=== PATIENT | female | born 1970 | race Caucasian/White ===

== ENCOUNTER → 2016-03-23 12:29 | Day surgery (SDC) | payer OTHER ==
[~2016-03-23 12:29] MED LIST: Buffered Lidocaine 1% SYR 3ML* 3 ML/SYR SYRINGE INTRADERM ONE; Buffered Lidocaine 1% SYR 3ML* 3 ML/SYR SYRINGE ONE; Bupivacaine 0.25% EPI 200,000* 30 ML SDV ONE; Dexamethasone IV* 4 MG/ML 1 ML (4 MG) ONE; Dexamethasone TAB* 4 MG PO ONE; Famotidine IV* 10 MG/ML 2 ML (20 mg) IV ONE; Famotidine IV* 10 MG/ML 2 ML (20 mg) ONE; Glycopyrrolate IV* 0.2 MG/ML 1 ML VIAL ONE; KETAMINE HCL* 50 MG/ML 10 ML VIAL ONE; Ketorolac INJ* 30 MG/ML 1 ML VIAL ONE; Lidocaine 2% MPF* 2 ML VIAL ONE; Midazolam* 1 MG/ML 5 ML VIAL (5 MG) ONE; Morphine INJ* 10 MG/ML 1 ML CARPUJECT ONE; Morphine INJ* 2 MG/ML 1 ML CARPUJECT IV PRN; Neostigmine Methylsulfate* 2 MG/2 ML SYRINGE ONE; Ondansetron INJ* 2 MG/ML VIAL ONE; PROCHLORPERAZINE INJ 5 MG/ML 2 ML VIAL IV PRN; PROCHLORPERAZINE INJ 5 MG/ML 2 ML VIAL ONE; Propofol* 10 MG/ML 20 ML BTL IV PUSH ONE; Scopolamine 1.5 mg* PATCH ONE; Scopolamine 1.5 mg* PATCH TRANSDERM ONE; Scopolamine PATCH Remove* 1 NOTE MISC PATCH OFF ONE; ceFAZolin 2 GM PREMIX (*) 2 GM/50 ML BAG IVPB ONE; fentaNYL* 50 MCG/ML 2 ML VIAL (100 MCG VIAL) ONE; oxyCODONE/Acetamin 5/325 MG* TAB ONE; oxyCODONE/Acetamin 5/325 MG* TAB PO PRN
[2016-03-23 13:12] LABS: Manual Entry Verification HAN0055; UR Preg Internal Control QC Line Present
--- NOTE | 2016-03-23 16:22 | SURGPN ---
Brief Operative Note - Surgery Procedures: Procedures OPERATIVE REPORT PRE-OP: Right upper abdominal pain POST-OP: Same PROCEDURE: Laparoscopic cholecystectomy SURGEON: MD Eddy ANESTHESIA: General with Local with DrChago [place] ASST: YELENA Rod IVF: 1 liter of crystalloid EBL: min SPECIMEN: gallbladder DRAIN: none WOUND CLASS: 2 COMPLICATIONS: none TO PACU
[2016-03-23] MEDS: fentaNYL* 50 MCG/ML 2 ML VIAL (100 MCG VIAL) IV PRN ×4 (17:16→18:10)
[2016-03-23 20:19] VITALS: BP 118/70
--- NOTE | 2016-03-24 08:37 | OP ---
DATE OF OPERATION: 03/23/16 - [facility] DATE OF : 70 SURGEON: Jorge Kam MD PRESIDENT AND CEO: YELENA Miller ANESTHESIOLOGIST: Dr. Quiles. ANESTHESIA: General with local. PRE-OPERATIVE DIAGNOSIS: Right upper quadrant abdominal pain. POST-OPERATIVE DIAGNOSIS: Right upper quadrant abdominal pain. OPERATIVE PROCEDURE: Laparoscopic cholecystectomy. ESTIMATED BLOOD LOSS: Minimal. WOUND CLASSIFICATION: II. DRAINS: None. COMPLICATIONS: None. SPECIMEN: Gallbladder. FINDINGS: Normal appearing gallbladder, liver, and stomach. BRIEF HISTORY: Ms. Madina Reyes is a 46-year-old woman with significant right upper quadrant abdominal pain consistent with biliary tract disease present for THE last six to eight months who has undergone extensive workup which, however, has been unremarkable. She has no other abdominal complaints; and, after a long discussion which has been clearly documented in the office notes and preoperatively transcribed history and physical, she is now to undergo an elective laparoscopic cholecystectomy in the hope that this will improve her discomfort. As had been emphasized, there is significant risks which have all been explained as well as the strong possibility that removing her gallbladder may not improve her symptoms and she may have recurrent pain in the face of significant potential for risks. Both she and her are aware of this, and give their written informed consent to proceed. DESCRIPTION OF PROCEDURE: Written informed consent was obtained. The abdomen was marked with indelible ink and preoperative antibiotics were administered. The patient was taken to the operating room, placed in a supine position. Sequential compression devices and a warming blanket were applied. General anesthesia was administered, and the abdomen was prepped and draped in the usual sterile fashion. Time-out verification was completed. Next, a small transverse incision was made just above the umbilicus at the midline. The peritoneal cavity was entered under direct vision. A 12-mm blunt port was inserted, and the abdomen was insufflated to 15 mmHg. Under direct vision, an 11-mm epigastric port was placed and two 5-mm ports were placed on the right side of the abdominal wall. The gallbladder was identified. It was bluish in color and its wall was thin. There were some adhesions from the omentum which were taken down sharply, but did not appear to be pathologic. The liver, both the right and left lobes of the liver, were normal. No pericholecystic fluid or wall thickening. The gallbladder was elevated up over the liver bed and, with care, the peritoneum along the medial and lateral aspects of the gallbladder was taken down to identify the cystic duct and artery as they entered the gallbladder. I took a significant portion of the inferior part of the gallbladder off the liver bed using the critical view technique to assure myself of these structures. The cystic duct appeared to be of normal and expected caliber. The cystic duct and artery were then doubly clipped and divided, and the gallbladder was removed from the liver bed using cautery and placed in an Endo Catch bag and brought out through the epigastric port. The liver was elevated. There was no evidence of bleeding or bile leak. All ports were removed under direct vision of the camera. At this point, it was noted that there was some bleeding from the lateral 5-mm port site, which is not controlled with pressure, and I did place a single 0 Polysorb transfascial suture using the EndoClose needle with successful control of the bleeding that had been running down the abdominal wall internally up over the liver. This blood was irrigated and hemostasis was assured. Once again, the ports were all removed. The umbilical fascia was closed with interrupted 0 Polysorb suture. The skin at all four incisions was approximated with subcuticular 4-0 Polysorb suture. Steri-Strips and sterile dressings were applied. The patient tolerated the procedure well, and was taken to the recovery room in stable condition. CC: [facility]; Dr. Joe Hubbard, Gastroenterology; Dr. Kyrie Pearson, [facility] Internal Medicine. * [id number]/CPS #: [id number] MTDD
== END | disposition home or self-care (01) ==
LOC: OR 12:29
PROVIDERS: ATTEND Surgery
DX: K81.1 Chronic cholecystitis (principal); G35 Multiple sclerosis
CPT/HCPCS: 81025; 88304; A9270-GY; J0690; J0780; J1100; J1885; J2250; J2270; J2405; J2704; J3010

== ENCOUNTER 2017-01-06 17:55 | Emergency (ER) | payer OTHER ==
[2017-01-06 18:12] VITALS: BP 115/74
[2017-01-06] MEDS ORDERED: Ciprofloxacin TAB* 500 MG PO ONE (18:55)
[2017-01-06] MEDS ORDERED: Phenazopyridine TAB* 100 MG PO ONE (18:55)
--- NOTE | 2017-01-06 21:37 | UC ---
Rocky Orlando Thomas, scribed for Ezekiel Morris MD on 01/06/17 at 1855 . Complaint Female HPI - HPI Summary HPI Summary: The pt is a 46 y/o F presenting to Urgent Care c/o dysuria and hematuria that began three days ago but worsened today. The pain is rated 8/10. The pain is aggravated by voiding and is alleviated by nothing. 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 Pt additionally c/o lower abdominal pain. Pt denies back pain, flank pain, fever, and chills. Her last menstrual cycle ended one week ago. - History Of Current Complaint Chief Complaint: UCGU Stated Complaint: UTI Time Seen by Provider: 01/06/17 18:38 Hx Obtained From: Patient Hx Last Menstrual Period: one week ago ended Onset/Duration: Lasting Days - 3, Still Present, Worse Since - today Timing: Constant Severity Currently: Moderate Pain Intensity: 8 Pain Scale Used: 0-10 Numeric Aggravating Factor(s): Urination Alleviating Factor(s): Nothing Associated Signs And Symptoms: Negative: Fever, Back Pain - Allergies/Home Medications Allergies/Adverse Reactions: Allergies Allergy/AdvReac Type Severity Reaction Status Date / Time Azithromycin Allergy Rash Verified 01/06/17 18:12 SURGICAL TAPE Allergy RED RASH Uncoded 01/06/17 18:12 PMH/Surg Hx/FS Hx/Imm Hx Previously Healthy: Yes - NEGATIVE: HTN, DM - Surgical History Surgical History: Yes Surgery Procedure, Year, and Place: 1986 TONSILLECTOMY, [place]. 2013 [facility]ROID [facility]SY WITH [facility] [place] [facility] - Family History Known Family History: Positive: Other - Patient states FHx is not relevant to current complaint - Social History Lives: With Family Alcohol Use: Occasionally Alcohol Amount: 1-2 Substance Use Type: None Smoking Status (MU): Never Smoked Tobacco - Immunization History Most Recent Influenza Vaccination: 2014/2015 Review of Systems Gastrointestinal: Abdominal Pain - lower Genitourinary: Dysuria, Hematuria Is Patient Immunocompromised?: No All Other Systems Reviewed And Are Negative: Yes Physical Exam Triage Information Reviewed: Yes Vital Signs: Initial Vital Signs Temp 97.3 F 01/06/17 18:09 Pulse 89 01/06/17 18:09 Resp 12 01/06/17 18:09 BP 115/74 01/06/17 18:09 Pulse Ox 99 01/06/17 18:09 Vital Signs Reviewed: Yes - Additional Comments VITAL SIGNS: Reviewed. GENERAL: Patient is a well developed and nourished female who is lying comfortable in the stretcher. Patient is not in any acute respiratory distress. HEAD AND FACE: Normocephalic EYES: PERRLA, EOMI x 2. EARS: Hearing grossly intact. MOUTH: Oropharynx within normal limits. NECK: Supple, trachea is midline, no adenopathy, no JVD, no carotid bruit. CHEST: Symmetric, no tenderness at palpation LUNGS: Clear to auscultation bilaterally. No wheezing or crackles. CVS: Regular rate and rhythm, S1 and S2 present, no murmurs or gallops appreciated. ABDOMEN: Soft, non-tender. Bowel sounds are normal. No abdominal abnormal pulsations. EXTREMITIES: Full ROM in all major joints, no edema, no cyanosis or clubbing. NEURO: Alert and oriented x 3. No acute neurological deficits. Speech is normal and follows commands. SKIN: Dry and warm Complaint Female Dx - Course Course Of Treatment: The pt is a 46 y/o F presenting to Urgent Care c/o dysuria and hematuria that began three days ago but worsened today. Patient additionally c/o lower abdominal pain. Patient denies back pain, flank pain, fever, and chills. The patient is diagnosed with cystitis. She will be discharged with a prescription of Ciprofloxacin and Pyridium. She will follow up with her primary care physician in three days. - Differential Dx/Diagnosis Differential Diagnosis/HQI/PQRI: Urinary Tract Infection Provider Diagnoses: Cystitis. Discharge - Discharge Plan Condition: Stable Disposition: HOME Prescriptions: Ciprofloxacin TAB* [Cipro 500 MG TAB*] 500 mg PO BID #6 tab Phenazopyridine TAB* [Pyridium 100 mg TAB*] 100 mg PO TID #9 tab Patient Education Materials: Urinary Tract Infection in Women (ED), Pelvic Pain in Women (ED) Referrals: John Pearson MD [Primary Care Provider] - 3 Days Additional Instructions: Follow up with your primary care provider in 3 days. Return to urgent care for any new or worsening symptoms. The documentation as recorded by the Rocky esteves Thomas accurately reflects the service I personally performed and the decisions made by , Ezekiel Morris MD.
== END 2017-01-06 19:22 | disposition home or self-care (01) ==
LOC: UCEAST 17:55
DX: N30.91 Cystitis, unspecified with hematuria (principal)
CPT/HCPCS: 87077; 87086; 87186; 99212; A9270-GY; G0463

== ENCOUNTER 2017-01-17 11:13 | Emergency (ER) | payer OTHER ==
[2017-01-17 11:25] VITALS: BP 113/61
--- NOTE | 2017-01-17 12:02 | UC ---
Back Pain HPI - HPI Summary HPI Summary: Pt presents with flank pain. She tells me that she was seen here about 10 days for UTI like symptoms, had a positive UA, and was treated with cipro for 3 days - but did not have full resolution of her symptoms. She waited until 01/15 and called her PCP who rx'd Bactrim - she took a dose of that and developed a rash. Called her PCP the next day and was told to stop Bactrim and stop Amoxicillin, which she took one dose of yesterday. Today she presents with continued urinary symptoms, frequency, burning, and bladder spasms accompanied by b/l flank pain. She reports that over the last 5 days she has felt feverish, but has not taken her temp. Mild nausea, but not vomiting. No abdominal pain other than suprapubic discomfort related to urine sxs. Denies SOB, cough, chest pain, V/D/C, hematuria, vaginal discharge, bleeding, or odor. - History of Current Complaint Hx Obtained From: Patient Hx Last Menstrual Period: 12/23/16 Onset/Duration: Gradual Onset Timing: Constant Severity Initially: Moderate Severity Currently: Moderate Pain Intensity: 6 Pain Scale Used: 0-10 Numeric Character: Sharp, Dull, Aching <Dylan White - Last Filed: 01/17/17 12:23> <Kanika Romeo - Last Filed: 01/17/17 12:42> - History of Current Complaint Chief Complaint: UCGU Stated Complaint: LOWER BACK PAIN - Allergies/Home Medications Allergies/Adverse Reactions: Allergies Allergy/AdvReac Type Severity Reaction Status Date / Time Azithromycin Allergy Rash Verified 01/17/17 11:21 Sulfamethoxazole Allergy flushing Verified 01/17/17 11:21 w/Trimethoprim rash [From Bactrim] chills joint pain SURGICAL TAPE Allergy RED RASH Uncoded 01/17/17 11:21 PMH/Surg Hx/FS Hx/Imm Hx Previously Healthy: Yes Neurological History: Other Other Neurological History: MS - Surgical History Surgical History: Yes Surgery Procedure, Year, and Place: 1986 TONSILLECTOMY, [place]. 2013 [facility]ROID BIOPSY WITH [facility] [place] [facility]. hakeem - Family History Known Family History: Positive: Other - Patient states FHx is not relevant to current complaint Family History: NON CONTRIBUTORY - Social History Alcohol Use: Occasionally Alcohol Amount: 1-2 Substance Use Type: None Smoking Status (MU): Never Smoked Tobacco - Immunization History Most Recent Influenza Vaccination: <Dylan White - Last Filed: 01/17/17 12:23> Review of Systems Constitutional: Fever, Chills Skin: Negative Eyes: Negative ENT: Negative Respiratory: Negative Cardiovascular: Negative Gastrointestinal: Nausea Genitourinary: Dysuria, Frequency, Urgency Motor: Negative Neurovascular: Negative Musculoskeletal: Other: - Flank pain Neurological: Negative Psychological: Negative All Other Systems Reviewed And Are Negative: Yes <Dylan White - Last Filed: 01/17/17 12:23> Physical Exam Triage Information Reviewed: Yes Appearance: Well-Appearing, Well-Nourished Vital Signs: Initial Vital Signs Temp 98 F 01/17/17 11:22 Pulse 79 01/17/17 11:22 Resp 16 01/17/17 11:22 BP 113/61 01/17/17 11:22 Pulse Ox 100 01/17/17 11:22 Vital Signs Reviewed: Yes Neck: Positive: Supple, Nontender, No Lymphadenopathy Respiratory: Positive: Chest non-tender, Lungs clear, Normal breath sounds, No respiratory distress, No accessory muscle use Cardiovascular: Positive: RRR, No Murmur, Pulses Normal Abdomen Description: Positive: No Organomegaly, Soft, CVA Tenderness (R) - Mild , CVA Tenderness (L) - Mild, Other: - TTP over suprapubic region. Negative: Distended, Guarding Bowel Sounds: Positive: Present Musculoskeletal: Positive: Strength Intact - Spine, ROM Intact - Spine, No Edema Neurological: Positive: Alert, Muscle Tone Normal Psychological: Positive: Age Appropriate Behavior Skin: Negative: rashes <Dylan White - Last Filed: 01/17/17 12:23> Vital Signs: Initial Vital Signs Temp 98 F 01/17/17 11:22 Pulse 79 01/17/17 11:22 Resp 16 01/17/17 11:22 BP 113/61 01/17/17 11:22 Pulse Ox 100 01/17/17 11:22 <Kanika Romeo - Last Filed: 01/17/17 12:42> Back Pain Course/Dx - Course Course Of Treatment: Pt with history of positive UA and culture, had relief with cipro - but not complete resolution of symptoms. UA today shows no sign of infection, which is not surprising given recent anbx history. Signs and symptoms of potential mild pyelonephritis - will treat with po Cipro for 7 days. Advised to monitor for fever, nausea, vomiting, or increasing back pain to go to ED - Differential Dx/Diagnosis Differential Diagnosis/HQI/PQRI: Renal Colic, Strain, Sprain, Other - UTI. pyelonephritis Provider Diagnoses: Flank pain. UTI <Dylan White - Last Filed: 01/17/17 12:23> Discharge <Dylan White - Last Filed: 01/17/17 12:23> <Kanika Romeo - Last Filed: 01/17/17 12:42> - Discharge Plan Condition: Stable Disposition: HOME Prescriptions: Ciprofloxacin TAB* [Cipro 250 MG Tab*] 250 mg PO BID #14 tab Patient Education Materials: Urinary Tract Infection in Women (ED), Kidney Infection (ED) Referrals: John Pearson MD [Primary Care Provider] - Additional Instructions: Drink plenty of water! Monitor for increasing fever, chills, nausea, vomiting, back pain, or blood in your urine - if you develop any of these please go to the ED Attestation Statement User Type: Provider - I was available for consult. This patient was seen by the EUGENIO. The patient was not presented to, seen by, or examined by me. -Tammi <Kanika Romeo - Last Filed: 01/17/17 12:42>
--- NOTE | 2017-01-18 19:57 | UC ---
Progress - Progress Note Progress Note: urine culture neg no change manangement lj 01/18/17
== END 2017-01-17 12:35 | disposition home or self-care (01) ==
LOC: UCEAST 11:13
DX: Z72.89 Other problems related to lifestyle (principal); N39.0 Urinary tract infection, site not specified
CPT/HCPCS: 81003; 87086; 99212; G0463

== ENCOUNTER 2017-07-24 21:05 | Emergency (ER) | payer OTHER ==
[2017-07-24 21:15] VITALS: BP 124/57
--- NOTE | 2017-07-24 21:23 | UC ---
Complaint Female HPI - HPI Summary HPI Summary: 47 yo female presents with burning with urination since this morning. She tells me that she has a significant history of interstitial cystitis and moderate- severe bladder pain at baseline, but this burning on urination feels different than her usual. She has not tried anything OTC. Has not been sexually active in over a month and does not want STD testing. Denies fever, chills, abdominal pain , n/v/d/c, flank pain, vaginal pain/discharge/odor. - History Of Current Complaint Chief Complaint: UCGU Stated Complaint: POSS UTI Hx Obtained From: Patient Hx Last Menstrual Period: 1 MONTH AGO Onset/Duration: Sudden Onset Timing: Constant Severity Initially: Moderate Severity Currently: Moderate Pain Intensity: 5 Pain Scale Used: 0-10 Numeric Character: Burning - Allergies/Home Medications Allergies/Adverse Reactions: Allergies Allergy/AdvReac Type Severity Reaction Status Date / Time azithromycin Allergy Severe Rash, Verified 07/24/17 21:16 DIFFICULTY BREATHING sulfamethoxazole Allergy Severe FLUSHING Verified 07/24/17 21:16 [From Bactrim] RASH, CHILLS, JOINT PAIN trimethoprim [From Bactrim] Allergy Severe FLUSHING Verified 07/24/17 21:16 RASH, CHILLS, JOINT PAIN SURGICAL TAPE Allergy RED RASH Uncoded 07/24/17 21:16 Home Medications: Home Medications D-Mannose PRN 07/24/17 [History] Ocrelizumab [Ocrevus] PRN 07/24/17 [History Confirmed 07/24/17] Quercitin* PRN 07/24/17 [History] Uva Ursi* PRN 07/24/17 [History] PMH/Surg Hx/FS Hx/Imm Hx - Additional Past Medical History Additional PMH: Interstitial cystitis Respiratory History: Asthma - Surgical History Surgical History: Yes Surgery Procedure, Year, and Place: 1986 TONSILLECTOMY, [place]. 2013 THYROID BIOPSY WITH LOCAL/[facility] [place] [facility]. hakeem - Family History Known Family History: Positive: None - Social History Occupation: Employed Full-time Lives: With Family Alcohol Use: None Alcohol Amount: 1-2 Substance Use Type: None Smoking Status (MU): Never Smoked Tobacco - Immunization History Most Recent Influenza Vaccination: 2014/2015 Review of Systems Constitutional: Negative Skin: Negative Respiratory: Negative Cardiovascular: Negative Gastrointestinal: Negative Genitourinary: Dysuria Neurovascular: Negative Neurological: Negative Psychological: Negative All Other Systems Reviewed And Are Negative: Yes Physical Exam - Summary Physical Exam Summary: GENERAL: NAD. WDWN. No pain distress. SKIN: No rashes, sores, lesions, or open wounds. NECK: Supple. Nontender. No lymphadenopathy. CHEST: CTAB. No r/r/w. No accessory muscle use. Breathing comfortably and in no distress. CV: RRR. Without m/r/g. Pulses intact. Brisk cap refill. ABDOMEN: Moderate TTP over bladder (pt says this is her baseline) Soft. No distention or guarding. No CVA tenderness. Bowel sounds present NEURO: Alert. CN II-XII grossly intact. PSYCH: Age appropriate behavior. Triage Information Reviewed: Yes Vital Signs: Initial Vital Signs Temp 97.5 F 07/24/17 21:11 Pulse 76 07/24/17 21:11 Resp 16 07/24/17 21:11 BP 124/57 07/24/17 21:11 Pulse Ox 100 07/24/17 21:11 Complaint Female Dx - Course Course Of Treatment: UA: negative. She declined a pelvic exam today as she has no vaginal symptoms and would like her urine sent for culture. If no growth and still symptomatic will follow up. She sees [facility] for her IC and will notify them as well. No treatment at this time. - Differential Dx/Diagnosis Provider Diagnoses: Dysuria Discharge - Sign-Out/Discharge Documenting (check all that apply): Discharge/Admit/Transfer - Discharge Plan Condition: Stable Disposition: HOME Referrals: John Pearson MD [Primary Care Provider] - Additional Instructions: If you develop a fever, shortness of breath, chest pain, new or worsening symptoms - please call your PCP or go to the ED. 1) We will call you with your urine culture results - if your symptoms worsen or persist, please follow up. - Billing Disposition and Condition Condition: STABLE Disposition: HOME
== END 2017-07-24 21:45 | disposition home or self-care (01) ==
LOC: UCEAST 21:05
DX: R30.0 Dysuria (principal); J45.909 Unspecified asthma, uncomplicated; Z88.1 Allergy status to other antibiotic agents; Z88.2 Allergy status to sulfonamides; Z91.048 Other nonmedicinal substance allergy status
CPT/HCPCS: 81003; 87086; 99212; G0463

== ENCOUNTER 2017-08-29 18:37 | Emergency (ER) | payer OTHER ==
[2017-08-29] MEDS ORDERED: Famotidine IV* 10 MG/ML 2 ML (20 mg) IV SLOW PU ONE (18:57)
[2017-08-29] MEDS ORDERED: methylPREDNISolone 125 MG* 2 ML VIAL IV ONE (18:57)
--- NOTE | 2017-08-29 19:54 | ED ---
Allergic Reaction/Systemic - HPI Summary HPI Summary: Patient is a 47-year-old female presenting to the ED 30 minutes after a bee sting. Patient is allergic to bees. She had an EpiPen on hand and was able to give herself an injection. Ambulance arrived and gave her 50mg IV Benadryl. She arrives to the ED feeling much improved, however still endorses some tightness to the throat. Vital signs are stable on arrival. She denies any nausea, headache, abdominal pain. - History of Current Complaint Chief Complaint: EDAllergicReaction Time Seen by Provider: 08/29/17 18:41 Hx Obtained From: Patient Hx Last Menstrual Period: 1 MONTH AGO Onset/Duration: Sudden Onset Timing: Constant Severity Initially: Severe Severity Currently: Mild Pain Intensity: 0 Pain Scale Used: 0-10 Numeric Alleviating Factor(s): Antihistamines, Epinephrine Associated Signs And Symptoms: Positive: Throat Tightening - Related Hx Possible Reaction To: Other: - bee - Allergies/Home Medications Allergies/Adverse Reactions: Allergies Allergy/AdvReac Type Severity Reaction Status Date / Time azithromycin Allergy Severe Rash, Verified 07/24/17 21:16 DIFFICULTY BREATHING sulfamethoxazole Allergy Severe FLUSHING Verified 07/24/17 21:16 [From Bactrim] RASH, CHILLS, JOINT PAIN trimethoprim [From Bactrim] Allergy Severe FLUSHING Verified 07/24/17 21:16 RASH, CHILLS, JOINT PAIN bee venom protein (honey bee) Allergy Intermediate Anaphylatic Verified 20:33 Shock SURGICAL TAPE Allergy RED RASH Uncoded 07/24/17 21:16 PMH/Surg Hx/FS Hx/Imm Hx Previously Healthy: Yes Endocrine/Hematology History: Reports: Hx Thyroid Disease - THYROID GOITER AND CYST - BENIGN Denies: Hx Diabetes, Hx Anemia Cardiovascular History: Denies: Hx Hypertension, Hx Pacemaker/ICD Respiratory History: Reports: Hx Asthma - USE INHALER Denies: Hx Chronic Obstructive Pulmonary Disease (COPD) GI History: Reports: Hx Gastroesophageal Reflux Disease - ACID REFLUX, Other GI Disorders - HX MILD GASTRITIS - 2015 Denies: Hx Jaundice, Hx Ulcer History: Reports: Other Problems/Disorders - HX OF UTI'S NONE IN LAST YEAR Denies: Hx Renal Disease Musculoskeletal History: Reports: Hx Bursitis - HX OF LEFT HIP, Other Musculoskeletal History - MS Denies: Hx Osteoporosis Sensory History: Reports: Hx Contacts or Glasses - READING GLASSES Opthamlomology History: Reports: Hx Contacts or Glasses - READING GLASSES Neurological History: Reports: Hx Migraine - RARELY 1 PER YEAR, Other Neuro Impairments/Disorders - MULTIPLE SCLEROSIS - MILD WEAKNESS ON LEFT SIDE - FOOT AND HAND Psychiatric History: Denies: Hx Panic Disorder - Cancer History Hx Chemotherapy: No Hx Radiation Therapy: No - Surgical History Surgery Procedure, Year, and Place: 1986 TONSILLECTOMY, [place]. 2013 THYROID BIOPSY WITH LOCAL/[facility] [place] [facility]. hakeem Hx Anesthesia Reactions: Yes - VOMITING/ THYROID - LOCAL- NEEDED TO INCREASE FOR EFFECT - Immunization History Hx Pertussis Vaccination: No Immunizations Up to Date: Unable to Obtain/Confirm Infectious Disease History: No Infectious Disease History: Reports: History Other Infectious Disease - HSV Denies: Hx Clostridium Difficile, Hx Hepatitis, Hx Human Immunodeficiency Virus (HIV), Hx of Known/Suspected MRSA, Hx Shingles, Hx Tuberculosis, Hx Known/ Suspected VRE, Hx Known/Suspected VRSA, Traveled Outside the [place] in Last 30 Days - Family History Known Family History: Positive: None - Social History Occupation: Employed Full-time Lives: With Family Alcohol Use: None Alcohol Amount: 1-2 Hx Substance Use: No Substance Use Type: Reports: None Hx Tobacco Use: No Smoking Status (MU): Never Smoked Tobacco Review of Systems Constitutional: Negative Negative: Fever, Chills, Fatigue, Skin Diaphoresis Negative: Palpitations, Chest Pain Negative: Shortness Of Breath, Cough Genitourinary: Negative Positive: no symptoms reported, see HPI Negative: Arthralgia, Myalgia Skin: Negative Neurological: Negative All Other Systems Reviewed And Are Negative: Yes Physical Exam Triage Information Reviewed: Yes Vital Signs On Initial Exam: Initial Vitals Temp Pulse Resp BP Pulse Ox 98.3 F 85 16 136/57 100 08/29/17 18:40 08/29/17 18:40 08/29/17 18:40 08/29/17 18:40 08/29/17 18:40 Vital Signs Reviewed: Yes Appearance: Positive: Well-Appearing, Well-Nourished Skin: Positive: Warm, Skin Color Reflects Adequate Perfusion Head/Face: Positive: Normal Head/Face Inspection Eyes: Positive: EOMI, IGNACIO, Conjunctiva Clear ENT: Positive: Pharynx normal, Uvula midline, Other - airway patent. Negative: Tonsillar swelling, Tonsillar exudate, Hoarse voice Neck: Positive: Supple, Nontender, No Lymphadenopathy Respiratory/Lung Sounds: Positive: Clear to Auscultation, Breath Sounds Present Cardiovascular: Positive: RRR, Pulses are Symmetrical in both Upper and Lower Extremities Musculoskeletal: Positive: Normal, Strength/ROM Intact Neurological: Positive: Sensory/Motor Intact, Alert, Oriented to Person Place, Time, Speech Normal Diagnostics - Vital Signs Vital Signs Temp Pulse Resp BP Pulse Ox 08/29/17 18:40 98.3 F 85 16 136/57 100 - Laboratory Lab Statement: Any lab studies that have been ordered have been reviewed, and results considered in the medical decision making process. Allergic Reaction Course/Dx - Course Course Of Treatment: During the course of treatment, the patient is evaluated for allergic reaction due to a bee sting. She had epinephrine from her EpiPen prior to arrival. She was given 50mg IV Benadryl in the ambulance on the way to the ED. Physical examination, she appears well, however states she is still feeling some throat tightness but no difficulty swallowing or difficulty breathing. Airway is patent. Vital signs stable. O2 100% on room air. She is given 125 mg IV methylprednisolone and famotidine 40 mg IV. She is observed for 2 hours in the ED or 2.5 hours since EpiPen delivery. She is feeling much improved and is requesting home. - Diagnoses Provider Diagnoses: Anaphylactic reaction Discharge - Sign-Out/Discharge Documenting (check all that apply): Discharge/Admit/Transfer - Discharge Plan Condition: Stable Disposition: HOME Patient Education Materials: Anaphylaxis (ED) Referrals: John Pearson MD [Primary Care Provider] - Additional Instructions: May take benadryl this evening before bed Drink plenty of water You may take tylenol for any persistent headache tonight return for any worsening symptoms - Billing Disposition and Condition Condition: STABLE Disposition: Home
[2017-08-29] MEDS ORDERED: Ketorolac INJ* 30 MG/ML 1 ML VIAL IV PUSH ONE (20:31)
[2017-08-29 21:16] VITALS: BP 119/66
== END 2017-08-29 21:14 | disposition home or self-care (01) ==
LOC: ED 18:37
DX: T63.441A Toxic effect of venom of bees, accidental (unintentional), initial encounter (principal); T78.2XXA Anaphylactic shock, unspecified, initial encounter; R07.0 Pain in throat; Y92.9 Unspecified place or not applicable; Z91.030 Bee allergy status; Z88.3 Allergy status to other anti-infective agents; Z88.2 Allergy status to sulfonamides
CPT/HCPCS: 96374; 96375; 99282; J1885; J2930

== ENCOUNTER 2017-09-14 12:27 | Emergency (ER) | payer OTHER ==
--- NOTE | 2017-09-14 13:12 | UC ---
Lower Extremity/Ankle HPI - HPI Summary HPI Summary: 47 yo female presents with LEFT ankle and foot pain since this morning. She tells me that she went swimming at the [facility] [place] this morning and didn't realize the water was shallow. Jumped in and inverted her left ankle rolling onto her left foot. Has immediate pain. Since that time has been able to apply pressure, but is walking with the assistance of a walking stick due to pain. Has taken ibuprofen with mild relief. Denies numbness or tingling. - History of Current Complaint Stated Complaint: L ANKLE/FOOT INJURY Time Seen by Provider: 09/14/17 13:12 Hx Obtained From: Patient Hx Last Menstrual Period: 1 MONTH AGO Onset/Duration: Sudden Onset Severity Initially: Moderate Severity Currently: Moderate Pain Intensity: 6 Pain Scale Used: 0-10 Numeric Aggravating Factor(s): Standing, Ambulation Able to Bear Weight: Yes - Allergies/Home Medications Allergies/Adverse Reactions: Allergies Allergy/AdvReac Type Severity Reaction Status Date / Time azithromycin Allergy Severe Rash, Verified 09/14/17 13:22 DIFFICULTY BREATHING sulfamethoxazole Allergy Severe FLUSHING Verified 09/14/17 13:22 [From Bactrim] RASH, CHILLS, JOINT PAIN trimethoprim [From Bactrim] Allergy Severe FLUSHING Verified 09/14/17 13:22 RASH, CHILLS, JOINT PAIN bee venom protein (honey bee) Allergy Intermediate Anaphylatic Verified 13:22 Shock SURGICAL TAPE Allergy RED RASH Uncoded 09/14/17 13:22 PMH/Surg Hx/FS Hx/Imm Hx Respiratory History: COPD - Surgical History Surgical History: Yes Surgery Procedure, Year, and Place: 1986 TONSILLECTOMY, [place]. 2013 THYROID BIOPSY WITH LOCAL/[facility] [place] [facility]. hakeem - Family History Known Family History: Positive: None - Social History Occupation: Employed Full-time Lives: With Family Alcohol Use: None Alcohol Amount: 1-2 Substance Use Type: None Smoking Status (MU): Never Smoked Tobacco - Immunization History Most Recent Influenza Vaccination: 2014/2015 Review of Systems Constitutional: Negative Skin: Negative Respiratory: Negative Cardiovascular: Negative Gastrointestinal: Negative Neurovascular: Negative Musculoskeletal: Other: - Left ankle pain. Left foot pain Neurological: Negative Psychological: Negative All Other Systems Reviewed And Are Negative: Yes Physical Exam - Summary Physical Exam Summary: GENERAL: NAD. WDWN. No pain distress. SKIN: No rashes, sores, lesions, or open wounds. NECK: Supple. Nontender. No lymphadenopathy. CHEST: No accessory muscle use. Breathing comfortably and in no distress. CV: Pulses intact PT and DP. Brisk cap refill. MSK: Left ankle: Mild TTP at posterior lateral malleolus. FROM. Strength 5/5. No edema or obvious bony deformities. Negative talar tilt. No increased laxity. LEFT FOOT: Moderate TTP at base of 5th MT. NEURO: Alert. Sensations intact and symmetric B/L LEs PSYCH: Age appropriate behavior. Triage Information Reviewed: Yes Vital Signs: Vital Signs: Temp Pulse Resp BP Pulse Ox 98.7 F 80 18 110/62 100 09/14/17 13:16 09/14/17 13:16 09/14/17 13:16 09/14/17 13:16 09/14/17 13:16 Vital Signs Reviewed: Yes Lower Extremity Course/Dx - Course Course Of Treatment: XR ankle and foot: IMPRESSION: NEGATIVE EXAMINATION. CAM boot and crutches provided. Advised to f/u with Sports Medicine in 1 week. - Differential Dx/Diagnosis Provider Diagnoses: Left foot pain Discharge - Sign-Out/Discharge Documenting (check all that apply): Patient Departure - Discharge Plan Condition: Stable Disposition: HOME Patient Education Materials: Arthralgia (ED) Referrals: John Pearson MD [Primary Care Provider] - [facility] [Provider Group] - 1 Week Additional Instructions: If you develop a fever, shortness of breath, chest pain, new or worsening symptoms - please call your PCP or go to the ED. 1) Rest, Ice, and elevate your foot/ankle as much as possible 2) Use the CAM boot and crutches as much as possible 3) Please schedule a follow up with Sports Medicine at the number below for 1 week - Billing Disposition and Condition Condition: STABLE Disposition: Home
[2017-09-14 13:21] VITALS: BP 110/62
--- NOTE | 2017-09-14 13:55 | RAD ---
INDICATION: Left ankle pain COMPARISON: None TECHNIQUE: AP, lateral, and oblique views were obtained. FINDINGS: The bony structures, joint spaces, and soft tissues are normal for age. IMPRESSION: NEGATIVE EXAMINATION.
--- NOTE | 2017-09-14 13:56 | RAD ---
INDICATION: Left foot injury COMPARISON: None TECHNIQUE: AP, lateral, and oblique views were obtained. FINDINGS: The bony structures, joint spaces, and soft tissues are normal for age. IMPRESSION: NEGATIVE EXAMINATION.
== END 2017-09-14 14:49 | disposition home or self-care (01) ==
LOC: UCEAST 12:27
DX: M79.672 Pain in left foot (principal); J44.9 Chronic obstructive pulmonary disease, unspecified; Z88.2 Allergy status to sulfonamides; Z88.1 Allergy status to other antibiotic agents; Z91.048 Other nonmedicinal substance allergy status; Z91.030 Bee allergy status
CPT/HCPCS: 99212; G0463

== ENCOUNTER 2017-10-20 19:33 | Emergency (ER) | payer OTHER ==
[2017-10-20 19:41] VITALS: BP 114/71
--- OUTSIDE RECORDS SUMMARY | 2017-10-20 19:42 | XMS REPORT ---
:1970 External Reference #:[id number] Author Organization [facility] [place] Address [address] [place] [address] Phone [phone] Care Team Providers Name Role Phone Zeke Pearson M.D. Primary Care Physician Unavailable Payers Type Date Identification Numbers Payment Provider Subscriber Commercial Policy Number: [id number] [employer] Ppo/Pos/Epo/Nap Juan Reyes Group Number: [id number] [address] PayID: [id number] [place] [address] Problems Date Description Provider Status Onset: 09/10/2014 Multiple sclerosis Berkley Frye O.D. Active Note: 2008 Onset: Asthma Active Onset: Migraine Active Onset: Herpes simplex Active Onset: 09/10/2014 Taking medication Berkley Frye O.D. Active Onset: Gastroesophageal reflux disease Active Onset: 09/12/2015 Presbyopia Berkley Frye O.D. Active Onset: 10/25/2015 Punctate keratitis Berkley Frye O.D. Active Onset: 09/23/2016 Hypermetropia Berkley Frye O.D. Active Onset: Concussion injury of brain Active Note: 12/2017 Onset: Chronic interstitial cystitis Active Onset: 09/24/2017 Headache Berkley Frye O.D. Active Onset: 09/24/2017 Postconcussion syndrome Berkley Frye O.D. 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[employer] ETOH Use Denies alcohol use Smoking Patient has never smoked Recreational Drug Use Denies Drug Use Daily Caffeine Does Not Consume Caffeine Allergies, Adverse Reactions, Alerts Date Description Reaction Status Severity Comments 09/12/2015 Azithromycin active 09/12/2015 Bee Sting Anaphylaxis active 09/24/2017 Sulfa Antibiotics active 09/10/2014 NKDA inactive Medications Medication Date Status Form Strength Qnty SIG Indications Ordering Provider [place] 3 Active Capsules 1200mg Unknown /0000 Vitamin D Active Tablets 1000Unit every day Unknown /0000 Magnesium Citrate Active Tablets 100mg Unknown /0000 Lunesta Active Tablets 1mg as needed Unknown /0000 Epipen 2-Zane Active Solution 0.3mg/0.3 Unknown /[address] Auto-Inje ML ct Dulera Active Aerosol 100-5mcg/ 2 puff Unknown /0000 Act twice a day as needed Valacyclovir HCL Active Tablets 500mg 1x per Unknown /0000 day Proair HFA Active Aerosol 108(90Bas as needed Unknown /0000 e) mcg/Act Heparin Sodium Active Solution [id number] Unknown (Porcine) /0000 /ML Lidocaine HCL (PF) Active Solution 1% Instill Unknown /0000 Into Bladder as Needed For Bladder Pain But No More Than Once Lidocaine Active Ointment 5% Unknown /0000 Phenazopyridine HCL Active Tablets 100mg Unknown /0000 Famciclovir Active Tablets 250mg Unknown /0000 Ocrevus Active Solution 300mg/10M infusion Unknown /0000 L q 6 months Quercetin Active Tablets 250mg Unknown /0000 Cystorenew Active Unknown /0000 Gilenya Hx Capsules 0.5mg Unknown /0000 - 09/23 Alvesco Hx Aerosol 160mcg/Ac Unknown /0000 t - 09/10 Famciclovir / Hx Tablets 250mg [place], Zeke /0000 Harish Sullivan - 09/22 Auvi-Q Hx Solution 0.3mg/0.3 Unknown /0000 Auto-Inje ML - ct 09/10 Multi Vitamin Daily Hx Tablets Unknown /0000 - 09/23 Tri-Sprintec Hx Tablets 0.18/0.21 Unknown /0000 5/0.25 - mg-35 mcg 09/23 Prednisone Hx Tablets 5mg Take 8 Unknown /0000 Tablets - By Mouth 09/23 Daily For 2 Days Estradiol Hx Cream 0.1mg/GM Rasheeda, / Cheri Ochoa M.D. 09/23 Ciclopirox Hx Solution 8% Zeke Pearson / Harish Sullivan - 09/23 Amoxicillin/Clavula Hx Tablets 875-125mg Unknown zora Potassium /0000 - 09/23 Oseltamivir Hx Capsules 75mg Zeke Pearson Phosphate / Harish Sullivan - 09/23 Methylprednisolone Hx TBPK 4mg Take as Unknown /0000 Directed - On 09/23 Ciprofloxacin HCL Hx Tablets 250mg Unknown /0000 - 09/23 Amoxicillin Hx Capsules 500mg [place]queen, / Kelby D Gabriela Sullivan 09/23 Sulfamethoxazole/Tr Hx Tablets 800-160mg Ten, imethoprim DS / Graciela Ochoa M.D. 09/23 Ciprofloxacin HCL Hx Tablets 500mg Unknown / - 09/23 Cyclobenzaprine HCL Hx Tablets 10mg Schulz, / Genet - N.P 09/23 Cefdinir Hx Capsules 300mg Unknown /0000 - 09/23 Results Description No Information Procedures Date CPT Code Description Status 09/23/2016 32490 Scanning Computerized Opthalmic Diagnostic Posterior Completed Seg Retina 09/23/2016 57953 Determination Of Refractive State Completed 09/23/2016 76329 Est Patient Comprehensive Exam Completed 09/12/2015 39254 Scanning Computerized Opthalmic Diagnostic Posterior Completed Seg Retina 09/12/2015 89439 Est Patient Comprehensive Exam Completed 09/10/2014 69198 Scanning Computerized Opthalmic Diagnostic Posterior Completed Seg Retina 03/12/2014 18608 Est Patient Intermediate Exam Completed 07/18/2013 18335 Scanning Computerized Opthalmic Diagnostic Posterior Completed Seg Retina 06/23/2013 38088 Est Patient Intermediate Exam Completed 06/10/2012 34221 Est Patient Comprehensive Exam Completed 02/05/2011 25354 Determination Of Refractive State Completed 02/05/2011 69517 Est Patient Comprehensive Exam Completed 11/09/2008 78809 Visual Field Exam Extended Completed 11/02/2008 84274 Determination Of Refractive State Completed 11/02/2008 40527 Est Patient Comprehensive Exam Completed 09/06/2007 49587 Est Patient Comprehensive Exam Completed Encounters Type Date Location Provider CPT E/M Dx Office Visit 10/25/2015 Faisal Brooks MD, Berkley Frye O.D. [id number] H16.142 2:15p pc Office Visit 09/10/2014 Faisal Brooks MD, Berkley Frye O.D. [id number] 340 10:30a pc V58.69 Office Visit 07/18/2013 12:30p Faisal Brooks MD, Berkley Frye O.D. 40649 V58.69 pc V58.69 [id number] Plan of Care 09/24/2017 - Berkley Frye O.D.G35 Multiple sclerosisComments:Smoking can increase the risk of developing or worsening any eye related disease, as well as affect your overall health. If you are a smoker, we strongly recommend that you quit.If you are not a smoker, we strongly recommend that you do not start.F07.81 Postconcussional syndromeComments:Try to take a break from the computer screen every 20 min and look at something 20 ft away for 20 sec to allow your eyes to relax. Also consider turning the brightness down on your monitor.Follow up:1 year You can expect to have your eyes dilated at your next visit. If Dr. Frye orders any additional testing, it may require extra time. We recommend that you bring sunglasses, as dilation drops often make you light sensitive until they wear off. We always recommend you bring someone to drive you home if you are uncomfortable driving with your eyes dilated. If you have any questions before your next visit, feel free to call our office at .R5 HeadacheComments:You have a headache that is not eye related. Please follow up with your primary care doctor.H52.4 PresbyopiaComments:You have presbyopia. This is when the lens in your eye loses the ability to change focus , and happens as we age. A pair of reading glasses will help you see up close.H52.03 Hypermetropia, bilateralComments:You have Hyperopia, or far sightedness, I have given you a prescription for glasses.
--- OUTSIDE RECORDS SUMMARY | 2017-10-20 19:42 | XMS REPORT ---
:1970 External Reference #:[id number] [facility] Address [address] [address] [place] [address] Phone [phone] Care Team Providers Name Role Phone John Pearson MD Primary Care Physician Unavailable Payers Type Date Identification Numbers Payment Provider Subscriber Commercial Policy Number: [id number] [employer] Juan Reyes [employer] Number: [id number] [id number] PayID: [id number] [place] [address] Problems Date Description Provider Status Onset: 06/28/2009 Multiple sclerosis John Pearson M.D.,FACP Active Onset: 06/28/2009 Vitamin D deficiency John Pearson M.D.,FACP Active Onset: 02/27/2013 Genital herpes simplex John Pearson M.D.,FACP Active Onset: 10/05/2013 Intermittent asthma John Pearson M.D.,FACP Active Onset: 10/05/2013 Ventricular premature beats John Pearson M.D.,FACP Active Onset: 10/17/2014 Non-toxic nodular goiter John Pearson M.D.,FACP Active Onset: 09/16/2016 Cholecystectomy John Pearson M.D.,FACP Active Onset: 05/21/2017 Migraine with aura John Pearson M.D.,FACP Active Note: rare Onset: 09/20/2017 Sprain of ankle Armando Healy MD Active Family History Date Family Member(s) Problem(s) Comments Father Heart Disease arrhythmia Mother Obesity Mother Hypertension Mother Arthritis Mother Gallstones Mother Hysterectomy for fibroids Siblings 1 First Brother Obesity First Brother glucose problems Paternal Grandfather Diabetes, Non Insulin Dependent Maternal Grandfather Parkinson's Disease Maternal Grandmother Cancer, Breast Social History Type Date Description Comments Marital Status Lives With 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 Cigarette Use Never Smoked Cigarettes ETOH Use 02/24/2017 Drinks 5 Alcoholic Beverages Per Week Recreational Drug Use Denies Drug Use Smoking Patient has never smoked Daily Caffeine Does Not Consume Caffeine Exercise Type/Frequency Exercises regularly 6-7days/week General Hx Text 1 stepson Allergies, Adverse Reactions, Alerts Date Description Reaction Status Severity Comments 05/04/2013 Azithromycin rash active 10/05/2013 Bee Sting Shock active Fatal 01/16/2017 Sulfamethoxazole / active Mild to Moderate flushing, joint Trimethoprim pain, headaches 03/15/2008 NKDA inactive Medications Medication Date Status Form Strength Qnty SIG Indications Ordering Provider Valacyclovir HCL 07/29 Active Tablets 1gm 30tab one tablet A60.00 ora s po daily MD Brina Famciclovir 07/29 Active Tablets 500mg 30tab one tablet A60.00 ora s po bid x 5 MD Brina days prn exacerbati on Norgestim-Eth 07/29 Active Tablets 0.18/0.21 28tab one tablet A60.00 Dvorah Estrad Triphasic 5/0.25 s po daily MD Brina mg-35 mcg Penlac 05/21 Active Solution 8% 6.600 topical ml qd, jose antonio Pearson, weekly w/ M.D.,FACP alcohol wipes Medrol 02/26 Active Tablets 4mg 1pak medrol dosepalinh Pearson, as M.D.,FACP directed Famciclovir 11/11 Active Tablets 250mg 30tab 2 tabs x1, s then 1 tab Cris Pearson, twice a M.D.,FACP day for 2 days, then 1/2 tab twice a day for 5 days, repeat as needed Maxalt 02/17 Active Tablets 10mg 12tab take one Criselda s daily as Leon, needed for M.D. migraines Eszopiclone 10/17 Active Tablets 3mg 30tab take 1 s tablet by [facility] every night at bedtime as needed for insomnia -- maximum daily dose of 1 tablet per day Epipen 2-Zane 08/24 Active Device 0.3mg/0.3 1unit use prn 995.0 ML s Varn, N.P. Vitamin D 08/05 Active Tablets 1000Unit 5 po qd Laurie Quintero Active Tablets 0.8mg 1 po qd Unknown Vitamins /0000 Magnesium Active Tablets 120mg 2 tab po Unknown Citrate daily Proair HFA Active Aerosol 108(90Bas 1unit 2 puffs by Unknown /0000 e) s mouth mcg/Act every 4 hours as needed Flonase Active Suspension 50mcg/Act 16uni Inhale One 477.9 Ezekiel E. /0000 ts [place] Into Elma, Each M.D. Nostril Once Daily prn [place] 3 Active Capsules 1000mg 3 by mouth Unknown / qd. Valacyclovir HCL Active Tablets 500mg 90tab 1 tab s daily Cris Pearson M.D.,[facility] Dulera Active Aerosol 200-5mcg/ 2 puff Unknown Act twice a day Ocrevus Active Solution 300mg/10M Q6 months / L Zyrtec Allergy Active Capsules 10mg take one tablet by mouth in the evening prn Sudafed 12 Hour Active Tablets ER 120mg 1 by mouth Unknown 12HR twice day as needed Quercetin Active Tablets 50mg 2 tabs Unknown /0000 once a day Aloe Vera Active Capsules 25mg 2 tabs Unknown /0000 twice a day Tamiflu 04/23 Hx Capsules 75mg 10cap 1 by mouth John s twice a Cris Pearson, - day x 5 M.DChago,FACP Doxycycline 02/24 Hx Tablets 100mg 20tab 1 by mouth John s twice a Cris Pearson, - day [facility] 03/06 Ciprofloxacin 01/17 Hx Tablets 250mg 14tab one by Other s mouth Ordering - twice a Provider 01/24 day for days Amoxicillin 01/16 Hx Capsules 500mg 15cap 1 by mouth Kelby D. s three [place], - times a M.D. Bactrim DS 01/09 Hx Tablets 800-160mg 6tabs 1 tablet Graciela /2017 twice a Cotton, - day for 3 M.D. Acetaminophen-Co 04/01 Hx Tablets 300-15mg 20tab 1-2 tabs Alba Landon deine #2 s by mouth MD Kirill - every 4h 01/03 as needed pain Cipro 03/03 Hx Tablets 250mg 10tab twice a John s day for 5 D. Lili, - days prn M.D.,[facility] 01/03 UTI Gabapentin 02/25 Hx Capsules 100mg 90cap 1 tablet Criselda s by mouth Leon, - up to 3 M.D. 01/03 times day, as need for pain Omeprazole 01/[address] 20mg 30cap 1 by mouth s every day Cris Pearson, - when on M.D.,[facility] 02/24 NSAIDs Meloxicam 01/22 Hx Tablets 7.5mg 60tab 1 by mouth s twice a Cris Pearson, - day for 2 M.D.,[facility] 02/24 wks as needed Sucralfate 10/24 Hx Suspension 1GM/10ML 480un 10 K29.00 its milliliter Cris Pearson, - s four M.D.,[facility] 01/22 times a day as needed Omeprazole 07/[address] 20mg 30cap 1 tab bid J02.9 s for 6 wks Cris Pearson, - then qd M.D.,[facility] 01/22 Dulera 07/15 Hx Aerosol 200-5mcg/ 1unit 2 puff Act s twice a Ordering - day Provider 04/29 [place] 05/14 Hx Aerosol 160mcg/Ac 1 puff t twice a Cris Pearson, - day M.D.,[facility] 07/15 [place] 10/13 Hx Aerosol 80mcg/Act 6.1un Inhale 1 its puff By Cris Pearson, - Mouth Two [facility] 05/14 Daily Cipro 04/04 Hx Tablets 250mg 10tab 1 tablet 599.0 Stephen s by mouth KIRSTIN York - twice a 04/09 day x's days [facility] Miconazole 04/04 Hx Kit 4% Apply as 599.0 Stephen 3-Day Combo directed KIRSTIN York - if you 04/09 vaginal itching, burning, thick curd like discharge Ciprofloxacin 03/28 Hx Tablets 250mg 10tab 1 twice a 590.81 s day x 5 Cris Pearson, - days M.D.,[facility] 04/04 [place] 02/26 Hx Aerosol 80mcg/Act 60uni 1 puff 493.92 ts inhaled Cris Pearson, - twice a M.D.,[facility] 03/28 day for weeks then as directed [place] 01/26 Hx Aerosol 160mcg/Ac 2unit one t s inhalation MD Sandra - s am&pm 10/13 using spacer rinse mouth after use Lysine 10/05 Hx Capsules 500mg 1 by mouth every day Cris Pearson, - M.D.,[facility] 06/22 [place] 08/28 Hx Aerosol 80mcg/Act 60uni 1 puff 493.92 ts inhaled Cris Pearson, - twice a M.D.,[facility] 10/05 day for weeks then as directed Mupirocin 08/17 Hx Ointment 2% 22gm apply once 709.8 daily Varn, N.P. - 08/28 Ibuprofen 08/01 Hx Tablets 800mg 60tab take 1 727.3 Duyen s tablet 3 Gilbert, - times a N.P. 08/17 day. Azelastine HCL 06/22 Hx Solution 0.05% 6ml 1 drop 372.05 twice a Lora, - day as Laurie, FACP 08/01 needed Robitussin DM 05/26 Hx Syrup 100-10mg/ 355ml take 1 5ML teaspoons Varn, N.P. - by mouth 06/22 every hours as needed for cough Augmentin 05/26 Hx Tablets 875-125mg 20tab one by 461.9 s mouth Varn, N.P. - every 12 / hours ten days Fluconazole 05/26 Hx Tablets 100mg 3tabs 1 po every 461.9 3 days Varn, N.P. - 06/22 Tobramycin 05/26 Hx Solution 0.3% 5ml 2 drops in 372.00 each eye Varn, N.P. - every 4 while awake for 7 days Flovent HFA 05/23 Hx Aerosol 110mcg/Ac 1unit 2 puffs t s twice Varn, N.P. - daily 06/22 Benzonatate 05/18 Hx Capsules 100mg 30cap one by 466.0 s mouth Varn, N.P. - three 06/01 daily as needed for cough Medrol (Zane) 05/18 Hx Tablets 4mg 1Pak as 466.0 directed Varn, N.P. - 05/24 Azithromycin 04/26 Hx Tablets 250mg 6tabs two tabs 466.0 day one, Varn, N.P. - one daily 05/04 till Flovent HFA 04/26 Hx Aerosol 44mcg/Act 1unit 2 puffs 466.0 s twice Varn, N.P. - daily 05/10 Ventolin HFA 04/26 Hx Aerosol 108(90Bas 1unit 1 to 2 466.0 e) s inhalation Varn, N.P. - mcg/Act s every 4 04/04 hours needed Tylenol/Codeine 04/26 Hx Tablets 300-30mg 20tab one or two 466.0 Zeke- Harish # s tablets by Cris Pearson, - mouth M.DChago,[facility] 05/26 every to 6 hours as needed for pain Famciclovir 02/27 Hx Tablets 250mg 30tab 2 tabs x1, s then 1 tab Cris Pearson, - twice a [facility] 01/22 day for days, then 1/2 tab twice a day for 5 days as needed Lunesta 12/21 Hx Tablets 2mg 20tab one tab hs s prn Gabriela Watson M.D.,[facility] 03/28 Vitamin D 01/23 Hx Capsules 400Unit 2 po bid [facility]riela [facility] 08/05 Vitamin D-1000 01/12 Hx Tablets 1000Unit 1 po qd Gabriela Watson M.D.,[facility] 01/23 Valacyclovir HCL 11/02 Hx Tablets 1gm 90tab Take One 054.10 s Tablet By Cris Pearson, - Mouth M.DChago,[facility] 02/27 Every Malarone 06/23 Hx Tablets 250-100mg 29tab po qd 1 s day prior Cris Pearson, - to travel [facility]ago,[facility] 01/26 through days after Nasonex 07/08 Hx Suspension 50mcg/Act 17g 2 sprays 477.9 in each Cris Pearson, - nostril Evette.Cris,FACP 01/30 once daily Optivar 07/08 Hx Solution 0.05% 6ml 1 drop in 477.9 affected Cris Pearson, - eye bid [facility]ago[facility] 05/14 Fexofenadine HCL 07/04 Hx Tablets 180mg 30tab 1 tab po 477.9 s qd Cris Pearson, [facility]riela Sullivan[facility] 01/26 Ambien CR 04/23 Hx Tablets ER 6.25mg 30tab 1 qhs po s prn Gabriela Watson M.D.,[facility] 12/21 Ciprofloxacin 02/05 Hx Tablets 250mg 10tab 1 bid x 5 599.0 John s days Gabriela Watson M.D.,[facility] 04/14 Penicillin V 07/05 Hx Tablets 500mg 28tab qid for 7 462 John Potassium s days Gabriela Watson M.D.,[facility] 10/25 Tylenol With 07/05 Hx Tablets 300-30mg 16tab 1-2 po qid 462 John Codeine #3 s prn Gabriela Watson M.D.,[facility] 07/04 Amitriptyline 06/28 Hx Tablets ? 30tab 1 tab qhs s Gabriela Watson M.D.,[facility] 02/05 Caltrate 600 06/28 Hx Tablets 600mg bid Gabriela Watson M.D.,[facility] 01/26 Multivitamins 06/28 Hx Tablets 90tab 1 po qd Gabriela Covarrubias M.D.,[facility] 02/06 Copaxone 04/25 Hx Kit 20mg/ml 1Box sc qd Gabriela Watson M.D.,[facility] 03/02 Vitamin D 04/25 Hx Capsules 1000Unit po bid Gabriela Watson M.D.,[facility] 05/14 Valtrex 03/13 Hx Tablets 500mg 12tab Take One s Tablet By Cris Pearson - Mouth Laurie,[facility] 11/02 Every Hours For 3 Days as Needed Maxalt 09/05 Hx Tablets 10mg 18tab po one at 346.10 s onset; june Cris Pearson, - repeat in Laurie,[facility] 01/22 2 hours /2015 x1. max daily dose three. [place]-3 09/05 Hx Capsules 1000mg bid PO Gabriela Watson M.D.,[facility] 07/24 Valtrex 00/00 Hx Unknown /0000 - 03/13 Ambien /00 Hx Tablets 5mg 20tab 1/2-1 Sourav /0000 s tablet po [place], - [facility] prn M.D. 04/23 Ritalin Hx Tablets 5mg 30tab 1/2 po bid Unknown /0000 s - 05/14 Methylphenidate Hx Tablets 10mg 60tab 1/2-1 bid Unknown HCL /0000 s prn - 01/26 Calcium Citrate Hx Tablets 150mg 1 qd Unknown /0000 - 10/16 Lysine Hx Capsules 500mg 1 po bid Unknown /0000 - 05/26 Valacyclovir HCL Hx Tablets 500mg 90tab 1 by mouth Unknown /0000 s every day - 09/27 Augmentin Hx Tablets 875-125mg 20tab one by Unknown /0000 s mouth - every 12 09/15 hours ten days Benzonatate Hx Capsules 200mg 40cap take 1 Unknown /0000 s capsule by - mouth 09/27 times a day if needed Guaifenesin-Code Hx Syrup 100-10mg/ 240ml 2 teaspoon Unknown ine /0000 5ML by mouth - every 4h 09/27 as needed cough Gilenya Hx Capsules 0.5mg 90cap 1 by mouth Unknown /0000 s every - other day 01/03 Lunesta Hx Tablets 3mg Unknown /0000 - 10/16 Melatonin ER 00/ Hx Tablets ER 3mg 1 tab by Unknown /0000 mouth - every 07/24 night prn Pepcid ac Hx Tablets 10mg 1-4 by Unknown /0000 mouth - every day 01/25 Carbamazepine ER 00/ Hx Caps ER 100mg 1 by mouth Unknown /0000 12HR twice a - day prn 03/27 Oxycodone-Acetam Hx Tablets 5-325mg 1-2 by Unknown inophen /0000 mouth - every 4-6 / hours needed for pain. Ibuprofen 00/ Hx Tablets 800mg by mouth Unknown /0000 three - times a 01/03 day needed Cyclobenzaprine Hx Tablets 10mg 10tab one by Genet HCL /0000 s mouth at [place], - bedtime as [employer] 01/20 spasm Immunizations CPT Code Status Date Vaccine Lot # [id number] Given 11/25/2016 Influenza Virus Vaccine, Quadrivalent, Split, [id number] Preservative Free 53282 Given 09/24/2016 Pneumococcal Conjugate Vaccine 13 Valent For [id number] Intramuscular Use 86054 Given 10/24/2015 Influenza Virus Vaccine, Quadrivalent, Split Virus, Im Use [id number] Given 11/30/2014 Fluvirin Im 3Yrs And Older [id number] Given 11/10/2013 Fluvirin Im 3Yrs And Older 26983 Given 11/10/2013 Influenza Virus Vaccine, Quadrivalent, Split, [id number] Preservative Free 53249 Given 10/05/2013 Pneumonia Vaccine [id number] 59358 Given 10/05/2013 Hepatitis A Vaccine Adult Dosage [id number] 54043 Given 01/02/2013 Flu Vaccine Split Virus Preservative Free For Indiv 3Yr Older 64658 Given 05/15/2011 Tdap - Tetanus/Diptheria/Acellular Pertussis [id number] 65293 Given 12/01/2010 Influenza Virus 3Yrs & Over [id number] 01179 Given 12/01/2009 Influenza Virus 3Yrs & Over 93665 Given 01/04/2009 Influenza Virus Vaccine, Pandemic Formulation [id number] 03011 Given 01/04/2009 Administration Swine Flu Shot 79868 Given 01/02/2009 Influenza Virus 3Yrs & Over Vital Signs Date Vital Result Comment 09/27/2017 Height 63 inches 5'3" Weight 136.00 lb Heart Rate 84 /min Respiratory Rate 16 /min Body Temperature 96.3 F Pain Level 4 BMI (Body Mass Index) 24.1 kg/m2 09/20/2017 Height 63 inches 5'3" Weight 136.00 lb Heart Rate 72 /min Respiratory Rate 16 /min Body Temperature 98.3 F Pain Level 0 BMI (Body Mass Index) 24.1 kg/m2 07/29/2017 Height 63 inches 5'3" Weight 136.00 lb Heart Rate 79 /min BP Systolic 110 mmHg BP Diastolic 68 mmHg O2 % BldC Oximetry 97 % BMI (Body Mass Index) 24.1 kg/m2 Last Menstrual Period [id number] 05/21/2017 Weight 138.00 lb Heart Rate 81 /min BP Systolic Sitting 110 mmHg BP Diastolic Sitting 60 mmHg Body Temperature 97.3 F O2 % BldC Oximetry 98 % 02/24/2017 Weight 137.00 lb Heart Rate 86 /min BP Systolic Sitting 120 mmHg BP Diastolic Sitting 60 mmHg Body Temperature 97.5 F O2 % BldC Oximetry 98 % 01/25/2017 Weight 136.12 lb Heart Rate 73 /min BP Systolic Sitting 118 mmHg BP Diastolic Sitting 64 mmHg O2 % BldC Oximetry 98 % 01/20/2017 Weight 134.75 lb Heart Rate 93 /min BP Systolic 92 mmHg BP Diastolic 54 mmHg Body Temperature 97.6 F O2 % BldC Oximetry 98 % 01/04/2017 Weight 135.00 lb Heart Rate 84 /min BP Systolic Sitting 102 mmHg BP Diastolic Sitting 75 mmHg Body Temperature 97.8 F O2 % BldC Oximetry 98 % 09/16/2016 Weight 138.00 lb Heart Rate 74 /min BP Systolic Sitting 128 mmHg BP Diastolic Sitting 70 mmHg Body Temperature 97.2 F O2 % BldC Oximetry 98 % 04/29/2016 Height 63.5 inches 5'3.50" Weight 127.00 lb Heart Rate 68 /min BP Systolic 116 mmHg BP Diastolic 72 mmHg Respiratory Rate 16 /min Body Temperature 98.1 F BMI (Body Mass Index) 22.1 kg/m2 03/31/2016 Heart Rate 76 /min Respiratory Rate 16 /min Body Temperature 97.5 F 03/27/2016 Weight 129.25 lb Heart Rate 79 /min BP Systolic Sitting 110 mmHg BP Diastolic Sitting 78 mmHg Body Temperature 97.3 F O2 % BldC Oximetry 98 % 03/17/2016 Weight 129.00 lb BP Systolic Sitting 118 mmHg BP Diastolic Sitting 80 mmHg Body Temperature 97.4 F 03/06/2016 Height 63.5 inches 5'3.50" Weight 129.00 lb Heart Rate 68 /min BP Systolic 118 mmHg BP Diastolic 68 mmHg Respiratory Rate 16 /min Body Temperature 98.5 F BMI (Body Mass Index) 22.5 kg/m2 02/26/2016 Height 63.5 inches 5'3.50" Weight 129.00 lb Heart Rate 76 /min BP Systolic Sitting 114 mmHg BP Diastolic Sitting 80 mmHg Respiratory Rate 14 /min BMI (Body Mass Index) 22.5 kg/m2 01/23/2016 Weight 127.50 lb Heart Rate 78 /min BP Systolic Sitting 98 mmHg BP Diastolic Sitting 68 mmHg Body Temperature 97.9 F O2 % BldC Oximetry 98 % 10/25/2015 Weight 133.00 lb Heart Rate 69 /min BP Systolic Sitting 110 mmHg BP Diastolic Sitting 62 mmHg Body Temperature 97.5 F O2 % BldC Oximetry 98 % 07/25/2015 Weight 137.00 lb Heart Rate 76 /min BP Systolic Sitting 106 mmHg BP Diastolic Sitting 64 mmHg Body Temperature 98.1 F O2 % BldC Oximetry 98 % 07/08/2015 Height 63.50 inches 5'3.50" Weight 135.00 lb Heart Rate 76 /min BP Systolic Sitting 102 mmHg BP Diastolic Sitting 68 mmHg Respiratory Rate 20 /min BMI (Body Mass Index) 23.5 kg/m2 05/15/2015 Height 63.50 inches 5'3.50" Weight 136.25 lb Heart Rate 74 /min BP Systolic Sitting 108 mmHg BP Diastolic Sitting 68 mmHg Body Temperature 98.0 F O2 % BldC Oximetry 96 % BMI (Body Mass Index) 23.8 kg/m2 01/10/2015 Height 63.50 inches 5'3.50" Weight 137.00 lb Heart Rate 72 /min BP Systolic Sitting 118 mmHg BP Diastolic Sitting 72 mmHg Respiratory Rate 16 /min BMI (Body Mass Index) 23.9 kg/m2 12/21/2014 Height 63.50 inches 5'3.50" Weight 137.00 lb Heart Rate 75 /min BP Systolic Sitting 102 mmHg BP Diastolic Sitting 68 mmHg Body Temperature 96.9 F O2 % BldC Oximetry 98 % BMI (Body Mass Index) 23.9 kg/m2 10/17/2014 Height 63.50 inches 5'3.50" Weight 142.00 lb Heart Rate 82 /min BP Systolic Sitting 101 mmHg BP Diastolic Sitting 68 mmHg Body Temperature 97.9 F O2 % BldC Oximetry 99 % BMI (Body Mass Index) 24.8 kg/m2 04/04/2014 Weight 138.00 lb Heart Rate 80 /min BP Systolic Sitting 92 mmHg BP Diastolic Sitting 60 mmHg Body Temperature 98.5 F O2 % BldC Oximetry 98 % 03/28/2014 Weight 139.00 lb Heart Rate 71 /min BP Systolic Sitting 111 mmHg auto cuff BP Diastolic Sitting 64 mmHg auto cuff Body Temperature 97.4 F 03/05/2014 Height 63.5 inches 5'3.50" Weight 136.00 lb Heart Rate 68 /min BP Systolic Sitting 108 mmHg BP Diastolic Sitting 70 mmHg Respiratory Rate 16 /min BMI (Body Mass Index) 23.7 kg/m2 10/11/2013 Weight 138.25 lb Heart Rate 68 /min BP Systolic Sitting 100 mmHg BP Diastolic Sitting 48 mmHg Body Temperature 98.6 F 10/05/2013 Height 63.75 inches 5'3.75" Weight 139.00 lb Heart Rate 92 /min BP Systolic Sitting 96 mmHg BP Diastolic Sitting 48 mmHg Body Temperature 97.6 F BMI (Body Mass Index) 24.0 kg/m2 09/27/2013 Weight 137.50 lb Heart Rate 72 /min BP Systolic Sitting 102 mmHg BP Diastolic Sitting 64 mmHg BP Diastolic Standing 64 mmHg Body Temperature 98.7 F 08/28/2013 Weight 135.00 lb Heart Rate 67 /min BP Systolic Sitting 108 mmHg BP Diastolic Sitting 72 mmHg Body Temperature 97.8 F 08/17/2013 Weight 137.75 lb Heart Rate 68 /min BP Systolic Sitting 100 mmHg BP Diastolic Sitting 60 mmHg Body Temperature 98.4 F O2 % BldC Oximetry 98 % 08/01/2013 Weight 134.75 lb Heart Rate 74 /min BP Systolic Sitting 106 mmHg BP Diastolic Sitting 62 mmHg O2 % BldC Oximetry 98 % 06/22/2013 Height 63.75 inches 5'3.75" Weight 133.00 lb Heart Rate 64 /min BP Systolic Sitting 100 mmHg BP Diastolic Sitting 68 mmHg Body Temperature 98.4 F BMI (Body Mass Index) 23.0 kg/m2 05/26/2013 Weight 133.50 lb Heart Rate 84 /min BP Systolic 120 mmHg BP Diastolic 66 mmHg Respiratory Rate 16 /min Body Temperature 98.0 F O2 % BldC Oximetry 100 % 05/18/2013 Weight 139.00 lb Heart Rate 80 /min BP Systolic Sitting 110 mmHg BP Diastolic Sitting 60 mmHg Respiratory Rate 18 /min Body Temperature 97.4 F O2 % BldC Oximetry 100 % Peak Flow Meter 290 300; 290; 280 04/26/2013 Weight 137.00 lb Heart Rate 74 /min BP Systolic Sitting 118 mmHg BP Diastolic Sitting 66 mmHg Respiratory Rate 15 /min Body Temperature 98.4 F 02/27/2013 Height 53.75 inches Weight 132.00 lb Heart Rate 80 /min BP Systolic Sitting 94 mmHg BP Diastolic Sitting 50 mmHg BMI (Body Mass Index) 32.1 kg/m2 02/06/2013 Heart Rate 76 /min BP Systolic Sitting 120 mmHg BP Diastolic Sitting 60 mmHg Respiratory Rate 16 /min 08/24/2012 Weight 137.00 lb Heart Rate 60 /min BP Systolic Sitting 100 mmHg BP Diastolic Sitting 56 mmHg 08/04/2012 Height 63.5 inches 5'3.50" Weight 135.00 lb Heart Rate 56 /min BP Systolic 108 mmHg BP Diastolic 60 mmHg Respiratory Rate 12 /min BMI (Body Mass Index) 23.5 kg/m2 01/27/2012 Heart Rate 72 /min BP Systolic 102 mmHg BP Diastolic 62 mmHg Respiratory Rate 16 /min 09/14/2011 Height 63.5 inches 5'3.50" Weight 142.00 lb Heart Rate 60 /min BP Systolic Sitting 110 mmHg BP Diastolic Sitting 78 mmHg Body Temperature 97.8 F BMI (Body Mass Index) 24.8 kg/m2 05/15/2011 Height 63.5 inches 5'3.50" Weight 140.00 lb Heart Rate 64 /min BP Systolic Sitting 104 mmHg BP Diastolic Sitting 68 mmHg BMI (Body Mass Index) 24.4 kg/m2 01/30/2011 Height 63.5 inches 5'3.50" Weight 144.00 lb Heart Rate 78 /min BP Systolic Sitting 100 mmHg BP Diastolic Sitting 62 mmHg BMI (Body Mass Index) 25.1 kg/m2 07/04/2010 Weight 139.00 lb Heart Rate 70 /min BP Systolic Sitting 100 mmHg BP Diastolic Sitting 62 mmHg Body Temperature 97.9 F lt ear 02/05/2010 Weight 140.00 lb Heart Rate 70 /min BP Systolic Sitting 106 mmHg BP Diastolic Sitting 58 mmHg 07/05/2009 Weight 141.50 lb Heart Rate 80 /min BP Systolic 94 mmHg BP Diastolic 70 mmHg Respiratory Rate 16 /min Body Temperature 98.4 F 06/28/2009 Height 63.5 inches 5'3.50" Weight 144.00 lb Heart Rate 72 /min BP Systolic 110 mmHg BP Diastolic 74 mmHg BMI (Body Mass Index) 25.1 kg/m2 04/25/2009 Height 63.5 inches 5'3.50" Weight 142.50 lb Heart Rate 72 /min BP Systolic Sitting 116 mmHg BP Diastolic Sitting 60 mmHg BMI (Body Mass Index) 24.8 kg/m2 09/05/2008 Height 63.5 inches 5'3.50" Weight 145.00 lb Heart Rate 76 /min BP Systolic Sitting 100 mmHg BP Diastolic Sitting 62 mmHg BMI (Body Mass Index) 25.3 kg/m2 05/15/2008 Height 63.5 inches 5'3.50" Weight 149.00 lb Heart Rate 70 /min BP Systolic Sitting 128 mmHg BP Diastolic Sitting 66 mmHg BMI (Body Mass Index) 26.0 kg/m2 05/02/2008 Weight 149.00 lb Heart Rate 72 /min BP Systolic Sitting 102 mmHg BP Diastolic Sitting 64 mmHg 03/15/2008 Height 63.5 inches 5'3.50" Weight 149.00 lb Heart Rate 62 /min BP Systolic Sitting 118 mmHg BP Diastolic Sitting 64 mmHg BMI (Body Mass Index) 26.0 kg/m2 Results Test Date Test Result H/L Range Note Laboratory test 09/11/2017 Vitamin D Total 25(Oh) <pending> finding Laboratory test 09/11/2017 Lyme Disease Serology Negative Negative 1 finding Laboratory test 09/11/2017 Erythrocyte Sed Rate 6 mm/Hr 0-14 finding C Reactive Protein 1.28 mg/L <8.01 CBC Auto Diff 09/11/2017 White Blood Count 6.4 10^3/uL 3.5-10.8 Red Blood Count 4.32 10^6/uL 4.00-5.40 Hemoglobin 14.0 g/dL 12.0-16.0 Hematocrit 41 % 35-47 Mean Corpuscular Volume 94 fL 80-97 Mean Corpuscular Hemoglobin 32 pg High 27-31 Mean Corpuscular HGB Conc 34 g/dL 31-36 Red Cell Distribution Width 12 % 10.5-15 Platelet Count 205 10^3/uL 150-450 Mean Platelet Volume 8.2 um3 7.4-10.4 Abs Neutrophils 4.8 10^3/uL 1.5-7.7 Abs Lymphocytes 1.0 10^3/uL 1.0-4.8 Abs Monocytes 0.5 10^3/uL 0-0.8 Abs Eosinophils 0.1 10^3/uL 0-0.6 Abs Basophils 0 10^3/uL 0-0.2 Abs Nucleated RBC 0 10^3/uL Granulocyte % 75.2 % 38-83 Lymphocyte % 15.2 % Low 25-47 Monocyte % 8.0 % High 0-7 Eosinophil % 1.2 % 0-6 Basophil % 0.4 % 0-2 Nucleated Red Blood Cells % 0 T&B Cell Lymphocyte 07/27/2017 Absolute CD45 Count 1.18 thou/mcL 0.82- 2.84 2 Evaluation Percent CD3 Cells (T Cells) 79 % 58-86 2 Percent CD19 Cells (B Cells) 0 % 6-24 2 % CD16+CD56 Cells (NK Cells) 19 % 4-28 2 Percent CD4 Cell ([place] Cell) 45 % 32-64 2 Percent CD8 Cells (Supp Cell) 34 % 13-40 2 Absolute CD3 Count (T Cells) 930 cells/L 550-2202 2 Absolute CD19 Count (B Cells) 0 cells/L 70-409 2 Absolute CD16+CD56 Count (NK) 223 cells/L 59-513 2 Absolute CD4 Count (Help Cell) 537 cells/L 365-1437 2 Absolute CD8 Count (Supp Cell) 401 cells/L 145-846 2 T-[place]/Suppressor Ratio 1.3 >=0.9 2 T B Cell Comment See Comment 2, 3 CBC Auto Diff 07/27/2017 White Blood Count 5.9 10^3/uL 3.5-10.8 2 Red Blood Count 4.04 10^6/uL 4.0-5.4 2 Hemoglobin 13.0 g/dL 12.0-16.0 2 Hematocrit 38 % 35-47 2 Mean Corpuscular Volume 94 fL 80-97 2 Mean Corpuscular Hemoglobin 32 pg High 27-31 2 Mean Corpuscular HGB Conc 34 g/dL 31-36 2 Red Cell Distribution Width 12 % 10.5-15 2 Platelet Count 239 10^3/uL 150-450 2 Mean Platelet Volume 7.9 um3 7.4-10.4 2 Abs Neutrophils 4.1 10^3/uL 1.5-7.7 2 Abs Lymphocytes 1.2 10^3/uL 1.0-4.8 2 Abs Monocytes 0.5 10^3/uL 0-0.8 2 Abs Eosinophils 0.1 10^3/uL 0-0.6 2 Abs Basophils 0 10^3/uL 0-0.2 2 Abs Nucleated RBC 0 10^3/uL 2 Granulocyte % 69.4 % 38-83 2 Lymphocyte % 20.6 % Low 25-47 2 Monocyte % 8.1 % High 0-7 2 Eosinophil % 1.6 % 0-6 2 Basophil % 0.3 % 0-2 2 Nucleated Red Blood Cells % 0.1 2 Comp Metabolic Panel 07/27/2017 Sodium 139 mmol/L 139-145 2 Potassium 4.0 mmol/L 3.5-5.0 2 Chloride 107 mmol/L 101-111 2 Co2 Carbon Dioxide 27 mmol/L 22-32 2 Anion Gap 5 mmol/L 2-11 2 Glucose 91 mg/dL 70-100 2 Blood Urea Nitrogen 19 mg/dL 6-24 2 Creatinine 0.77 mg/dL 0.51-0.95 2 BUN/Creatinine Ratio 24.7 High 8-20 2 Calcium 8.5 mg/dL Low 8.6-10.3 2 Total Protein 6.3 g/dL Low 6.4-8.9 2 Albumin 4.2 g/dL 3.2-5.2 2 Globulin 2.1 g/dL 2-4 2 Albumin/Globulin Ratio 2.0 1-3 2 Total Bilirubin 0.40 mg/dL 0.2-1.0 2 Alkaline Phosphatase 36 U/L 34-104 2 Alt 16 U/L 7-52 2 Ast 15 U/L 13-39 2 Egfr Non- 80.4 >60 2 Egfr 103.3 >60 2, 4 Poc Urinalysis 07/24/2017 Poc Glucose, Urine Negative Negative Poc Bilirubin, Urine Negative Negative Poc Ketone, Urine Negative Negative Poc Specific Alex, Urine <=1.005 Low 1.010-1.030 Poc Blood, Urine Negative Negative Poc pH, Urine 6.0 5-9 Poc Protein, Urine Negative Negative Poc Urobilinogen, Urine 0.2 Negative Poc Nitrite, Urine Negative Negative Poc Leukocytes, Urine Negative Negative Poc Color, Urine Yellow Poc Clarity, Urine Clear 5 Urine Culture And 07/24/2017 Urine Culture SEE RESULT BELOW 6, 7 Sensitivities Laboratory test finding 06/09/2017 Surgical Pathology SEE RESULT BELOW 8 Urine Culture And 01/25/2017 Urine Culture SEE RESULT BELOW 9 Sensitivities Ua Routine 01/25/2017 Ua Specific Alex 1.015 Ua PH 6 Ua Color yellow Ua Appera clear Ua WBC trace Ua Protein trace Ua Glucose normal Ua Ketones normal Ua Bilirubin neg Ua Urobilinogen neg Ua Nitrite neg Ua Occult Blood large Ua Routine 01/20/2017 Ua Specific Alex 1020 Ua PH 5 Ua Color yellow Ua Appera clear Ua WBC trace Ua Protein neg Ua Glucose neg Ua Ketones neg Ua Bilirubin neg Ua Urobilinogen neg Ua Nitrite neg Ua Occult Blood neg Urine Culture And 01/17/2017 Urine Culture SEE RESULT BELOW 10, 11 Sensitivities Poc Urinalysis 01/17/2017 Poc Glucose, Negative Negative Urine Poc Bilirubin, Urine Negative Negative Poc Ketone, Urine Negative Negative Poc Specific Alex, Urine <=1.005 Low 1.010-1.030 Poc Blood, Urine Trace-intact Negative Poc pH, Urine 5.5 5-9 Poc Protein, Urine Negative Negative Poc Urobilinogen, Urine 0.2 Negative Poc Nitrite, Urine Negative Negative Poc Leukocytes, Urine Negative Negative Poc Color, Urine Yellow Poc Clarity, Urine Clear 12 Urine Culture And 01/07/2017 Urine Culture SEE RESULT BELOW 13, 14 Sensitivities Comp Metabolic Panel 09/24/2016 Sodium 138 mmol/L 133-145 Potassium 4.5 mmol/L 3.5-5.0 Chloride 105 mmol/L 101-111 Co2 Carbon Dioxide 29 mmol/L 22-32 Anion Gap 4 mmol/L 2-11 Glucose 88 mg/dL 70-100 Blood Urea Nitrogen 12 mg/dL 6-24 Creatinine 0.62 mg/dL 0.51-0.95 BUN/Creatinine Ratio 19.4 8-20 Calcium 9.2 mg/dL 8.6-10.3 Total Protein 6.5 g/dL 6.4-8.9 Albumin 4.2 g/dL 3.2-5.2 Globulin 2.3 g/dL 2-4 Albumin/Globulin Ratio 1.8 1-3 Total Bilirubin 0.50 mg/dL 0.2-1.0 Alkaline Phosphatase 39 U/L 34-104 Alt 27 U/L 7-52 Ast 25 U/L 13-39 Egfr Non- 103.6 >60 Egfr 133.3 >60 15 Laboratory test finding 09/24/2016 Hepatitis B Surface Ag Nonreactive Nonreactive Hepatitis C Antibody Nonreactive Nonreactive Quantiferon Gold TB 09/24/2016 M tuberculosis by Quantiferon Negative Negative 16 TB Ag minus Nil Result 0 IU/mL TB Mitogen minus Nil Result > 10.00 IU/mL TB Nil Result 0.04 IU/mL 17 Varicella Zoster Igg AB 09/24/2016 Varicella-Zoster IgG Antibody Positive 18 Varicella IgG Antibody Index 3.7 19 Laboratory test finding 09/24/2016 Immunoglobulin G (Igg) 934 mg/dL 767 - 1590 20 Immunoglobulin M (Igm) 202 mg/dL 37 - 286 21 Immunoglobulin A (Iga) 55 mg/dL 61 - 356 22 T&B Cell Lymphocyte 09/24/2016 Absolute CD45 Count 0.55 thou/mcL 0.82- 2.84 Evaluation Percent CD3 Cells (T Cells) 55 % 58-86 Percent CD19 Cells (B Cells) 5 % 6-24 % CD16+CD56 Cells (NK Cells) 37 % 4-28 Percent CD4 Cell ([place] Cell) 21 % 32-64 Percent CD8 Cells (Supp Cell) 35 % 13-40 Absolute CD3 Count (T Cells) 302 cells/L 550-2202 Absolute CD19 Count (B Cells) 27 cells/L 70-409 Absolute CD16+CD56 Count (NK) 205 cells/L 59-513 Absolute CD4 Count (Help Cell) 114 cells/L 365-1437 Absolute CD8 Count (Supp Cell) 191 cells/L 145-846 T-[place]/Suppressor Ratio 0.6 >=0.9 T B Cell Comment See Comment 23 Ua Routine 03/27/2016 Ua Specific Alex 1.020 Ua PH 5 Ua Color yellow Ua Appera clear Ua WBC trace Ua Protein trace Ua Glucose normal Ua Ketones neg Ua Bilirubin neg Ua Urobilinogen normal Ua Nitrite neg Ua Occult Blood neg Laboratory test 03/23/2016 (HCG) Negative Negative 24 finding Urine Laboratory test 03/23/2016 Surgical Pathology SEE RESULT BELOW 25 finding Comp Metabolic Panel 08/25/2015 Sodium 138 mmol/L 133-145 Potassium 3.7 mmol/L 3.5-5.0 Chloride 105 mmol/L 101-111 Co2 Carbon Dioxide 27 mmol/L 22-32 Anion Gap 6 mmol/L 2-11 Glucose 85 mg/dL 70-100 Blood Urea Nitrogen 12 mg/dL 6-24 Creatinine 0.65 mg/dL 0.51-0.95 BUN/Creatinine Ratio 18.5 8-20 Calcium 9.4 mg/dL 8.6-10.3 Total Protein 7.2 g/dL 6.4-8.9 Albumin 4.7 g/dL 3.2-5.2 Globulin 2.5 g/dL 2-4 Albumin/Globulin Ratio 1.9 1-3 Total Bilirubin 0.40 mg/dL 0.2-1.0 Alkaline Phosphatase 43 U/L 34-104 Alt 44 U/L 7-52 Ast 32 U/L 13-39 Egfr Non- 98.6 >60 Egfr 126.8 >60 26 Laboratory test finding 08/25/2015 Magnesium 1.9 mg/dL 1.9-2.7 Lipase 31 U/L 11.0-82.0 Urinalysis Profile 08/25/2015 Urine Color Yellow Urine Appearance Cloudy Urine Specific Alex 1.021 1.010-1.030 Urine pH 7.0 5-9 Urine Urobilinogen Negative Negative Urine Ketones Negative Negative Urine Protein Negative Negative Urine Leukocytes Negative Negative Urine Blood Negative Negative Urine Nitrite Negative Negative Urine Bilirubin Negative Negative Urine Glucose Negative Negative CBC Auto Diff 08/25/2015 White Blood Count 5.0 10^3/uL 3.5-10.8 Red Blood Count 4.40 10^6/uL 4.0-5.4 Hemoglobin 13.4 g/dL 12.0-16.0 Hematocrit 40 % 35-47 Mean Corpuscular Volume 91 fL 80-97 Mean Corpuscular Hemoglobin 31 pg 27-31 Mean Corpuscular HGB Conc 33 g/dL 31-36 Red Cell Distribution Width 13 % 10.5-15 Platelet Count 196 10^3/uL 150-450 Mean Platelet Volume 8 um3 7.4-10.4 Abs Neutrophils 3.9 10^3/uL 1.5-7.7 Abs Lymphocytes 0.5 10^3/uL Low 1.0-4.8 Abs Monocytes 0.6 10^3/uL 0-0.8 Abs Eosinophils 0 10^3/uL 0-0.6 Abs Basophils 0 10^3/uL 0-0.2 Abs Nucleated RBC 0 10^3/uL Granulocyte % 77.0 % 38-83 Lymphocyte % 10.7 % Low 25-47 Monocyte % 11.4 % High 1-9 Eosinophil % 0.6 % 0-6 Basophil % 0.3 % 0-2 Nucleated Red Blood Cells % 0 Laboratory test 08/25/2015 Lactic Acid 0.7 mmol/L 0.5-2.0 27 finding Laboratory test 07/25/2015 Culture Throat SEE RESULT BELOW 28 finding Laboratory test 07/25/2015 Rapid Group A Strep negative finding Laboratory test 03/12/2015 Erythrocyte Sed Rate 4 mm/Hr 0-14 finding C Reactive Protein < 1.00 mg/L < 5.00 29 Rheumatoid Factor <15 IU/mL <15 30 Creatine Kinase(CK) 50 U/L 10-223 Lyme Disease Serology Negative Negative 31 Vitamin B12 728 pg/mL 180-914 32 CBC Auto Diff 03/12/2015 White Blood Count 3.5 10^3/uL 3.5-10.8 Red Blood Count 4.73 10^6/uL 4.0-5.4 Hemoglobin 14.5 g/dL 12.0-16.0 Hematocrit 44 % 35-47 Mean Corpuscular Volume 94 fL 80-97 Mean Corpuscular Hemoglobin 31 pg 27-31 Mean Corpuscular HGB Conc 33 g/dL 31-36 Red Cell Distribution Width 13 % 10.5-15 Platelet Count 225 10^3/uL 150-450 Mean Platelet Volume 8 um3 7.4-10.4 Abs Neutrophils 2.3 10^3/uL 1.5-7.7 Abs Lymphocytes 0.6 10^3/uL Low 1.0-4.8 Abs Monocytes 0.5 10^3/uL 0-0.8 Abs Eosinophils 0 10^3/uL 0-0.6 Abs Basophils 0 10^3/uL 0-0.2 Abs Nucleated RBC 0 10^3/uL Granulocyte % 65.8 % 38-83 Lymphocyte % 18.4 % Low 25-47 Monocyte % 14.2 % High 1-9 Eosinophil % 1.1 % 0-6 Basophil % 0.5 % 0-2 Nucleated Red Blood Cells % 0 Liver Function Panel 03/12/2015 Total Protein 6.8 g/dL 6.4-8.9 Albumin 4.8 g/dL 3.2-5.2 Globulin 2.0 g/dL 2-4 Albumin/Globulin Ratio 2.4 1-3 Total Bilirubin 0.50 mg/dL 0.2-1.0 Direct Bilirubin 0.10 mg/dL 0.03-0.18 Indirect Bilirubin 0.4 mg/dL 0.3-1.0 Alkaline Phosphatase 38 U/L 34-104 Alt 64 U/L High 7-52 Ast 53 U/L High 13-39 CBC Auto Diff 12/07/2014 White Blood Count 3.3 10^3/uL Low 4.8-10.8 Red Blood Count 4.61 10^6/uL 4.0-5.4 Hemoglobin 14.3 g/dL 12.0-16.0 Hematocrit 43 % 35-47 Mean Corpuscular Volume 94 fL 80-97 Mean Corpuscular Hemoglobin 31 pg 27-31 Mean Corpuscular HGB Conc 33 g/dL 31-36 Red Cell Distribution Width 12 % 10.5-15 Platelet Count 196 10^3/uL 150-450 Mean Platelet Volume 9 um3 7.4-10.4 Abs Neutrophils 2.3 10^3/uL 1.5-7.7 Abs Lymphocytes 0.5 10^3/uL Low 1.0-4.8 Abs Monocytes 0.4 10^3/uL 0-0.8 Abs Eosinophils 0 10^3/uL 0-0.6 Abs Basophils 0 10^3/uL 0-0.2 Abs Nucleated RBC 0.01 10^3/uL Granulocyte % 68.7 % 38-83 Lymphocyte % 16.2 % Low 25-47 Monocyte % 13.3 % High 1-9 Eosinophil % 1.4 % 0-6 Basophil % 0.4 % 0-2 Nucleated Red Blood Cells % 0.2 Liver Function Panel 12/07/2014 Total Protein 6.7 g/dL 6.4-8.9 Albumin 4.7 g/dL 3.2-5.2 Globulin 2.0 g/dL 2-4 Albumin/Globulin Ratio 2.4 1-3 Total Bilirubin 0.50 mg/dL 0.2-1.0 Direct Bilirubin 0.10 mg/dL 0.03-0.18 Indirect Bilirubin 0.4 mg/dL 0.3-1.0 Alkaline Phosphatase 33 U/L Low 34-104 Alt 29 U/L 7-52 Ast 20 U/L 13-39 Lipid Profile (Trig/Chol/HDL) 10/09/2014 Triglycerides 88 mg/dL 33, 34 Cholesterol 158 mg/dL 33, 35 HDL Cholesterol 47.9 mg/dL 33, 36 LDL Cholesterol 93 mg/dL 33, 37 Laboratory test 10/09/2014 Glucose 89 mg/dL 70-100 33, 38 finding Laboratory test 07/08/2014 Urine Culture SEE RESULT BELOW 39 finding Laboratory test 07/08/2014 Urine Culture SEE RESULT BELOW 40 finding Ua Routine 04/04/2014 Ua Specific Alex 1.020 Ua PH 5.0 Ua Color yellow Ua Appera clear Ua WBC neg Ua Protein neg Ua Glucose neg Ua Ketones trace Ua Bilirubin small Ua Urobilinogen neg Ua Nitrite neg Ua Occult Blood neg CBC Auto Diff 03/30/2014 White Blood Count 3.3 10^3/uL Low 4.8-10.8 Red Blood Count 4.43 10^6/uL 4.0-5.4 Hemoglobin 13.6 g/dL 12.0-16.0 Hematocrit 41 % 35-47 Mean Corpuscular Volume 92 fL 80-97 Mean Corpuscular Hemoglobin 31 pg 27-31 Mean Corpuscular HGB Conc 34 g/dL 31-36 Red Cell Distribution Width 13 % 10.5-15 Platelet Count 193 10^3/uL 150-450 Mean Platelet Volume 8 um3 7.4-10.4 Abs Neutrophils 2.2 10^3/uL 1.5-7.7 Abs Lymphocytes 0.6 10^3/uL Low 1.0-4.8 Abs Monocytes 0.5 10^3/uL 0-0.8 Abs Eosinophils 0 10^3/uL 0-0.6 Abs Basophils 0 10^3/uL 0-0.2 Abs Nucleated RBC 0 10^3/uL Granulocyte % 66.1 % 38-83 Lymphocyte % 17.0 % Low 25-47 Monocyte % 15.0 % High 1-9 Eosinophil % 1.3 % 0-6 Basophil % 0.6 % 0-2 Nucleated Red Blood Cells % 0.1 Comp Metabolic Panel 03/30/2014 Sodium 136 mmol/L 133-145 Potassium 4.3 mmol/L 3.5-5.0 Chloride 104 mmol/L 101-111 Co2 Carbon Dioxide 25 mmol/L 22-32 Anion Gap 7 mmol/L 2-11 Glucose 85 mg/dL 70-100 Blood Urea Nitrogen 20 mg/dL 6-24 Creatinine 0.76 mg/dL 0.51-0.95 BUN/Creatinine Ratio 26.3 High 8-20 Calcium 9.2 mg/dL 8.6-10.3 Total Protein 7.0 g/dL 6.4-8.9 Albumin 4.7 g/dL 3.2-5.2 Globulin 2.3 g/dL 2-4 Albumin/Globulin Ratio 2.0 1-3 Total Bilirubin 0.50 mg/dL 0.2-1.0 Alkaline Phosphatase 38 U/L 34-104 Alt 46 U/L 7-52 Ast 30 U/L 13-39 Egfr Non- 82.7 >60 Egfr 106.3 >60 41 Iron & Iron Binding Capacity 03/30/2014 Iron 107 g/dL 50-212 Unsaturated Iron Binding 183 g/dL Total Iron Binding Capacity 290 g/dL 250-450 % Iron Saturation 37 % 15-55 Laboratory test finding 03/30/2014 Ferritin 60.6 ng/mL 11-307 Vitamin B12 528 pg/mL 180-914 42 Folate > 20.00 ng/mL >3.99 Vitamin D, 25 Hydroxy 03/30/2014 25-Hydroxy Vitamin D2 <4.0 ng/mL 25-Hydroxy Vitamin D3 48 ng/mL 25-Hydroxy Vitamin D Total 48 ng/mL 43 Laboratory test finding 03/30/2014 Blue Mussel Allergen IgE <0.35 kU/L 44 Clam Allergen IgE <0.35 kU/L 45 Codfish Allergen IgE <0.35 kU/L 46 Crab Allergen IgE <0.35 kU/L 47 Lobster Allergen IgE <0.35 kU/L 48 Oyster Allergen IgE <0.35 kU/L 49 Aromas Allergen IgE <0.35 kU/L 50 Scallop Allergen IgE <0.35 kU/L 51 Shrimp Allergen IgE <0.35 kU/L 52 Urine Culture And Sensitivities 03/28/2014 Urine Culture (SEE NOTE) 53 Ua Routine 03/28/2014 Ua Specific Alex 1.005 Ua PH 5.0 Ua Color yellow Ua Appera clear Ua WBC neg Ua Protein neg Ua Glucose neg Ua Ketones neg Ua Bilirubin small Ua Urobilinogen neg Ua Nitrite positive Ua Occult Blood neg Urinalysis Profile 03/23/2014 Urine Color Red Urine Appearance Cloudy Urine Specific Alex 1.006 Low 1.010-1.030 Urine pH 6.0 5-9 Urine Urobilinogen Negative Negative Urine Ketones Negative Negative Urine Protein 2+(100 mg/dL) Negative Urine Leukocytes 2+ Negative Urine Blood 3+ Negative Urine Nitrite Positive Negative Urine Bilirubin Negative Negative Urine Glucose 1+(50 mg/dL) Negative Urine White Blood Cell 3+(>20/hpf) Absent Urine Red Blood Cell 3+(>10/hpf) Absent Urine Bacteria 1+ Absent Urine Squamous Epithelial Cell Present Absent Urine Culture And Sensitivities 03/23/2014 Urine Culture (SEE NOTE) 54 Liver Function Panel 03/09/2014 Total Protein 6.7 g/dL 6.4-8.9 Albumin 4.5 g/dL 3.2-5.2 Globulin 2.2 g/dL 2-4 Albumin/Globulin Ratio 2.0 1-3 Total Bilirubin 0.70 mg/dL 0.2-1.0 Direct Bilirubin 0.10 mg/dL 0.03-0.18 Indirect Bilirubin 0.6 mg/dL 0.3-1.0 Alkaline Phosphatase 34 U/L 34-104 Alt 29 U/L 7-52 Ast 23 U/L 13-39 CBC Auto Diff 03/09/2014 White Blood Count 3.2 10^3/uL Low 4.8-10.8 Red Blood Count 4.73 10^6/uL 4.0-5.4 Hemoglobin 14.3 g/dL 12.0-16.0 Hematocrit 43 % 35-47 Mean Corpuscular Volume 90 fL 80-97 Mean Corpuscular Hemoglobin 30 pg 27-31 Mean Corpuscular HGB Conc 33 g/dL 31-36 Red Cell Distribution Width 12 % 10.5-15 Platelet Count 241 10^3/uL 150-450 Mean Platelet Volume 8 um3 7.4-10.4 Abs Neutrophils 2.1 10^3/uL 1.5-7.7 Abs Lymphocytes 0.7 10^3/uL Low 1.0-4.8 Abs Monocytes 0.4 10^3/uL 0-0.8 Abs Eosinophils 0 10^3/uL 0-0.6 Abs Basophils 0 10^3/uL 0-0.2 Abs Nucleated RBC 0 10^3/uL Granulocyte % 65.1 % 38-83 Lymphocyte % 21.5 % Low 25-47 Monocyte % 11.9 % High 1-9 Eosinophil % 1.1 % 0-6 Basophil % 0.4 % 0-2 Nucleated Red Blood Cells % 0 Liver Function Panel 01/16/2014 Total Protein 6.4 g/dL 6.4-8.9 Albumin 4.2 g/dL 3.2-5.2 Globulin 2.2 g/dL 2-4 Albumin/Globulin Ratio 1.9 1-3 Total Bilirubin 0.60 mg/dL 0.2-1.0 Direct Bilirubin 0.10 mg/dL 0.03-0.18 Indirect Bilirubin 0.5 mg/dL 0.3-1.0 Alkaline Phosphatase 29 U/L Low 34-104 Alt 16 U/L 7-52 Ast 16 U/L 13-39 CBC Auto Diff 01/16/2014 White Blood Count 3.2 10^3/uL Low 4.8-10.8 Red Blood Count 4.49 10^6/uL 4.0-5.4 Hemoglobin 13.6 g/dL 12.0-16.0 Hematocrit 40 % 35-47 Mean Corpuscular Volume 90 fL 80-97 Mean Corpuscular Hemoglobin 30 pg 27-31 Mean Corpuscular HGB Conc 34 g/dL 31-36 Red Cell Distribution Width 12 % 10.5-15 Platelet Count 191 10^3/uL 150-450 Mean Platelet Volume 8 um3 7.4-10.4 Abs Neutrophils 2.1 10^3/uL 1.5-7.7 Abs Lymphocytes 0.6 10^3/uL Low 1.0-4.8 Abs Monocytes 0.4 10^3/uL 0-0.8 Abs Eosinophils 0.1 10^3/uL 0-0.6 Abs Basophils 0 10^3/uL 0-0.2 Abs Nucleated RBC 0 10^3/uL Granulocyte % 65.5 % 38-83 Lymphocyte % 19.4 % Low 25-47 Monocyte % 12.6 % High 1-9 Eosinophil % 2.1 % 0-6 Basophil % 0.4 % 0-2 Nucleated Red Blood Cells % 0 Laboratory test finding 12/08/2013 Ferritin 21.8 ng/mL 11-307 Vitamin B12 650 pg/mL 180-914 55 Folate > 20.00 ng/mL >3.99 Vitamin D, 25 Hydroxy 12/08/2013 25-Hydroxy Vitamin D2 <4.0 ng/mL 25-Hydroxy Vitamin D3 61 ng/mL 25-Hydroxy Vitamin D Total 61 ng/mL 56 Iron & Iron Binding Capacity 12/08/2013 Iron 86 g/dL 50-212 Unsaturated Iron Binding 188 g/dL Total Iron Binding Capacity 274 g/dL 250-450 % Iron Saturation 31 % 15-55 Laboratory test finding 12/08/2013 Prealbumin 23 mg/dL 18-38 Comp Metabolic Panel 12/08/2013 Sodium 139 mmol/L 133-145 Potassium 4.2 mmol/L 3.7-5.6 Chloride 110 mmol/L 101-111 Co2 Carbon Dioxide 22 mmol/L 22-32 Anion Gap 7 mmol/L 2-11 Glucose 79 mg/dL 70-100 Blood Urea Nitrogen 10 mg/dL 6-24 Creatinine 0.64 mg/dL 0.51-0.95 BUN/Creatinine Ratio 15.6 8-20 Calcium 9.1 mg/dL 8.6-10.3 Total Protein 7.2 g/dL 6.4-8.9 Albumin 4.5 g/dL 3.2-5.2 Globulin 2.7 g/dL 2-4 Albumin/Globulin Ratio 1.7 1-3 Total Bilirubin 0.50 mg/dL 0.2-1.0 Alkaline Phosphatase 32 U/L Low 34-104 Alt 14 U/L 7-52 Ast 17 U/L 13-39 Egfr Non- 101.3 >60 Egfr 130.2 >60 57 CBC Auto Diff 12/08/2013 White Blood Count 6.4 10^3/uL 4.8-10.8 Red Blood Count 4.53 10^6/uL 4.0-5.4 Hemoglobin 14.0 g/dL 12.0-16.0 Hematocrit 41 % 35-47 Mean Corpuscular Volume 90 fL 80-97 Mean Corpuscular Hemoglobin 31 pg 27-31 Mean Corpuscular HGB Conc 34 g/dL 31-36 Red Cell Distribution Width 12 % 10.5-15 Platelet Count 199 10^3/uL 150-450 Mean Platelet Volume 8 um3 7.4-10.4 Abs Neutrophils 3.5 10^3/uL 1.5-7.7 Abs Lymphocytes 2.4 10^3/uL 1.0-4.8 Abs Monocytes 0.5 10^3/uL 0-0.8 Abs Eosinophils 0.1 10^3/uL 0-0.6 Abs Basophils 0 10^3/uL 0-0.2 Abs Nucleated RBC 0 10^3/uL Granulocyte % 54.0 % 38-83 Lymphocyte % 36.7 % 25-47 Monocyte % 7.6 % 1-9 Eosinophil % 1.2 % 0-6 Basophil % 0.5 % 0-2 Nucleated Red Blood Cells % 0 Cytology Non-[employer] 10/26/2013 [facility] RUN DATE: 10/26/ <SEE NOTE> 58 Laboratory test finding 10/13/2013 Free T4 0.91 ng/mL 0.61-1.12 Total T3 0.99 ng/mL 0.87-1.78 Lipid Profile (Trig/Chol/HDL) 09/29/2013 Triglycerides 50 mg/dL 33, 59 Cholesterol 149 mg/dL 33, 60 HDL Cholesterol 48.2 mg/dL 33, 61 LDL Cholesterol 91 mg/dL 33, 62 Laboratory test finding 09/11/2013 TSH (Thyroid Stimulating 1.09 IU/mL 0.34-5.60 Horm) Liver Function Panel 07/25/2013 Total Protein 7.2 g/dL 6.4-8.9 Albumin 4.6 g/dL 3.2-5.2 Globulin 2.6 g/dL 2-4 Albumin/Globulin Ratio 1.8 1-3 Total Bilirubin 0.40 mg/dL 0.2-1.0 Direct Bilirubin 0.10 mg/dL 0.03-0.18 Indirect Bilirubin 0.3 mg/dL 0.3-1.0 Alkaline Phosphatase 38 U/L 34-104 Alt 16 U/L 7-52 Ast 17 U/L 13-39 Varicella Zoster Igg AB 07/18/2013 Varicella-Zoster IgG Antibody Positive 63 Varicella IgG Antibody Index 4.1 64 Hepatitis Acute Panel 07/18/2013 Hepatitis B Surface Nonreactive Nonreactive Antigen Hepatitis B Core IgM Nonreactive Nonreactive Hepatitis A AB IgM Nonreactive Nonreactive Hepatitis C Antibody Nonreactive Nonreactive CBC Auto Diff 07/18/2013 White Blood Count 5.6 10^3/uL 4.8-10.8 Red Blood Count 4.11 10^6/uL 4.0-5.4 Hemoglobin 13.1 g/dL 12.0-16.0 Hematocrit 39 % 35-47 Mean Corpuscular Volume 94 fL 80-97 Mean Corpuscular Hemoglobin 32 pg High 27-31 Mean Corpuscular HGB Conc 34 g/dL 31-36 Red Cell Distribution Width 13 % 10.5-15 Platelet Count 176 10^3/uL 150-450 Mean Platelet Volume 8 um3 7.4-10.4 Abs Neutrophils 2.9 10^3/uL 1.5-7.7 Abs Lymphocytes 2.2 10^3/uL 1.0-4.8 Abs Monocytes 0.4 10^3/uL 0-0.8 Abs Eosinophils 0.1 10^3/uL 0-0.6 Abs Basophils 0 10^3/uL 0-0.2 Abs Nucleated RBC 0 10^3/uL Granulocyte % 51.1 % 38-83 Lymphocyte % 38.9 % 25-47 Monocyte % 7.8 % 1-9 Eosinophil % 1.5 % 0-6 Basophil % 0.7 % 0-2 Nucleated Red Blood Cells % 0 Rubeola Measles Igg AB 06/17/2013 [place] (Measles) IgG Antibody Positive 65 [place] IgG Antibody Index 6.5 66 Laboratory test finding 06/17/2013 [place] (Measles) IgM Negative Negative 67 Antibody CBC Auto Diff 05/29/2013 White Blood Count 9.7 10^3/uL 4.8-10.8 Red Blood Count 4.73 10^6/uL 4.0-5.4 Hemoglobin 14.7 g/dL 12.0-16.0 Hematocrit 43 % 35-47 Mean Corpuscular Volume 90 fL 80-97 Mean Corpuscular Hemoglobin 31 pg 27-31 Mean Corpuscular HGB Conc 35 g/dL 31-36 Red Cell Distribution Width 14 % 10.5-15 Platelet Count 195 10^3/uL 150-450 Mean Platelet Volume 8 um3 7.4-10.4 Abs Neutrophils 6.6 10^3/uL 1.5-7.7 Abs Lymphocytes 2.1 10^3/uL 1.0-4.8 Abs Monocytes 0.8 10^3/uL 0-0.8 Abs Eosinophils 0.1 10^3/uL 0-0.6 Abs Basophils 0.1 10^3/uL 0-0.2 Abs Nucleated RBC 0.01 10^3/uL Granulocyte % 68.0 % 38-83 Lymphocyte % 22.0 % Low 25-47 Monocyte % 8.0 % 1-9 Eosinophil % 1.2 % 0-6 Basophil % 0.8 % 0-2 Nucleated Red Blood Cells % 0.1 Vitamin D, 25 Hydroxy 05/29/2013 25-Hydroxy Vitamin D2 <4.0 ng/mL 25-Hydroxy Vitamin D3 64 ng/mL 25-Hydroxy Vitamin D Total 64 ng/mL 68 Comp Metabolic Panel 05/29/2013 Sodium 139 mmol/L 133-145 Potassium 4.3 mmol/L 3.7-5.6 Chloride 108 mmol/L 101-111 Co2 Carbon Dioxide 24 mmol/L 22-32 Anion Gap 7 mmol/L 2-11 Glucose 91 mg/dL 70-100 Blood Urea Nitrogen 14 mg/dL 6-24 Creatinine 0.68 mg/dL 0.51-0.95 BUN/Creatinine Ratio 20.6 High 8-20 Calcium 9.6 mg/dL 8.6-10.3 Total Protein 7.4 g/dL 6.4-8.9 Albumin 5.0 g/dL 3.2-5.2 Globulin 2.4 g/dL 2-4 Albumin/Globulin Ratio 2.1 1-3 Total Bilirubin 0.40 mg/dL 0.2-1.0 Alkaline Phosphatase 45 U/L 34-104 Alt 18 U/L 7-52 Ast 19 U/L 13-39 Egfr Non- 94.4 >60 Egfr 121.4 >60 69 Laboratory test finding 05/29/2013 Prealbumin 21 mg/dL 18-38 GGTP 14 U/L 9-64.0 Iron & Iron Binding Capacity 05/29/2013 Iron 194 g/dL 50-212 Unsaturated Iron Binding 124 g/dL Total Iron Binding Capacity 318 g/dL 250-450 % Iron Saturation 61 % High 15-55 Laboratory test finding 05/29/2013 Ferritin 26.8 ng/mL 11-307 Throat-Beta Strept 04/23/2013 Throat Beta Strep Culture (SEE NOTE) 70 Vitamin D, 25 Hydroxy 01/31/2013 25-Hydroxy Vitamin D2 <4.0 ng/mL 25-Hydroxy Vitamin D3 58 ng/mL 25-Hydroxy Vitamin D Total 58 ng/mL 71 Comp Metabolic Panel 01/31/2013 Sodium 138 mmol/L 133-145 Potassium 4.2 mmol/L 3.5-5.0 Chloride 106 mmol/L 101-111 Co2 Carbon Dioxide 25.0 mmol/L 22-32 Anion Gap 7.0 mmol/L 2-11 Glucose 91 mg/dL 70-100 Blood Urea Nitrogen 13 mg/dL 6-24 Creatinine 0.60 mg/dL 0.50-1.40 BUN/Creatinine Ratio 21.7 High 8-20 Calcium 8.9 mg/dL 8.1-9.9 Total Protein 6.1 g/dL Low 6.2-8.1 Albumin 4.2 g/dL 3.6-5.4 Globulin 1.9 g/dL Low 2-4 Albumin/Globulin Ratio 2.2 1-3 Total Bilirubin 0.8 mg/dL 0.4-1.5 Alkaline Phosphatase 35 U/L 30-110 Alt 24 U/L 14-54 Ast 22 U/L 12-42 Egfr Non- 109.6 >60 Egfr 141.0 >60 72 Iron & Iron Binding Capacity 01/31/2013 Iron 104 g/dL 28-170 Unsaturated Iron Binding 166 g/dL Total Iron Binding Capacity 270 g/dL 250-450 % Iron Saturation 39 % 15-55 Laboratory test finding 01/31/2013 Ferritin 19 ng/mL 11-307 CBC Auto Diff 01/31/2013 White Blood Count 5.9 10^3/uL 4.8-10.8 Red Blood Count 4.40 10^6/uL 4.0-5.4 Hemoglobin 13.5 g/dL 12.0-16.0 Hematocrit 40 % 35-47 Mean Corpuscular Volume 91 fL 80-97 Mean Corpuscular Hemoglobin 31 pg 27-31 Mean Corpuscular HGB Conc 34 g/dL 31-36 Red Cell Distribution Width 12 % 10.5-15 Platelet Count 212 10^3/uL 150-450 Mean Platelet Volume 9 um3 7.4-10.4 Abs Neutrophils 2.9 10^3/uL 1.5-7.7 Abs Lymphocytes 2.3 10^3/uL 1.0-4.8 Abs Monocytes 0.5 10^3/uL 0-0.8 Abs Eosinophils 0.1 10^3/uL 0-0.6 Abs Basophils 0 10^3/uL 0-0.2 Abs Nucleated RBC 0 10^3/uL Granulocyte % 49.6 % 38-83 Lymphocyte % 39.5 % 25-47 Monocyte % 8.0 % 1-9 Eosinophil % 2.1 % 0-6 Basophil % 0.8 % 0-2 Nucleated Red Blood Cells % 0.1 Comp Metabolic Panel 09/12/2012 Sodium 141 mmol/L 133-145 Potassium 3.8 mmol/L 3.5-5.0 Chloride 108 mmol/L 101-111 Co2 Carbon Dioxide 26.0 mmol/L 22-32 Anion Gap 7.0 mmol/L 2-11 Glucose 88 mg/dL 70-100 Blood Urea Nitrogen 12 mg/dL 6-24 Creatinine 0.70 mg/dL 0.50-1.40 BUN/Creatinine Ratio 17.1 8-20 Calcium 9.3 mg/dL 8.1-9.9 Total Protein 6.7 g/dL 6.2-8.1 Albumin 4.4 g/dL 3.6-5.4 Globulin 2.3 g/dL 2-4 Albumin/Globulin Ratio 1.9 1-3 Total Bilirubin 0.8 mg/dL 0.4-1.5 Alkaline Phosphatase 41 U/L 30-110 Alt 18 U/L 14-54 Ast 23 U/L 12-42 Egfr Non- 91.8 >60 Egfr 118.0 >60 73 Laboratory test finding 09/12/2012 Ferritin 19 ng/mL 11-307 Vitamin D, 25 Hydroxy 09/12/2012 25-Hydroxy Vitamin D2 <4.0 ng/mL 25-Hydroxy Vitamin D3 61 ng/mL 25-Hydroxy Vitamin D Total 61 ng/mL 74 Laboratory test finding 09/12/2012 Honey Bee Allergen IgE <0.35 kU/L 75 Soybean Allergen IgE <0.35 kU/L 76 White-Faced Hornet Allerg IgE <0.35 kU/L 77 Yellow Hornet Allergen IgE <0.35 kU/L 78 Yellow Jacket Allergen IgE <0.35 kU/L 79 Tryptase 4.8 ng/mL <11.5 80 Paper Wasp Allergen IgE <0.35 kU/L 81 CBC Auto Diff 07/06/2012 White Blood Count 5.2 10^3/uL 4.8-10.8 Red Blood Count 4.84 10^6/uL 4.0-5.4 Hemoglobin 15.2 g/dL 12.0-16.0 Hematocrit 45 % 35-47 Mean Corpuscular Volume 92 fL 80-97 Mean Corpuscular Hemoglobin 31 pg 27-31 Mean Corpuscular HGB Conc 34 g/dL 31-36 Red Cell Distribution Width 13 % 10.5-15 Platelet Count 153 10^3/uL 150-450 Mean Platelet Volume 9 um3 7.4-10.4 Abs Neutrophils 2.3 10^3/uL 1.5-7.7 Abs Lymphocytes 2.3 10^3/uL 1.0-4.8 Abs Monocytes 0.4 10^3/uL 0-0.8 Abs Eosinophils 0.1 10^3/uL 0-0.6 Abs Basophils 0 10^3/uL 0-0.2 Abs Nucleated RBC 0 10^3/uL Granulocyte % 44.8 % 38-83 Lymphocyte % 43.9 % 25-47 Monocyte % 8.2 % 1-9 Eosinophil % 2.5 % 0-6 Basophil % 0.6 % 0-2 Nucleated Red Blood Cells % 0 CBC Auto Diff 12/11/2011 White Blood Count 6.6 10^3/uL 4.8-10.8 Red Blood Count 4.36 10^6/uL 4.0-5.4 Hemoglobin 13.6 g/dL 12.0-16.0 Hematocrit 40 % 35-47 Mean Corpuscular Volume 92 fL 80-97 Mean Corpuscular Hemoglobin 31 pg 27-31 Mean Corpuscular HGB Conc 34 g/dL 31-36 Red Cell Distribution Width 13 % 10.5-15 Platelet Count 201 10^3/uL 150-450 Mean Platelet Volume 8 um3 7.4-10.4 Abs Neutrophils 3.5 10^3/uL 1.5-7.7 Abs Lymphocytes 2.5 10^3/uL 1.0-4.8 Abs Monocytes 0.5 10^3/uL 0-0.8 Abs Eosinophils 0.1 10^3/uL 0-0.6 Abs Basophils 0 10^3/uL 0-0.2 Abs Nucleated RBC 0 10^3/uL Granulocyte % 52.2 % 38-83 Lymphocyte % 37.5 % 25-47 Monocyte % 7.6 % 1-9 Eosinophil % 2.0 % 0-6 Basophil % 0.7 % 0-2 Nucleated Red Blood Cells % 0 Comp Metabolic Panel 12/11/2011 Sodium 138 mmol/L 133-145 Potassium 3.9 mmol/L 3.5-5.0 Chloride 108 mmol/L 101-111 Co2 Carbon Dioxide 24.0 mmol/L 22-32 Anion Gap 6.0 mmol/L 2-11 Glucose 91 mg/dL 70-100 Blood Urea Nitrogen 8 mg/dL 6-24 Creatinine 0.60 mg/dL 0.50-1.40 BUN/Creatinine Ratio 13.3 8-20 Calcium 9.0 mg/dL 8.1-9.9 Total Protein 6.2 GM/DL 6.2-8.1 Albumin 4.1 GM/DL 3.6-5.4 Globulin 2.1 GM/DL 2-4 Albumin/Globulin Ratio 2.0 1-3 Total Bilirubin 0.8 mg/dL 0.1-1.0 82 Alkaline Phosphatase 31 U/L 30-110 Alt 20 U/L 14-54 Ast 24 U/L 12-42 Egfr Non- 110.2 >60 Egfr 141.7 >60 83 Iron & Iron Binding Capacity 12/11/2011 Iron 74 UG/ML 28-170 Unsaturated Iron Binding 220 g/dL Total Iron Binding Capacity 294 g/dL 250-450 Transferrin 209.8 % Iron Saturation 25 % 15-55 Laboratory test finding 12/11/2011 Ferritin 16 NG/ML 11-307 Vitamin B12 796 pg/mL 180-914 Folate 15.3 NG/ML 2-16 Free T4 0.83 NG/ML 0.61-1.24 Total T3 1.16 NG/ML 0.5-1.7 TSH (Thyroid Stimulating Horm) 2.04 MIU/ML 0.34-5.60 Cortisol 15.8 g/dL 84 Vitamin D, 25 Hydroxy 12/11/2011 25-Hydroxy Vitamin D2 <4.0 ng/mL 25-Hydroxy Vitamin D3 26 ng/mL 25-Hydroxy Vitamin D Total 26 ng/mL 85 Celiac Panel 12/11/2011 Immunoglobulin A 72 mg/dL 61 - 356 Tissue Transglutaminase IgA Ab <1.2 U/mL 86 Celiac Interpretation See Comment 87 Vitamin D, 25 Hydroxy 12/11/2011 25-Hydroxy Vitamin D2 <4.0 ng/mL 25-Hydroxy Vitamin D3 26 ng/mL 25-Hydroxy Vitamin D Total 26 ng/mL 88 Celiac Panel 12/11/2011 Immunoglobulin A 72 mg/dL 61 - 356 Tissue Transglutaminase IgA Ab <1.2 U/mL 89 Celiac Interpretation See Comment 90 Vitamin D, 25 Hydroxy 12/11/2011 25-Hydroxy Vitamin D2 <4.0 ng/mL 25-Hydroxy Vitamin D3 26 ng/mL 25-Hydroxy Vitamin D Total 26 ng/mL 91 Carnitine Free & Total 12/11/2011 Total Carnitine 44 nmol/mL 34-78 Free Carnitine 36 nmol/mL 25-54 Acylcarnitine 8 nmol/mL 5-30 Acylcarn/Free Carnitine Ratio 0.2 0.1-0.8 Carnitine Interpretation See Comment 92 Celiac Panel 12/11/2011 Immunoglobulin A 72 mg/dL 61 - 356 Tissue Transglutaminase IgA Ab <1.2 U/mL 93 Celiac Interpretation See Comment 94 Lipid Profile (Trig/Chol/HDL) 05/07/2011 Triglyceride 39 mg/dL Low 40-200 33 Cholesterol 154 mg/dL Less Than 200 33, 95 High Density Lipoprotein 45 mg/dL 40-60 33, 96 Cholesterol/HDL Ratio 3.42 AVERAGE 1-4.44 33 Low Density Lipoprotein 101 mg/dL High Less Than 100 33, 97 Basic Metabolic Panel 05/07/2011 Sodium 138 mmol/L 135-145 33 Potassium 4.3 mmol/L 3.5-5.0 33 Chloride 108 mmol/L 101-111 33 Co2 (Carbon Dioxide) 24.0 mmol/L 22-32 33 Anion Gap 6.0 mmol/L 2-11 33, 98 Glucose 83 mg/dL 70-100 33 BUN 10 mg/dL 6-24 33 Creatinine 0.7 mg/dL 0.50-1.40 33 One Over Creatinine 1.42 33 BUN/Creatinine Ratio 14.3 8-20 33 Calcium 8.9 mg/dL 8.1-9.9 33 eGFR Non- 92.2 > 60 33 eGFR 118.6 > 60 33, 99 Laboratory test finding 05/07/2011 TSH 1.81 MIU/ML 0.34-5.60 33 Urinalysis W/Microscopic 04/08/2010 Ua Color YELLOW Yellow Appearance-Urine CLEAR Clear Specific Alex-Ur 1.019 1.010-1.030 Esterase-Urine 1+ Negative Nitrite NEGATIVE Negative Oolfaurkhvku-If-BDC NEGATIVE Negative Protein-Urine NEGATIVE Negative PH-Urine 6.5 5-9 Blood-Urine 2+ Negative Ketones-Urine NEGATIVE Negative Bilirubin-Ur NEGATIVE Negative Glucose-Urine NEGATIVE Negative WBC-Urine 5-10 0-5 RBC-Urine 15-20 0-2 Epith Cells-Ur FEW None Bacteria-Urine 1+ None Urine Culture & Sensitivi 04/08/2010 Urine Culture ESCHERICHIA COLI 100 Sensitivi Sensitivities For Urine 04/08/2010 Ampicillin <=2 Culture Amikacin <=2 Ciprofloxacin <=0.25 Ceftriaxone <=1 Cefazolin <=4 Nitrofurantoin <=16 Gentamicin <=1 Imipenem <=1 Levofloxacin <=0.12 Trimeth-Sulfa <=20 Ceftazidime <=1 Tigecycline <=0.5 Piperacillin/Tazobactam KB 26 Laboratory test finding 02/14/2010 Rheumatoid Factor < 20.0 IU/mL Less Than 20 Cyclic Citrullinated Pep Igg <15.6 U () 101 Erythrocyte Sed Rate 1 MM/HR 0-15 C Reactive Protein < 0.5 mg/dL Less Than 0.5 CBC With Electronic Diff 01/28/2010 White Blood Count 5.5 CUMM 4.8-10.8 Red Cell Count 4.66 CUMM 4.2-5.4 Hemoglobin 14.2 g/dL 12.0-16.0 Hematocrit 42 % 35-47 Mean Corpuscular Volume 89 um3 79-97 Mean Corpuscular Hemoglob 30 pg 27-31 Mean Corpuscular HGB Cone 34 g/dL 32-36 Redcell Distribution WDTH 12 % 10.5-15 Platelet Count 201 CUMM 150-450 Mean Platelet Volume 7.2 um3 Low 7.4-10.4 Gran % 51.3 % 38-83 Lymph % 38.8 % 25-47 Mononuclear % 7.0 % 1-9 Eosinophil % 2.4 % 0-6 Basophil % 0.5 % 0-2 Abs Lymphs 2.1 1.0-4.8 Abs Mononuclear 0.4 0-0.8 Absolute Neutrophil Count 2.8 1.5-7.7 Abs Eosinophils 0.1 0-0.6 Abs Basophils 0 0-0.2 Lipid Profile (Trig/Chol/HDL) 01/28/2010 Triglyceride 45 mg/dL 40-200 Cholesterol 147 mg/dL Less Than 200 102 High Density Lipoprotein 40 mg/dL 40-60 103 Cholesterol/HDL Ratio 3.68 AVERAGE 1-4.44 Low Density Lipoprotein 98 mg/dL Less Than 100 104 Comp Metabolic Panel 01/28/2010 Sodium 140 mmol/L 135-145 Potassium 3.9 mmol/L 3.5-5.0 Chloride 109 mmol/L 101-111 Co2 (Carbon Dioxide) 24.0 mmol/L 22-32 Anion Gap 7.0 mmol/L 2-11 105 Glucose 89 mg/dL 70-100 106 BUN 11 mg/dL 6-24 Creatinine 0.60 mg/dL 0.50-1.40 One Over Creatinine 1.60 BUN/Creatinine Ratio 18.3 8-20 Calcium 9.2 mg/dL 8.1-9.9 Total Protein 7.1 GM/DL 6.2-8.1 Albumin 4.4 GM/DL 3.6-5.4 Globulin 2.7 GM/DL 2-4 Albumin/Globulin Ratio 1.6 1-3 Bilirubin Total 1.1 mg/dL 0.4-1.5 107 Alkaline Phosphatase 32 U/L 30-110 Alt (SGPT) 22 U/L 14-54 Ast (Sgot) 24 U/L 12-42 eGFR Non- 118.3 > 60 eGFR 143.1 > [address] Wills's Lab Panel 01/28/2010 TSH 1.74 MIU/ML 0.34-5.60 Laboratory test finding 07/05/2009 Throat-Beta Strep NF 109 Culture Vitamin D, 25 Hydroxy 07/02/2009 25-Hydroxy Vitamin D2 <4.0 ng/mL () 25-Hydroxy Vitamin D3 31 ng/mL () 25-Hydroxy Vitamin D Total 31 ng/mL () 110 Laboratory test finding 07/02/2009 TSH 1.53 MIU/ML 0.34-5.60 Thyroxine Free 1.04 NG/ML 0.61-1.24 111 T3 Total 1.37 NG/ML 0.5-1.7 Vitamin B12 1098 pg/mL High 180-914 Urine Culture & Sensitivi 02/17/2009 Urine Culture Sensitivi NF1 112 Urinalysis W/Microscopic 02/17/2009 Ua Color RED Appearance-Urine CLEAR Specific Alex-Ur 1.007 Low 1.010-1.030 Esterase-Urine 1+ Negative Nitrite NEGATIVE Negative Oaljjkyuytjn-Bl-LZL NEGATIVE Negative Protein-Urine TRACE Negative PH-Urine 7.0 5-9 Blood-Urine 3+ Negative Ketones-Urine NEGATIVE Negative Bilirubin-Ur NEGATIVE Negative Glucose-Urine NEGATIVE Negative WBC-Urine 4-6 0-5 RBC-Urine TNTC 0-2 Mucus Urine SMALL Epith Cells-Ur FEW Bacteria-Urine RARE Amorphous Sed-U FEW Vitamin D, 25 Hydroxy 01/11/2009 25-Hydroxy Vitamin D2 <4.0 ng/mL () 25-Hydroxy Vitamin D3 25 ng/mL () 25-Hydroxy Vitamin D Total 25 ng/mL () 113 Laboratory test finding 05/02/2008 (HCG) Serum NEGATIVE Negative 114 TSH 1.27 MIU/ML 0.34-5.60 RPR NON REACTIVE Nonreactive CBC With Manual Diff 01/30/2008 White Blood Count 5.2 CUMM 4.8-10.8 Red Cell Count 4.55 CUMM 4.2-5.4 Hemoglobin 13.7 g/dL 12.0-16.0 Hematocrit 40 % 35-47 Mean Corpuscular Volume 88 um3 79-97 Mean Corpuscular Hemoglob 30 pg 27-31 Mean Corpuscular HGB Cone 34 g/dL 32-36 Redcell Distribution WDTH 12 % 10.5-15 Platelet Count 222 CUMM 150-450 Mean Platelet Volume 7.6 um3 7.4-10.4 Polysegmented Neutrophil 55 % 38-83 Band Neutrophil 1 % 0-8 Lymphocyte 34 % 25-47 Monocyte 3 % 0-13 Eosenophil 2 % 0-6 Basophil 1 % 0-2 Atypical Lymph 4 % 0-6 Absolute Neutrophil Count 2.9 RBC Morphology NORMAL Laboratory test finding 01/30/2008 Angiotensin Converting 10 U/L 7-46 115 Enzyme Laboratory test finding 01/30/2008 PTT (Aptt) 26.7 20.1-28.2 116 Protime 01/30/2008 Protime 12.3 10.9-13.3 Inr 1.03 117 1 No evidence of antibodies to B. burgdorferi detected. False negative results may occur in recently infected patients (<=2 weeks) due to low or undetectable antibody levels to B. burgdorferi. If recent exposure is suspected, a second sample should be collected and tested in 2-4 weeks. Test Performed by: [facility] - [facility] [address] [place] [address] 2 PLEASE FAX RESULTS TO: [phone] RESULT: Reviewed by: Bill Starr M.D., Cris Rizo D(ALFREDO) ADDITIONAL INFORMATION Reference values implemented June 14, 2012. This test was developed using an analyte specific reagent. Its performance characteristics were determined by [facility] in a manner consistent with CLIA requirements. This test has not been cleared or approved by the U.S. Food and Drug Administration. Test Performed by: [facility] - [address] [address] 4 Because ethnic data is not always readily available, this report includes an eGFR for both -Americans and non- Americans. The National Kidney Disease Education Program (NKDEP) does not endorse the use of the MDRD equation for patients that are not between the ages of 18 and 70, are , have extremes of body size, muscle mass, or nutritional status, or are non- or non-. According to the National Kidney Foundation, irrespective of diagnosis, the stage of the disease is based on the level of kidney function: Stage Description GFR(mL/min/1.73 m(2)) 1 Kidney damage with normal or decreased GFR 90 2 Kidney damage with mild decrease in GFR 60-89 3 Moderate decrease in GFR 30-59 4 Severe decrease in GFR 15-29 5 Kidney failure <15 (or dialysis) 5 Payroll And Benefits Specialist: [id number] 7 SEE RESULT BELOW Name: MADINA IRAHETA : [address]: Ezekiel Morris MD Acct: [id number] Unit: [id number] AGE: 47 Location: [facility] Re07/24/17 SEX: F Status: DEP ER SPEC: [id number] AIDE: 07/24/[address] [facility] [address]: Dylan KIRK REQ: [id number] RECD: 07/25/17 STATUS: JESICA WHITTINGTON DR: John Morris MD _ SOURCE: URINE SPDESC: ORDERED: Urine Culture COMMENTS: [id number] Procedure Result Reported Site Urine Culture Final 07/26/17- 1253 ML No Growth (<1,000 CFU/mL) * ML - Main Lab . END OF REPORT DEPARTMENT OF PATHOLOGY, [address] [place] [address] Nuno Birmingham M.D. Director [facility] # [id number] 8 SEE RESULT BELOW Name: ASAEL REYESMADINA : [address]: Cheri Vanessa MD Acct: [id number] Unit: [id number] AGE: 47 Location: [facility] Re06/09/17 SEX: F Status: REG REF SPEC: [id number] AIDE: 06/09/17-[address]: Cheri Vanessa MD REQ: [id number] RECD: 06/09/17 STATUS: BRANDI WHITTINGTON DR: John Pearson MD _ ORDERED: LEVEL 4 COMMENTS: [id number] FINAL DIAGNOSIS Uterus, endometrium, biopsy: -- Weakly proliferative endometrium with no significant pathologic abnormality. -- No evidence of hyperplasia or neoplasia identified. PRE-OPERATIVE DIAGNOSIS Dysfunctional uterine bleeding GROSS DESCRIPTION The specimen is received in formalin labeled, EM BX, and consists of a 2.5 x 2.0 x 0.4 cm aggregate of wade-pink irregular soft tissue fragments admixed with translucent mucus and red-brown blood clot, which is filtered and entirely submitted in one cassette. Signed (signature on file) Nuno Birmingham MD 1350 END OF REPORT DEPARTMENT OF PATHOLOGY, [address] [place] [address] Nuno Birmingham M.D. Director [facility] # [id number] 9 SEE RESULT BELOW Name: MADINA IRAHETA : [address]: Genet Weiss NP Acct: [id number] Unit: [id number] AGE: 46 Location: [facility] Re01/25/17 SEX: F Status: REG REF SPEC: [id number] AIDE: 01/25/17-[address]: Genet Weiss NP REQ: [id number] RECD: 01/25/17 STATUS: COMP _ SOURCE: URINE SPDESC: ORDERED: Urine Culture COMMENTS: [id number] Procedure Result Reported Site Urine Culture Final 01/27/17- 904 ML No growth of clinically significant organisms * ML - MAIN LAB ([facility]) . END OF REPORT * ML=Testing performed at Main Lab DEPARTMENT OF PATHOLOGY, [address] [place] [address] Nuno Birmingham M.D. Director [facility] # [id number] 11 SEE RESULT BELOW Name: ASAEL LUCAMADINA : [address]: Kanika Romeo MD Acct: [id number] Unit: [id number] AGE: 46 Location: [facility] Re01/17/17 SEX: F Status: DEP ER SPEC: [id number] AIDE: 01/17/17-[address] [facility] [address]: Dylan KIRK REQ: [id number] RECD: 01/17/170 STATUS: JESICA WHITTINGTON DR: John Romeo MD _ SOURCE: URINE SPDESC: ORDERED: Urine Culture COMMENTS: [id number] Procedure Result Reported Site Urine Culture Final 01/18/17- 1254 ML No Growth (<1,000 CFU/mL) * ML - [facility] ([facility]) . END OF REPORT * ML=Testing performed at Main Lab DEPARTMENT OF PATHOLOGY, [address] [place] [address] Nuno Birmingham M.D. Director [facility] # [id number] 12 Payroll And Benefits Specialist: [id number] 14 SEE RESULT BELOW Name: ASAEL REYESMADINA : [address]: Ezekiel Morris MD Acct: [id number] Unit: [id number] AGE: 46 Location: [facility] Re01/07/17 SEX: F Status: REG REF SPEC: [id number] AIDE: 01/07/17-[address] [facility] [address]: Caryn Capps NP REQ: [id number] RECD: 01/07/176697 STATUS: JESICA WHITTINGTON DR: John Morris MD _ SOURCE: URINE SPDESC: ORDERED: Urine Culture COMMENTS: [id number] Procedure Result Reported Site Urine Culture Final 01/09/17- 0744 ML Organism 1 ESCHERICHIA COLI Benge Count >100,000 (Many) CFU/ML 1. ESCHERICHIA COLI M.I.C. RX --------- ------ Ampicillin 4 S Cefazolin <=4 S Cefepime <=1 S Ceftriaxone <=1 S Ciprofloxacin <=0.25 S Gentamicin <=1 S Levofloxacin <=0.12 S Meropenem <=0.25 S Nitrofurantoin <=16 S Tetracycline <=1 S Pipercillin/Tazobactam <=4 S Trimethoprim/Sulfamethoxazole <=20 S Amoxicillin/Clavulanic Acid 4 S Aztreonam <=1 S Contact the Microbiology Department for any additional antibiotic reporting. * ML - MAIN LAB ([facility]) . END OF REPORT * ML=Testing performed at Main Lab DEPARTMENT OF PATHOLOGY, [address] [place] [address] Nuno Birmingham M.D. Director [facility] # [id number] 15 Because ethnic data is not always readily available, this report includes an eGFR for both -Americans and non- Americans. The National Kidney Disease Education Program (NKDEP) does not endorse the use of the MDRD equation for patients that are not between the ages of 18 and 70, are , have extremes of body size, muscle mass, or nutritional status, or are non- or non-. According to the National Kidney Foundation, irrespective of diagnosis, the stage of the disease is based on the level of kidney function: Stage Description GFR(mL/min/1.73 m(2)) 1 Kidney damage with normal or decreased GFR 90 2 Kidney damage with mild decrease in GFR 60-89 3 Moderate decrease in GFR 30-59 4 Severe decrease in GFR 15-29 5 Kidney failure <15 (or dialysis) 16 No interferon-gamma response to M. tuberculosis antigens was detected. Infection with M. tuberculosis is unlikely. A negative result alone does not exclude infection with M. tuberculosis. For detailed information regarding test interpretation see: www.[employer]/test-catalog/ Clinical+and+Interpretive/59402 17 Test Performed by: [place] [address] 18 Results suggest response to immunization or prior exposure to the virus. REFERENCE VALUE Vaccinated: Positive (>=1.1 AI) Unvaccinated: Negative (<=0.8 AI) 19 Test Performed by: [place] [address] 20 Test Performed by: [place] [address] 21 Test Performed by: [address], [place] [address] 22 Test Performed by: [facility] - [facility] [address] [place] [address] 23 RESULT: Reviewed by: Ren No M.D. ADDITIONAL INFORMATION This test was developed using an analyte specific reagent. Its performance characteristics were determined by [facility] in a manner consistent with CLIA requirements. This test has not been cleared or approved by the U.S. Food and Drug Administration. Test Performed by: [facility] - [address] [address] 24 If is still suspected, please repeat test after 48 to 72 hours. This test detects intact HCG only and is indicated for the early detection of . 25 SEE RESULT BELOW Name: MADINA IRAHETA : [address]: Jorge Kam MD Acct: [id number] Unit: [id number] AGE: 46 Location: [place] Re03/23/16 SEX: F Status: REG [facility] SPEC: [id number] AIDE: 03/23/16- SUBM DR: Jorge Kam MD REQ: [id number] RECD: 03/24/16 STATUS: SOUT _ ORDERED: LEVEL III FINAL DIAGNOSIS Gallbladder, cholecystectomy: -- Chronic cholecystitis. PRE-OPERATIVE DIAGNOSIS Right upper quadrant pain GROSS DESCRIPTION The specimen is received in formalin labeled, Gallbladder, and consists of an 8.0 x 2.9 x 2.8 cm intact gallbladder. The serosa is glistening smooth and green. The lumen contains abundant green-black viscid bile. Choleliths are not identified within the lumen or the container. The mucosa is reticulated green and the wall thickness averages 0.1 cm. Educational Interpreter sections, one cassette. Signed (signature on file) Nuno Birmingham MD 1350 END OF REPORT * ML=Testing performed at Main Lab DEPARTMENT OF PATHOLOGY, [address] [place] [address] Nuno Birmingham M.D. Director [facility] # [id number] 26 Because ethnic data is not always readily available, this report includes an eGFR for both -Americans and non- Americans. The National Kidney Disease Education Program (NKDEP) does not endorse the use of the MDRD equation for patients that are not between the ages of 18 and 70, are , have extremes of body size, muscle mass, or nutritional status, or are non- or non-. According to the National Kidney Foundation, irrespective of diagnosis, the stage of the disease is based on the level of kidney function: Stage Description GFR(mL/min/1.73 m(2)) 1 Kidney damage with normal or decreased GFR 90 2 Kidney damage with mild decrease in GFR 60-89 3 Moderate decrease in GFR 30-59 4 Severe decrease in GFR 15-29 5 Kidney failure <15 (or dialysis) 27 [facility] Severe Sepsis and Septic Shock Management Bundle Measure requires all lactic acids initially measuring >2.0 mmol/L be repeated. 28 SEE RESULT BELOW Name: ASAEL REYESMADINA : [address]: Kyrie Pearson MD Acct: [id number] Unit: [id number] AGE: 45 Location: [facility] Re07/25/15 SEX: F Status: REG REF SPEC: [id number] AIDE: 07/25/[address]: John Pearson MD REQ: [id number] RECD: 07/25/15 STATUS: COMP _ SOURCE: THROAT SPDESC: ORDERED: Throat Culture COMMENTS: [id number] Procedure Result Reported Site Throat Culture Final 07/27/15- 0953 ML Organism 1 NORMAL KAREN Quantity 3+ Throat cultures are clinically indicated to detect the presence of group A strep, arcanobacterium and yeast. In certain cases, predominating organisms will be reported. * ML - MAIN LAB ([facility]) . END OF REPORT * ML=Testing performed at Main Lab DEPARTMENT OF PATHOLOGY, [address] [place] [address] Nuno Birmingham M.D. Director [facility] # [id number] 29 Acute inflammation: >10.00 30 Test Performed by: [place] [address] Supervisor Hot Dip Plating: Cuong Cota II, M.D., Ph.D. 31 Serologic response to B. burgdorferi infection is not detected, but cannot rule out early infection during which low or undetectable antibody levels to B. burgdorferi may be present. If clinically indicated, a new serum specimen should be submitted in 7-14 days. Test Performed by: [place] [address]105 Supervisor Hot Dip Plating: Cuong Cota II, M.D., Ph.D. 32 Normal Range 180 to 914 Indeterminate Range 145 to 180 Deficient Range <145 33 FASTING 34 Desirable <150 Borderline high 150-199 High 200-499 Very High >500 35 Desirable <200 Borderline high 200-239 High >239 36 Low <40 Desirable: 40-60 High: >60 37 Desirable: <100 mg/dL Near Optimal: 100-129 mg/dL Borderline High: 130-159 mg/dL High: 160-189 mg/dL Very High: >189 mg/dL 38 FASTING 39 SEE RESULT BELOW Name: MADINA VYAS : [address]: Priyank Recinos MD Acct: [id number] Unit: [id number] AGE: 44 Location: [facility] Re07/08/14 SEX: F Status: DEP ER SPEC: [id number] AIDE: 07/08/[address] [facility] [address]: Priyank Recinos MD REQ: [id number] RECD: 07/09/14 STATUS: RES NELSY DR: John Spence RPA-C _ SOURCE: URINE SPDESC: ORDERED: Urine Culture Procedure Result Verified Site Urine Culture Preliminary 07/10/14- 1145 ML Organism 1 ESCHERICHIA COLI Benge Count >100,000 (Many) CFU/ML * ML - MAIN LAB ([facility]) . END OF REPORT * ML=Testing performed at Main Lab DEPARTMENT OF PATHOLOGY, [address] [place] [address] Nuno Birmingham M.D. Director [facility] # [id number] 40 SEE RESULT BELOW Name: MADINA VYAS : [address]: Priyank Recinos MD Acct: [id number] Unit: [id number] AGE: 44 Location: [facility] Re07/08/14 SEX: F Status: DEP ER SPEC: [id number] AIDE: 07/08/[address] [facility] [address]: Priyank Recinos MD REQ: [id number] RECD: 07/09/144 STATUS: JESICA WHITTINGTON DR: John Spence RPA-C _ SOURCE: URINE SPDESC: ORDERED: Urine Culture Procedure Result Verified Site Urine Culture Final 07/11/14- 0833 ML Organism 1 ESCHERICHIA COLI Benge Count >100,000 (Many) CFU/ML Organism 2 NORMAL KAREN Benge Count 50-75,000 (Many) CFU/ML 1. ESCHERICHIA COLI M.I.C. RX --------- ------ Ampicillin 8 S Cefazolin <=4 S Cefepime <=1 S Ceftriaxone <=1 S Ciprofloxacin <=0.25 S Gentamicin <=1 S Levofloxacin <=0.12 S Meropenem <=0.25 S Nitrofurantoin <=16 S Tetracycline <=1 S Pipercillin/Tazobactam <=4 S Trimethoprim/Sulfamethoxazole <=20 S Amoxicillin/Clavulanic Acid 4 S Aztreonam <=1 S Contact the Microbiology Department for any additional antibiotic reporting. * ML - MAIN LAB ([facility]) . END OF REPORT * ML=Testing performed at Main Lab DEPARTMENT OF PATHOLOGY, [address] [place] [address] Nuno Birmingham M.D. Director [facility] # [id number] 41 Because ethnic data is not always readily available, this report includes an eGFR for both -Americans and non- Americans. The National Kidney Disease Education Program (NKDEP) does not endorse the use of the MDRD equation for patients that are not between the ages of 18 and 70, are , have extremes of body size, muscle mass, or nutritional status, or are non- or non-. According to the National Kidney Foundation, irrespective of diagnosis, the stage of the disease is based on the level of kidney function: Stage Description GFR(mL/min/1.73 m(2)) 1 Kidney damage with normal or decreased GFR 90 2 Kidney damage with mild decrease in GFR 60-89 3 Moderate decrease in GFR 30-59 4 Severe decrease in GFR 15-29 5 Kidney failure <15 (or dialysis) 42 Normal Range 180 to 914 Indeterminate Range 145 to 180 Deficient Range <145 43 REFERENCE VALUE 25-HYDROXY D TOTAL (D2+D3) Optimum levels in the healthy population are 20-50, patients with bone disease may benefit from higher levels within this range. Test Performed by: [place] [address] Supervisor Hot Dip Plating: Matt Yang M.D. 44 Class 0 (Negative <0.35) Test Performed by: [place] [address] Supervisor [employer]: Matt Yang M.D. 45 Class 0 (Negative <0.35) Test Performed by: [place] [address] Supervisor [employer]: Matt Yang M.D. 46 Class 0 (Negative <0.35) Test Performed by: [place] [address] Supervisor [employer]: Matt Yang M.D. 47 Class 0 (Negative <0.35) Test Performed by: [place] [address] Supervisor [employer]: Matt Yang M.D. 48 Class 0 (Negative <0.35) Test Performed by: [place] [address] Supervisor [employer]: Matt Yang M.D. 49 Class 0 (Negative <0.35) Test Performed by: [place] [address] Supervisor [employer]: Matt Yang M.D. 50 Class 0 (Negative <0.35) Test Performed by: [place] [address] Supervisor [employer]: Matt Yang M.D. 51 Class 0 (Negative <0.35) Test Performed by: [place] [address] Supervisor [employer]: Matt Yang M.D. 52 Class 0 (Negative <0.35) Test Performed by: [place] [address] Supervisor [employer]ating: Matt Yang M.D. 53 RUN DATE: 03/30/14 [facility] LAB LIVE PAGE 1 RUN TIME: [address] [place] [address] Specimen Inquiry Name: ASAELMADINA : [address]: Kyrie Pearson MD Acct: [id number] Unit: [id number] AGE: 44 Location: [facility] Re03/28/14 SEX: F Status: REG REF SPEC: [id number] AIDE: 03/28/14-[address]: John Pearson MD REQ: [id number] RECD: 03/28/14-135 STATUS: COMP _ SOURCE: URINE SPDESC: ORDERED: Urine Culture QUERIES: Provider Requisition # [id number] Procedure Result Verified Site Urine Culture Final 03/30/14- 1218 ML Organism 1 NORMAL KAREN Benge Count 50-75,000 (Many) CFU/ML END OF REPORT * ML=Testing performed at Main Lab DEPARTMENT OF PATHOLOGY, [address] [place] [address] Nuno Birmingham M.D. Director [facility] # [id number] RUN DATE: 03/25/14 [facility] LAB LIVE PAGE 1 RUN TIME: 1029 [address] [place], [place] [address] Specimen Inquiry Name: MADINA VYAS : [address]: Michael Werner MD Acct: [id number] Unit: [id number] AGE: 44 Location: ED Re03/23/14 SEX: F Status: DEP ER SPEC: [id number] AIDE: 03/23/[address] [facility] [address]: Michael Werner MD REQ: [id number] RECD: 03/23/14 STATUS: JESICA WHITTINGTON DR: [facility] John Pearson MD _ SOURCE: URINE SPDESC: ORDERED: Urine Culture Procedure Result Verified Site Urine Culture Final 03/25/14- 1028 ML Organism 1 NORMAL KAREN Benge Count >100,000 (Many) CFU/ML END OF REPORT * ML=Testing performed at Main Lab DEPARTMENT OF PATHOLOGY, [address] [place] [address] Nuno Birmingham M.D. Director [facility] # [id number] 55 Normal Range 180 to 914 Indeterminate Range 145 to 180 Deficient Range <145 56 Interpretation: 51-80 ng/mL (increased risk of hypercalciuria) REFERENCE VALUE 25-HYDROXY D TOTAL (D2+D3) Optimum levels in the healthy population are 20-50, patients with bone disease may benefit from higher levels within this range. Test Performed by: [address] [address] Supervisor [employer]ating: Matt Yang M.D. 57 Because ethnic data is not always readily available, this report includes an eGFR for both -Americans and non- Americans. The National Kidney Disease Education Program (NKDEP) does not endorse the use of the MDRD equation for patients that are not between the ages of 18 and 70, are , have extremes of body size, muscle mass, or nutritional status, or are non- or non-. According to the National Kidney Foundation, irrespective of diagnosis, the stage of the disease is based on the level of kidney function: Stage Description GFR(mL/min/1.73 m(2)) 1 Kidney damage with normal or decreased GFR 90 2 Kidney damage with mild decrease in GFR 60-89 3 Moderate decrease in GFR 30-59 4 Severe decrease in GFR 15-29 5 Kidney failure <15 (or dialysis) 58 RUN DATE: 10/26/13 [facility] LAB LIVE PAGE 1 RUN TIME: 9204 [address] [place], [place] [address] Specimen Inquiry Name: MADINA VYAS : [address]: Bigg Olivas MD Acct: [id number] Unit: [id number] AGE: 43 Location: THYROID Re10/26/13 SEX: F Status: REG REF SPEC: [id number] AIDE: 10/26/13-[address] [facility] [address]: Faisal De Los Santos MD REQ: [id number] RECD: 10/26/135 STATUS: BRANDI WHITTINGTON DR: Bigg Pearson MD _ ORDERED: FN ASP DEEP/2, FNA Imme St Add/2, FNA IMMEDIATE S/2 FINAL DIAGNOSIS 1) Thyroid, left superior, Ultrasound guided, fine needle aspiration: Benign thyroid nodule- involutional type 2) Thyroid, left mid, Ultrasound guided, fine needle aspiration: Benign thyroid nodule- involutional type COMMENTS: 1) The specimen demonstrates abundant watery proteinaceous fluid, a moderate amount of benign appearing follicular epithelium arranged in uniform sheets, medium sized follicles and only occasional small groups. Abundant pigmented and non-pigmented macrophages are seen in the background. No features of papillary carcinoma are seen. In this clinical setting the risk of malignancy is less than 3%. Clinical management of this thyroid nodule should be based on clinical and radiographic features as well as the above findings. 2) The specimen demonstrates abundant watery proteinaceous fluid, a modest amount of benign appearing follicular epithelium arranged in uniform sheets, medium sized follicles and only occasional small groups. Abundant pigmented and non-pigmented macrophages are seen in the background. No features of papillary carcinoma are seen. In this clinical setting the risk of malignancy is less than 3%. Clinical CONTINUED ON NEXT PAGE * ML=Testing performed at Main Lab DEPARTMENT OF PATHOLOGY, [facility] [place] [address] Nuno Birmingham M.D. Director [facility] # [id number] RUN DATE: 10/26/13 [facility] LAB LIVE PAGE 2 RUN TIME: [address] [place] [address] Specimen Inquiry Patient: MADINA VYAS [id number] (Continued) SPECIMEN COMMENTS (Continued) management of this thyroid nodule should be based on clinical and radiographic features as well as the above findings. 1. THYROID LEFT - LEFT SUPERIOR US GUIDED FINE NEEDLE ASPIRATION, 2. 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 Signed (signature on file) Mariela Plascencia MD 06/05 1044 END OF REPORT * ML=Testing performed at Main Lab DEPARTMENT OF PATHOLOGY, [address] [place] [address] Nuno Birmingham M.D. Director [facility] # [id number] 59 Desirable <150 Borderline high 150-199 High 200-499 Very High >500 60 Desirable <200 Borderline high 200-239 High >239 61 Low <40 Desirable: 40-60 High: >60 62 Desirable <100 Near Optimal 100-129 Borderline high 130-159 High 160-189 Very High >189 63 Results suggest response to immunization or prior exposure to the virus. -- REFERENCE VALUE -- Vaccinated: Positive (>=1.1 AI) Unvaccinated: Negative (<=0.8 AI) 64 Test Performed by: [facility] - [address] [address] Supervisor [employer]ating: Phan Ordaz III, M.D. 65 Results suggest response to immunization or prior exposure to the virus. -- REFERENCE VALUE -- Vaccinated: Positive (>=1.1 AI) Unvaccinated: Negative (<=0.8 AI) 66 Test Performed by: [place] [address] Supervisor [employer]: Phan Ordaz III, M.D. 67 Test Performed by: [place] [address] Supervisor [employer]ating: Phan Ordaz III, M.D. 68 Interpretation: 51-80 ng/mL (increased risk of hypercalciuria) -- REFERENCE VALUE -- 25-HYDROXY D TOTAL (D2+D3) Optimum levels in the healthy population are 20-50, patients with bone disease may benefit from higher levels within this range. Test Performed by: [place] [address] Supervisor [employer]ating: Phan Ordaz III, M.D. 69 Because ethnic data is not always readily available, this report includes an eGFR for both -Americans and non- Americans. The National Kidney Disease Education Program (NKDEP) does not endorse the use of the MDRD equation for patients that are not between the ages of 18 and 70, are , have extremes of body size, muscle mass, or nutritional status, or are non- or non-. According to the National Kidney Foundation, irrespective of diagnosis, the stage of the disease is based on the level of kidney function: Stage Description GFR(mL/min/1.73 m(2)) 1 Kidney damage with normal or decreased GFR 90 2 Kidney damage with mild decrease in GFR 60-89 3 Moderate decrease in GFR 30-59 4 Severe decrease in GFR 15-29 5 Kidney failure <15 (or dialysis) 70 RUN DATE: 04/24/13 [facility] LAB LIVE PAGE 1 RUN TIME: [address] [place] [address] Specimen Inquiry Name: MADINA IRAHETA : [address]: Nicolette Paredes MD Acct: [id number] Unit: [id number] AGE: 43 Location: [facility] Re04/23/13 SEX: F Status: DEP ER SPEC: [id number] AIDE: 04/23/13-[address] [facility] [address]: Nicolette Paredes MD REQ: [id number] RECD: 04/23/13 STATUS: RES OTHR DR: John Pearson MD _ SOURCE: THROAT SPDESC: ORDERED: Throat Beta Str Procedure Result Verified Site Throat Beta Strep Culture Preliminary 04/24/13- 901 ML Negative For Group A Beta Streptococcus END OF REPORT * ML=Testing performed at Main Lab DEPARTMENT OF PATHOLOGY, [address] [place] [address] Nuno Birmingham M.D. Director [facility] Permit #[id number] 71 Interpretation: 51-80 ng/mL (increased risk of hypercalciuria) -- REFERENCE VALUE -- 25-HYDROXY D TOTAL (D2+D3) Optimum levels in the healthy population are 20-50, patients with bone disease may benefit from higher levels within this range. Test Performed by: [facility] [place] [address] Supervisor Hot [employer] Plating: Phan Ordaz III, M.D. 72 Because ethnic data is not always readily available, this report includes an eGFR for both -Americans and non- Americans. The National Kidney Disease Education Program (NKDEP) does not endorse the use of the MDRD equation for patients that are not between the ages of 18 and 70, are , have extremes of body size, muscle mass, or nutritional status, or are non- or non-. According to the National Kidney Foundation, irrespective of diagnosis, the stage of the disease is based on the level of kidney function: Stage Description GFR(mL/min/1.73 m(2)) 1 Kidney damage with normal or decreased GFR 90 2 Kidney damage with mild decrease in GFR 60-89 3 Moderate decrease in GFR 30-59 4 Severe decrease in GFR 15-29 5 Kidney failure <15 (or dialysis) 73 Because ethnic data is not always readily available, this report includes an eGFR for both -Americans and non- Americans. The National Kidney Disease Education Program (NKDEP) does not endorse the use of the MDRD equation for patients that are not between the ages of 18 and 70, are , have extremes of body size, muscle mass, or nutritional status, or are non- or non-. According to the National Kidney Foundation, irrespective of diagnosis, the stage of the disease is based on the level of kidney function: Stage Description GFR(mL/min/1.73 m(2)) 1 Kidney damage with normal or decreased GFR 90 2 Kidney damage with mild decrease in GFR 60-89 3 Moderate decrease in GFR 30-59 4 Severe decrease in GFR 15-29 5 Kidney failure <15 (or dialysis) 74 -- REFERENCE VALUE -- 25-HYDROXY D TOTAL (D2+D3) Optimum levels in the normal population are 25-80 Test Performed by: [place] [address] Supervisor [employer]: Phan Ordaz III, M.D. 75 Class 0 (Negative <0.35) 76 Class 0 (Negative <0.35) Test Performed by: [place] [address] Supervisor [employer]ating: Phan Ordaz III, M.D. 77 Class 0 (Negative <0.35) Test Performed by: [place] [address] Supervisor [employer]ating: Phan Ordaz III, M.D. 78 Class 0 (Negative <0.35) 79 Class 0 (Negative <0.35) 80 Test Performed by: [place] [address] Supervisor Hot [employer] Plating: Phan Ordaz III, M.D. 81 Class 0 (Negative <0.35) 82 A metabolite of Naproxen, O-desmethylnaproxen, has been shown to interfere with the Jendrmanuelaik-Markus method for measuring total bilirubin. Samples from patients who have taken Naproxen have shown spurious elevation in total bilirubin levels. 83 Because ethnic data is not always readily available, this report includes an eGFR for both -Americans and non- Americans. The National Kidney Disease Education Program (NKDEP) does not endorse the use of the MDRD equation for patients that are not between the ages of 18 and 70, are , have extremes of body size, muscle mass, or nutritional status, or are non- or non-. According to the National Kidney Foundation, irrespective of diagnosis, the stage of the disease is based on the level of kidney function: Stage Description GFR(mL/min/1.73 m(2)) 1 Kidney damage with normal or decreased GFR 90 2 Kidney damage with mild decrease in GFR 60-89 3 Moderate decrease in GFR 30-59 4 Severe decrease in GFR 15-29 5 Kidney failure <15 (or dialysis) 84 AM Cortisol 8.7-22.4 PM Cortisol Less than 10 85 -- REFERENCE VALUE -- 25-HYDROXY D TOTAL (D2+D3) Optimum levels in the normal population are 25-80 Test Performed by: [place] [address] Supervisor [employer]: Phan Ordaz III, M.D. R 86 -- REFERENCE VALUE -- <4.0 (Negative) Test Performed by: [place] [address] Supervisor Hot [employer] Plating: Phan Ordaz III, M.D. R 87 Negative serology. Celiac disease unlikely. However, approximately 10% of patients with celiac disease are seronegative. Also, patients who are already adhering to a gluten-free diet may be seronegative. If celiac disease is highly clinically suspected, consider HLA-DQ typing. Test Performed by: [place] [address] Supervisor Hot Dip Plating: Phan Ordaz III, M.D. R 88 -- REFERENCE VALUE -- 25-HYDROXY D TOTAL (D2+D3) Optimum levels in the normal population are 25-80 Test Performed by: [place] [address] Supervisor Hot [employer] Plating: Phan Ordaz III, M.D. R 89 -- REFERENCE VALUE -- <4.0 (Negative) Test Performed by: [place] [address] Supervisor Hot Dip Plating: Phan Ordaz III, M.D. R 90 Negative serology. Celiac disease unlikely. However, approximately 10% of patients with celiac disease are seronegative. Also, patients who are already adhering to a gluten-free diet may be seronegative. If celiac disease is highly clinically suspected, consider HLA-DQ typing. Test Performed by: [place] [address] Supervisor Hot [employer] Plating: Phan Ordaz III, M.D. R 91 -- REFERENCE VALUE -- 25-HYDROXY D TOTAL (D2+D3) Optimum levels in the normal population are 25-80 Test Performed by: [place] [address] Supervisor Hot [employer] Plating: Phan Ordaz III, M.D. R 92 RESULT: In this sample, the carnitine profile was normal. Test Performed by: [place] [address] Supervisor Hot [employer] Plating: Phan Ordaz III, M.D. R 93 -- REFERENCE VALUE -- <4.0 (Negative) Test Performed by: [place] [address] Supervisor Hot Dip Plating: Phan Ordaz III, M.D. R 94 Negative serology. Celiac disease unlikely. However, approximately 10% of patients with celiac disease are seronegative. Also, patients who are already adhering to a gluten-free diet may be seronegative. If celiac disease is highly clinically suspected, consider HLA-DQ typing. Test Performed by: [place] [address] Supervisor [employer]ating: Phan Ordaz III, M.D. R 95 CHOLESTEROL INTERPRETATION: Desirable: Less than 200 MG/DL Borderline-High Risk: 200-239 MG/DL High-Risk: 240 MG/DL and over 96 HDL INTERPRETATION: Undesirable: High Risk: Less than 40 MG/DL Desirable: Low Risk: Greater than 60 MG/DL 97 LDL INTERPRETATION: Low Risk Optimal Level: LDL Less than 100 MG/DL Near or Above Optimal: LDL 100-129 MG/DL Borderline High Risk: LDL 130-159 MG/DL High Risk: LDL 160-189 MG/DL Very High Risk: LDL Greater than 189 MG/DL 98 Anion gap measurement may be of limited value in the presence of any alkalosis, especially in a combined acid base disorder. . 99 Because ethnic data is not always readily available, this report includes an eGFR for both -Americans and non- Americans. The National Kidney Disease Education Program (NKDEP) does not endorse the use of the MDRD equation for patients that are not between the ages of 18 and 70, are , have extremes of body size, muscle mass, or nutritional status, or are non- or non-. According to the National Kidney Foundation, irrespective of diagnosis, the stage of the disease is based on the level of kidney function: Stage Description GFR(mL/min/1.73 m(2)) 1 Kidney damage with normal or decreased GFR 90 2 Kidney damage with mild decrease in GFR 60-89 3 Moderate decrease in GFR 30-59 4 Severe decrease in GFR 15-29 5 Kidney failure <15 (or dialysis) 100 >100^>100,000 ORGANISMS/ML (MANY)^CCU 101 -- REFERENCE VALUE -- <20.0 (Negative) 20.0-39.9 (Weak Positive) 40.0-59.9 (Positive) >=60.0 (Strong Positive) Test Performed by: [facility] Dpt of Lab Med and Pathology [address] [place], [place] [id number] Supervisor Hot Dip Plating: Phan Ordaz III, M.D. 102 CHOLESTEROL INTERPRETATION: Desirable: Less than 200 MG/DL Borderline-High Risk: 200-239 MG/DL High-Risk: 240 MG/DL and over 103 HDL INTERPRETATION: Undesirable: High Risk: Less than 40 MG/DL Desirable: Low Risk: Greater than 60 MG/DL 104 LDL INTERPRETATION: Low Risk Optimal Level: LDL Less than 100 MG/DL Near or Above Optimal: LDL 100-129 MG/DL Borderline High Risk: LDL 130-159 MG/DL High Risk: LDL 160-189 MG/DL Very High Risk: LDL Greater than 189 MG/DL 105 Anion gap measurement may be of limited value in the presence of any alkalosis, especially in a combined acid base disorder. . 106 Note change in reference range as of 10/13/07. The change was based on recommendations from the [place] [employer]. 107 A metabolite of Naproxen, O-desmethylnaproxen, has been shown to interfere with the Jendrassik-Markus method for measuring total bilirubin. Samples from patients who have taken Naproxen have shown spurious elevation in total bilirubin levels. 108 Because ethnic data is not always readily available, this report includes an eGFR for both -Americans and non- Americans. The National Kidney Disease Education Program (NKDEP) does not endorse the use of the MDRD equation for patients that are not between the ages of 18 and 70, are , have extremes of body size, muscle mass, or nutritional status, or are non- or non-. According to the National Kidney Foundation, irrespective of diagnosis, the stage of the disease is based on the level of kidney function: Stage Description GFR(mL/min/1.73 m(2)) 1 Kidney damage with normal or decreased GFR 90 2 Kidney damage with mild decrease in GFR 60-89 3 Moderate decrease in GFR 30-59 4 Severe decrease in GFR 15-29 5 Kidney failure <15 (or dialysis) 109 NEGATIVE FOR GROUP A BETA STREPTOCOCCUS 110 -- REFERENCE VALUE -- 25-HYDROXY D TOTAL (D2+D3) Optimum levels in the normal population are 25-80 Test Performed by: [facility] Dpt of Lab Med and Pathology [address] [place] [address] Supervisor Hot Dip Plating: Phan Ordaz III, M.D. 111 PLEASE NOTE NEW REFERENCE RANGES. 112 SPECIMEN CONTAINS NORMAL URETHRAL OR PERINEAL KAREN AND DOES NOT SUGGEST URINARY TRACT INFECTION 113 -- REFERENCE VALUE -- 25-HYDROXY D TOTAL (D2+D3) Optimum levels in the normal population are 25-80 Test Performed by: [facility] Dpt of Lab Med and Pathology [address] [place] [address] Supervisor Hot Dip Plating: Phan Ordaz III, M.D. 114 If is still suspected, please repeat test after 48 to 72 hours. . 115 The use of angiotensin converting enzyme (GISELL)-inhibiting antihypertensive drugs will cause decreased GISELL values. Test Performed by: [facility] Dpt of Lab Med and Pathology [address] [place] [address] Supervisor Hot Dip Plating: Phan Ordaz III, M.D. 116 PLEASE NOTE NEW REFERENCE RANGE EFFECTIVE 07. 117 CATARINA VALUE=2.01 ( OF 01/28/07 Recommended INR for Patients on Oral Anticoagulants Prophylaxis 2.0 - 3.0 Treatment of thrombosis 2.0 - 3.0 Prevention of embolism 2.0 - 3.0 Prevention of embolism from prosthetic heart valves 2.5 - 3.5 Procedures Date CPT Code Description Status 10/30/2016 Mammogram Completed 03/23/2016 08748 Laparoscopy Cholecystectomy Completed 03/23/2016 19777 Laparoscopy Cholecystectomy Completed 10/30/2015 Mammogram Completed 01/10/2015 95251 Nerve Conduction 09-10 Studies Completed 01/10/2015 35111 Needle Electromyography Complete, Five Or More Muscles Completed Studied 01/10/2015 15905 Needle Electromyography Each Extremity W/Related Completed Paraspinal Areas 10/04/2014 Mammogram Completed 03/28/2014 52494 EKG Tracing & Interpretation Completed 08/18/2013 Mammogram Completed 08/02/2013 95595 Holter Monitor Review (24 hr)dr review & interp only Completed 07/18/2013 63337 EKG, Interpretation Only Completed 02/08/2012 Mammogram Completed 02/14/2010 Mammogram Completed Encounters Type Date Location Provider CPT E/M Dx Office Visit 09/27/2017 [facility] [address] S93.492A 9:30a Of [facility] Office Visit 07/29/2017 [facility] [place] [address] A60.00 10:30a of [facility] R39.82 G35 Z79.899 Office Visit 05/21/2017 2:00p [facility] Internal Medicine John Pearson, [address] N93.9 - [place] O[place] Sullivan,FACP N30.80 M62.838 B35.1 S06.0x0S Office Visit 02/24/2017 8:40a [facility] Internal John Pearson, 52828 J01.10 Medicine - [place] Omid Sullivan,FAC Office Visit 01/25/2017 2:10p [facility] [place] [address] R10.30 Medicine - [place] [address] R30.0 Office Visit 01/20/2017 7:40a [facility] Internal Sourav Matthews, 10712 N39.0 Medicine - [place] Office Visit 01/04/2017 1:50p [facility] [place] [address] S06.0x0A Medicine - [address] [address] M62.838 Office Visit 09/16/2016 8:50a [facility] Internal John Pearson, 84326 S93.402A Medicine - [place] Omid Sullivan,FACP Office Visit 03/27/2016 9:20a [facility] [place] [address] R39.15 Medicine - [address] Z90.49 G35 Office Visit 03/17/2016 10:15a [facility] Jorge Kam, 035[address] R10.11 Of [facility] Office Visit 03/06/2016 4:00p [facility] Jorge Kam, 85340 R10.11 Of [facility] Office Visit 02/26/2016 11:30a [facility] Criselda Quintero M.D. 18450 M54.14 Services Of [facility] G35 Z79.899 Office Visit 01/23/2016 9:50a [facility] Internal John Pearson, 77279 R07.89 Medicine - [place] Omid Sullivan,FACP K29.00 Office Visit 10/25/2015 8:20a [facility] Internal John Pearson, 86557 K29.00 Medicine - [place] Anne M.D.,FACP H20.00 Office Visit 07/25/2015 11:10a [facility] Internal Medicine Gabriela Lynch 55998 J02.9 [place] O[place] Pearson M.D.,FACP Office Visit 07/08/2015 9:00a [facility] Criselda Quintero, 99328 G35 Laurie Office Visit 05/15/2015 9:50a [facility] Internal Medicine Gabriela Lynch 68811 H93.12 [place] O[place] Pearson M.D.,FACP Office Visit 12/21/2014 8:40a [facility] Internal Medicine Gabriela Lynch 08170 M79.639 [place] Pearson M.D.,FACP Office Visit 10/17/2014 9:10a [facility] Internal Medicine Gabriela Lynch 84834 V70.0 [place] O[place] Pearson M.D.,FACP 493.00 340 726.32 241.9 Office Visit 04/04/2014 2:30p [facility] Internal Medicine - [place], KIRSTIN [address] 788.99 Office Visit 03/28/2014 8:50a [facility] Internal John Pearson, 99709 590.81 Medicine - [place] Omid Sullivan,FACP 426.82 788.1 Office Visit 03/05/2014 3:30p [facility] Criselda Quintero M.D. 41285 340 Services Of [facility] 268.9 Office Visit 10/11/2013 1:00p [facility] Internal Medicine - Michael Zarate, KIRSTIN [address] 462 [place] Office Visit 10/05/2013 8:30a [facility] Internal Medicine - John Pearson, 64827 V70.0 Adalid Sullivan,FACP 340 268.9 240.9 493.00 724.2 V03.82 V05.3 Office Visit 09/27/2013 1:40p [facility] Darcy Capps, N.P. 30239 724.5 - [place] Office Visit 08/28/2013 4:40p [facility] John Pearson, 80425 493.92 - Adalid Sullivan,FACP 240.0 Office Visit 08/17/2013 11:00a [facility] Darcy Capps, N.P. 43821 709.8 - [place] 787.91 Office Visit 08/01/2013 4:00p [facility] Duyen Hunt N.P. 08162 724.2 - [place] 727.3 Office Visit 06/22/2013 10:00a [facility] Aimee Paulino M.D., 85997 372.05 - [place] FACP Office Visit 05/26/2013 1:00p [facility] Darcy Capps, N.P. 12624 461.9 - [place] 786.2 372.00 Office Visit 05/18/2013 10:20a [facility] Darcy Capps, N.P. 26202 466.0 - [place] Office Visit 04/26/2013 11:20a [facility] Darcy Capps, N.P. 95353 466.0 - [place] Office Visit 02/27/2013 9:10a [facility] John Pearson, 15848 789.61 - Adalid Sullivan,FACP 054.10 Office Visit 02/06/2013 11:30a Angely Quintero M.D. 85928 340 [facility] Office Visit 08/24/2012 3:40p [facility] Darcy Capps, N.P. 59783 995.0 - [place] Office Visit 08/04/2012 2:45p [facility] Criselda Quintero M.D. 46115 340 [facility] Office Visit 01/27/2012 9:00a [facility] Criselda Quintero M.D. 37947 340 [facility] Office Visit 09/14/2011 1:00p [facility] Darcy Capps, N.P. 91828 789.03 - [place] Office Visit 05/15/2011 2:00p [facility] Cris [place], 19722 V70.0 - [place] Laurie,FACP 340 240.9 V06.1 Office Visit 01/30/2011 11:40a DO Not Use [facility] AT [facility], 54955 381.81 [facility] Office Visit 07/04/2010 2:30p DO Not Use [facility] AT Duyen Hunt, N.P. 72900 477.9 [facility] Office Visit 02/05/2010 3:40p DO Not Use [facility], 84273 V70.0 [place] Sullivan,FACP 340 719.44 599.0 Office Visit 07/05/2009 9:40a DO Not Use [facility], 48406 462 [facility] Office Visit 06/28/2009 9:00a DO Not Use [facility], 16373 V70.0 [place] Sullivan,FACP 340 268.9 240.9 Office Visit 04/25/2009 9:30a DO [place] [address] 719.41 [facility] Office Visit 09/05/2008 1:40p DO Not Use [facility], 03839 340 [facility] Laurie,FACP 346.10 Office Visit 05/15/2008 1:40p DO Not Use [facility], 09173 340 [facility] Laurie,FACP 240.9 Office Visit 05/02/2008 2:00p DO Not Use [facility], 56374 386.19 Kyle Sullivan,FACP 340 Office Visit 03/15/2008 3:20p DO Not Use [facility] AT John Pearson, 72298 340 Kyle Sullivan,FACP 356.8 780.79 Plan of Care Future Appointment(s):11/01/2017 9:45 am - Armando Healy MD at [facility]11/05/2017 1:00 pm - Melisa Gonsalves MD at [facility]10/14/2017 1:00 pm - John Pearson M.D.,FACP at [facility] - [address]09/27/2017 - Armando Healy, [id number] Sprain of other ligament of left ankle, initial encounterNew Xrays:CT Extremity Lower Left WoFollow up:Follow Up: will call after CT for results
--- NOTE | 2017-10-20 21:05 | UC ---
Throat Pain/Nasal Pillo HPI - HPI Summary HPI Summary: 47 year old female with history of MS presents with 6 day history of sore throat. Associated with nasal congestion, clear nasal discharge, mild sinus pressure, and non-productive cough. Denies fever, chills, ear pain or drainage, chest pain, SOB, abdominal pain, nausea or vomiting. Has been using saline rinses and fluticasone with some improvement. Concerned because she noticed some white spot in throat. - History of Current Complaint Chief Complaint: UCRespiratory Stated Complaint: THROAT PAIN Time Seen by Provider: 10/20/17 20:26 Hx Obtained From: Patient Hx Last Menstrual Period: 10/15/17 ?: No Onset/Duration: Gradual Onset Severity: Mild Pain Intensity: 5 Cough: Nonproductive Associated Signs & Symptoms: Positive: Sinus Discomfort, Nasal Discharge. Negative: Dysphagia, Drooling, Wheezing, Hoarseness, Fever, Vomiting, Rash - Allergies/Home Medications Allergies/Adverse Reactions: Allergies Allergy/AdvReac Type Severity Reaction Status Date / Time azithromycin Allergy Severe Rash, Verified 10/20/17 19:43 DIFFICULTY BREATHING sulfamethoxazole Allergy Severe FLUSHING Verified 10/20/17 19:43 [From Bactrim] RASH, CHILLS, JOINT PAIN trimethoprim [From Bactrim] Allergy Severe FLUSHING Verified 10/20/17 19:43 RASH, CHILLS, JOINT PAIN bee venom protein (honey bee) Allergy Intermediate Anaphylatic Verified 19:43 Shock SURGICAL TAPE Allergy RED RASH Uncoded 10/20/17 19:43 Home Medications: Home Medications Aloe Vera 1 tab PO DAILY 10/20/17 [History Confirmed 10/20/17] Lactobacil 2-S.thermo-Bifido 1 [Vsl#3 Packet] 1 cap PO DAILY 10/20/17 [History Confirmed 10/20/17] Ocrelizumab [Ocrevus] 1 dose IV SEE INSTRUCTIONS 10/20/17 [History Confirmed ] Quercitin 2 tab PO BID 10/20/17 [History] PMH/Surg Hx/FS Hx/Imm Hx Previously Healthy: Yes Respiratory History: Asthma Neurological History: Other Other Neurological History: MS - Surgical History Surgical History: Yes Surgery Procedure, Year, and Place: 1986 TONSILLECTOMY, [place]. 2013 THYROID BIOPSY. Gallbladder - Family History Family History: Noncontributory - Social History Occupation: Employed Full-time Lives: With Family Alcohol Use: None Alcohol Amount: 1-2 Substance Use Type: None Smoking Status (MU): Never Smoked Tobacco - Immunization History Most Recent Influenza Vaccination: Review of Systems Constitutional: Negative Skin: Negative Eyes: Negative ENT: Sore Throat, Nasal Discharge, Sinus Congestion Respiratory: Negative Cardiovascular: Negative Gastrointestinal: Negative Is Patient Immunocompromised?: Yes - On ocrelizumab for MS All Other Systems Reviewed And Are Negative: Yes Physical Exam Triage Information Reviewed: Yes Appearance: Well-Appearing, No Pain Distress, Well-Nourished Vital Signs: Initial Vital Signs Temp 98.7 F 10/20/17 19:39 Pulse 80 10/20/17 19:39 Resp 12 10/20/17 19:39 BP 114/71 10/20/17 19:39 Pulse Ox 98 10/20/17 19:39 Vital Signs Reviewed: Yes Eyes: Positive: Conjunctiva Clear. Negative: Discharge ENT: Positive: Pharyngeal erythema - Mild with minimal exudate. Tonsils surgically absent., Nasal congestion, Nasal drainage, TMs normal, Uvula midline. Negative: Trismus, Muffled voice, Hoarse voice, Sinus tenderness Neck: Positive: Supple, Nontender, No Lymphadenopathy Respiratory: Positive: Lungs clear, Normal breath sounds, No respiratory distress Cardiovascular: Positive: RRR, No Murmur Neurological: Positive: Alert Skin Exam: Normal Throat Pain/Nasal Course/Dx - Course Course Of Treatment: 47 year old female with history of MS presents with 6 day history of sore throat with URI symptoms. Afebrile. Rapid strep negative. Symptoms likely of viral origin. Will continue with symptomatic treatment. Patient to follow up with PCP if symptoms persist or worsen. - Differential Dx/Diagnosis Differential Diagnosis/HQI/PQRI: Mononucleosis, Pharyngitis, Sinusitis, URI Provider Diagnoses: Viral URI Discharge - Sign-Out/Discharge Documenting (check all that apply): Patient Departure All imaging exams completed and their final reports reviewed: No Studies - Discharge Plan Condition: Stable Disposition: HOME Patient Education Materials: Upper Respiratory Infection (ED) Referrals: John Pearson MD [Primary Care Provider] - 5 Days (If no improvement in symptoms.) Additional Instructions: The rapid strep test in the clinic today was negative. His symptoms are consistent with a viral upper respiratory infection. Viral infections do not respond to antibiotics and treatment typically consists of treating the symptoms. Viral infections typically run their course over 7-10 days. Continue doing saline rinses twice a day. Continue using your fluticasone (Flonase) nasal spray as directed. I would recommend trying to use the Sudafed 24-hour for the nasal congestion. You may be less likely to experience side effects from the 24-hour formula. Try salt water gargles several times a day for the sore throat. Take [id number] acetaminophen (Tylenol) according to directions for any aches or pains. Follow-up with your primary care provider in 5 days if you have no improvement in your symptoms. Seek immediate medical attention if you have fever greater than 100.5 F, are unable to swallow, have chest pain, shortness of breath, wheezing, or any worsening of your symptoms. - Billing Disposition and Condition Condition: STABLE Disposition: Home
== END 2017-10-20 21:10 | disposition home or self-care (01) ==
LOC: UCEAST 19:33
DX: J02.9 Acute pharyngitis, unspecified (principal); B97.89 Other viral agents as the cause of diseases classified elsewhere; J45.909 Unspecified asthma, uncomplicated; G35 Multiple sclerosis; Z88.2 Allergy status to sulfonamides; Z88.1 Allergy status to other antibiotic agents; Z91.09 Other allergy status, other than to drugs and biological substances; Z91.030 Bee allergy status
CPT/HCPCS: 87651; 99211; G0463

== ENCOUNTER 2018-02-15 14:34 | Emergency (ER) | payer OTHER ==
--- OUTSIDE RECORDS SUMMARY | 2018-02-15 14:40 | XMS REPORT | Continuity of Care Document ---
:1970 External Reference #:[id number] Author Name Sandra Medina M.D. Address [address] [place] [address] Care Team Providers Name Role Phone Zeke Pearson M.D. Care Team Information Rn Clinical Appeals Unavailable Zeke Pearson M.D. Primary Care Physician Unavailable Payers Type Date Identification Numbers Payment Provider Subscriber Effective: Policy Number: [id number] [facility] Juan Reyes 2013 Group Number: [id number] [id number] Group Name: [facility] Choice [employer] [facility] [place] [address] PayID: [id number] Advance Directives Description No Information Available Problems Date Description Provider Status Onset: 05/18/2013 Toxic effect of venom Sandra Medina M.D. Active Onset: 05/18/2013 Allergic rhinitis due to pollen Sandra Medina M.D. Active Onset: 05/18/2013 Allergic rhinitis Sandra Medina M.D. Active Onset: 05/18/2013 Allergy Sandra Medina M.D. Active Onset: 12/15/2013 Allergic condition Sandra Medina M.D. Active Onset: 05/23/2014 Extrinsic asthma without status Sandra Medina M.D. Active asthmaticus Onset: 01/21/2015 Cough Marcin Au M.D. Active Onset: 06/24/2015 Exacerbation of mild persistent CelsaJAMES LivingstonP-C Active asthma Onset: 06/24/2015 Allergic rhinitis due to animals JAMES AvilaP-C Active Onset: 07/19/2015 Uncomplicated moderate persistent Sandra Medina M.D. Active asthma Onset: 07/19/2015 Toxic effect of venom of bees, Sandra Medina M.D. Active accidental (unintentional), subsequent encounter Onset: 04/02/2016 Body mass index 20-24 - normal Jeremiah Christian M.D. Active Onset: 04/02/2016 Acute sinusitis Jeremiah Christian M.D. Active Onset: 09/18/2016 Uncomplicated moderate persistent Sandra Medina M.D. Active asthma Family History Date Family Member(s) Problem(s) Comments General Seasonal Allergies General Bronchitis General Diabetes pat GF General Hypertension General Breast Cancer mat GM General Osteoporosis mat GM Father Bronchitis Mother Seasonal Allergies Mother Hypertension Mother Osteoporosis Mother lung nodules First Brother Hypertension Social History Type Date Description Comments Sex Unknown Marital Status Legal Status: Lives With Spouse Home Environment 20+Year Old Home, 2 Years In Current Home Home Environment Uses air director process in bedroom Home Environment Has a window air conditioner Home Environment Unfinished Basement Home Environment The basement is damp and dehumidifier used Home Environment Cotton Comforter Home Environment Mattress is 3 years old Home Environment Mattress is encased in an allergy proof case Home Environment Regular Mattress Home Environment Pillows are rubber (foam) Home Environment Pillows are encased in an allergy proof case Home Environment Uses a dehumidifier Home Environment There are draperies in not in bedroom the home Home Environment The home is christine Home Environment The floors are wood Home Environment Radiator Heat Home Environment Uses natural gas heating Home Environment [place] Home Environment Water Source: [facility] Home Environment drinking water [facility] Smoke-Free Home is smoke-free Smoke-Free Work is smoke-free Pets 2 cats Pets Negative For Animals sleep in bedroom 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, IC ETOH Use Occasionally consumes alcohol Tobacco Use Start: Unknown Patient has never smoked Recreational Drug Use Former Drug User Smoking Status Reviewed: 12/11/16 Patient has never smoked Allergies, Adverse Reactions, Alerts Date Description Reaction Status Severity Comments 12/15/2013 Azithromycin Active Rash 01/29/2017 Bactrim Urticaria Active Medications Medication Date Status Form Strength Qnty SIG Indications Ordering Provider Symbicort 02/04/ Active Aerosol 80-4.5mcg 3unit 1 puffs Sandra Alas 2017 /Act s inhalation Carol, twice a day M.DChago Proair 09/18/ Active Aerosol 108(90Bas 1unit 2 puffs J45.40 Ciera Respiclick 2016 e) s every 4 [place], mcg/Act hours as UNDERPRESSER HAND-C needed for cough, wheeze or shortness of breath Dulera 09/18/ Active Aerosol 200-5mcg/ 39gm Inhale 2 J45.40 [facility] 2016 Act Puffs By Antonio Medina Two M.D. Times Daily Epipen 2-Zane 12/19/ Active Solution 0.3mg/0.3 2unit use as J30.9 [facility] 2015 Auto-Inject ML s directed Laurie Medina Vitamin D / Active Tablets 5000Unit Unknown 0000 Magnesium / Active Tablets 200mg Unknown Citrate 0000 Lunesta / Active Tablets 5mg prn Unknown 0000 Flonase / Active Suspension 50mcg/Act 1 spray Unknown Allergy Relief 0000 each nostril everyday Zyrtec Allergy / Active Tablets 10mg 1 every day Unknown 0000 prn Famciclovir / Active Tablets 250mg [place], 0000 Laurie Vincent Ocrevus / Active Solution 300mg/10M Unknown 0000 L Valacyclovir / Active Tablets 1gm Unknown HCL 0000 Quelicin / Active Solution 20mg/ml 2 tabs BiD Unknown 0000 Aloe Vera / Active Capsules 25mg 3 caps TiD Unknown 0000 Heparin Sodium / Active Solution [id number] Instill 1 Unknown (Porcine) 0000 /ML ML Into The Bladder as Needed For Bladder Pain - Maximum Daily Dose Of 1 ML Lidocaine HCL / Active Solution 1% Instill Unknown (PF) 0000 Into Bladder as Needed For Bladder Pain But No More Than Once Per Day Macedonian Herb / Active Unknown 0000 Medications Administered in Office Medication Date Status Form Strength Qnty SIG Indications Ordering Provider Celestone/Gian Administered Injection Ciera isone 017 [place], [id number] 1 UNDERPRESSER HAND-C cc Injection Administered Injection Allergy 013 Injection Immunizations CPT Code Status Date Vaccine Lot # 53888 Given 11/22/2013 Influenza Vaccine 65721 Given 10/23/2013 Influenza Vaccine 75513 Given 09/22/2013 Pneumococcal Vaccine 51330 Given Unknown Pneumococcal Vaccine 60275 Given Unknown Pneumococcal Vaccine 43518 Given Unknown Influenza Vaccine 05611 Given Unknown Influenza Vaccine 54603 Given Unknown Influenza Vaccine 89890 Given Unknown Influenza Vaccine 74497 Given Unknown Influenza Vaccine 97898 Given Unknown Influenza Preservative Free. 3+ Years Of Age Vital Signs Date Vital Result Comment 02/04/2018 11:34am Height 63 inches 5'3" Weight 138.00 lb Weight 62.597 kg Respiratory Rate 20 /min Heart Rate 89 /min O2 % BldC Oximetry 98 % BP Systolic 94 mmHg BP Diastolic 60 mmHg Asthma Control Test 25 Fractional Exhaled Nitric Oxide 8 BMI (Body Mass Index) 24.4 kg/m2 12/08/2017 11:06am Height 63 inches 5'3" Weight 131.00 lb Weight 59.422 kg Respiratory Rate 20 /min Heart Rate 71 /min O2 % BldC Oximetry 98 % BP Systolic 99 mmHg BP Diastolic 59 mmHg Asthma Control Test 25 Fractional Exhaled Nitric Oxide 10 BMI (Body Mass Index) 23.2 kg/m2 07/30/2017 11:05am Height 63 inches 5'3" Weight 138.00 lb Weight 62.597 kg Respiratory Rate 18 /min Heart Rate 80 /min O2 % BldC Oximetry 98 % BP Systolic 90 mmHg BP Diastolic 54 mmHg Asthma Control Test 24 BMI (Body Mass Index) 24.4 kg/m2 04/29/2017 4:04pm Height 63 inches 5'3" Weight 136.00 lb Weight 61.690 kg Heart Rate 77 /min O2 % BldC Oximetry 98 % BP Systolic 111 mmHg BP Diastolic 73 mmHg Asthma Control Test 16 BMI (Body Mass Index) 24.1 kg/m2 01/29/2017 9:59am Height 63 inches 5'3" Weight 138.00 lb Weight 62.597 kg Respiratory Rate 16 /min Heart Rate 88 /min O2 % BldC Oximetry 98 % BP Systolic 104 mmHg BP Diastolic 73 mmHg Asthma Control Test 24 BMI (Body Mass Index) 24.4 kg/m2 12/11/2016 8:44am Height 63 inches 5'3" Weight 138.00 lb Weight 62.597 kg Respiratory Rate 16 /min Heart Rate 78 /min Body Temperature 97.2 F O2 % BldC Oximetry 98 % BP Systolic 104 mmHg BP Diastolic 61 mmHg Asthma Control Test 21 BMI (Body Mass Index) 24.4 kg/m2 11/20/2016 9:58am Height 63 inches 5'3" Weight 138.00 lb Weight 62.597 kg Respiratory Rate 18 /min Heart Rate 67 /min O2 % BldC Oximetry 99 % BP Systolic 107 mmHg BP Diastolic 65 mmHg Asthma Control Test 18 BMI (Body Mass Index) 24.4 kg/m2 11/12/2016 1:46pm Height 63 inches 5'3" Weight 137.00 lb Weight 62.143 kg Respiratory Rate 20 /min Heart Rate 72 /min Body Temperature 98.6 F O2 % BldC Oximetry 98 % BP Systolic 107 mmHg BP Diastolic 67 mmHg Asthma Control Test 12 BMI (Body Mass Index) 24.3 kg/m2 10/23/2016 9:21am Height 63 inches 5'3" Weight 139.00 lb Weight 63.050 kg Respiratory Rate 16 /min Heart Rate 71 /min O2 % BldC Oximetry 98 % BP Systolic 104 mmHg BP Diastolic 66 mmHg Asthma Control Test 24 BMI (Body Mass Index) 24.6 kg/m2 09/18/2016 3:42pm Height 63 inches 5'3" Weight 141.00 lb Weight 63.958 kg Respiratory Rate 16 /min Heart Rate 73 /min O2 % BldC Oximetry 98 % BP Systolic 106 mmHg BP Diastolic 59 mmHg Asthma Control Test 14 BMI (Body Mass Index) 25.0 kg/m2 04/02/2016 1:12pm Height 63 inches 5'3" Weight 130.00 lb Weight 58.968 kg Respiratory Rate 20 /min Heart Rate 70 /min Body Temperature 99.7 F O2 % BldC Oximetry 97 % BP Systolic 98 mmHg BP Diastolic 59 mmHg Asthma Control Test 24 BMI (Body Mass Index) 23.0 kg/m2 12/20/2015 8:43am Height 63 inches 5'3" Weight 130.56 lb Weight 59.223 kg Respiratory Rate 16 /min Heart Rate 70 /min O2 % BldC Oximetry 99 % BP Systolic 98 mmHg BP Diastolic 59 mmHg Asthma Control Test 25 BMI (Body Mass Index) 23.1 kg/m2 09/13/2015 3:44pm Height 63 inches 5'3" Weight 134.00 lb Weight 60.782 kg Respiratory Rate 20 /min Heart Rate 69 /min O2 % BldC Oximetry 98 % BP Systolic 120 mmHg BP Diastolic 74 mmHg Asthma Control Test 24 BMI (Body Mass Index) 23.7 kg/m2 07/19/2015 8:49am Height 63 inches 5'3" Weight 136.00 lb Weight 61.690 kg Respiratory Rate 16 /min Heart Rate 81 /min O2 % BldC Oximetry 98 % BP Systolic 92 mmHg BP Diastolic 63 mmHg Asthma Control Test 7 BMI (Body Mass Index) 24.1 kg/m2 06/24/2015 3:38pm Height 63 inches 5'3" Weight 135.00 lb Weight 61.236 kg Respiratory Rate 16 /min Heart Rate 71 /min Body Temperature 98.5 F O2 % BldC Oximetry 98 % BP Systolic 109 mmHg BP Diastolic 62 mmHg BMI (Body Mass Index) 23.9 kg/m2 01/21/2015 5:24pm Height 63.25 inches 5'3.25" Weight 145.00 lb Weight 65.772 kg Respiratory Rate 20 /min Heart Rate 62 /min O2 % BldC Oximetry 98 % BP Systolic 129 mmHg BP Diastolic 75 mmHg BMI (Body Mass Index) 25.5 kg/m2 10/25/2014 9:12am Height 63 inches 5'3" Weight 140.00 lb Weight 63.504 kg Respiratory Rate 16 /min Heart Rate 73 /min O2 % BldC Oximetry 98 % BP Systolic 100 mmHg BP Diastolic 55 mmHg Asthma Control Test 25 BMI (Body Mass Index) 24.8 kg/m2 08/17/2014 3:40pm Height 63 inches 5'3" Weight 143.00 lb Weight 64.865 kg Respiratory Rate 16 /min Heart Rate 72 /min O2 % BldC Oximetry 98 % BP Systolic 106 mmHg BP Diastolic 58 mmHg Asthma Control Test 23 BMI (Body Mass Index) 25.3 kg/m2 05/23/2014 3:05pm Height 63 inches 5'3" Weight 141.00 lb Weight 63.958 kg Respiratory Rate 20 /min Heart Rate 63 /min O2 % BldC Oximetry 98 % BP Systolic 102 mmHg BP Diastolic 64 mmHg Asthma Control Test 10 BMI (Body Mass Index) 25.0 kg/m2 03/09/2014 11:09am Height 63 inches 5'3" Weight 135.00 lb Weight 61.236 kg Respiratory Rate 16 /min Heart Rate 76 /min O2 % BldC Oximetry 98 % BP Systolic 112 mmHg BP Diastolic 68 mmHg Asthma Control Test 21 BMI (Body Mass Index) 23.9 kg/m2 2014 3:45pm Height 63 inches 5'3" Weight 135.00 lb Weight 61.236 kg Respiratory Rate 16 /min Heart Rate 64 /min O2 % BldC Oximetry 99 % BP Systolic 112 mmHg BP Diastolic 72 mmHg Asthma Control Test 21 BMI (Body Mass Index) 23.9 kg/m2 01/26/2014 10:27am Height 63 inches 5'3" Weight 135.00 lb Weight 61.236 kg Respiratory Rate 16 /min Heart Rate 74 /min O2 % BldC Oximetry 98 % BP Systolic 100 mmHg BP Diastolic 65 mmHg Asthma Control Test 15 BMI (Body Mass Index) 23.9 kg/m2 12/15/2013 11:44am Height 63.5 inches 5'3.50" Weight 135.00 lb Weight 61.236 kg Respiratory Rate 16 /min Heart Rate 80 /min O2 % BldC Oximetry 99 % BP Systolic 111 mmHg BP Diastolic 72 mmHg Asthma Control Test 25 BMI (Body Mass Index) 23.5 kg/m2 12/09/2012 11:42am Height 63.5 inches 5'3.50" Weight 137.00 lb Weight 62.143 kg Respiratory Rate 16 /min Heart Rate 62 /min O2 % BldC Oximetry 99 % BP Systolic 102 mmHg BP Diastolic 70 mmHg BMI (Body Mass Index) 23.9 kg/m2 10/21/2012 9:11am Height 63.5 inches 5'3.50" Weight 137.00 lb Weight 62.143 kg Respiratory Rate 16 /min Heart Rate 85 /min O2 % BldC Oximetry 98 % BP Systolic 90 mmHg BP Diastolic 60 mmHg BMI (Body Mass Index) 23.9 kg/m2 10/14/2012 9:31am Height 63.5 inches 5'3.50" Weight 137.00 lb Weight 62.143 kg Respiratory Rate 14 /min Heart Rate 81 /min O2 % BldC Oximetry 98 % BP Systolic 101 mmHg BP Diastolic 69 mmHg BMI (Body Mass Index) 23.9 kg/m2 10/07/2012 9:28am Height 63.5 inches 5'3.50" Weight 138.00 lb Weight 62.597 kg Respiratory Rate 16 /min Heart Rate 73 /min O2 % BldC Oximetry 99 % BP Systolic 104 mmHg BP Diastolic 60 mmHg BMI (Body Mass Index) 24.1 kg/m2 09/09/2012 9:19am Height 63.5 inches 5'3.50" Weight 138.00 lb Weight 62.597 kg Respiratory Rate 16 /min Heart Rate 85 /min O2 % BldC Oximetry 98 % BP Systolic 110 mmHg BP Diastolic 70 mmHg BMI (Body Mass Index) 24.1 kg/m2 Results Test Date Facility Test Result H/L Range Note Laboratory test 07/08/2014 [facility] Urine Culture SEE RESULT [address] [place] [address] [phone] Laboratory test 07/08/2014 [facility] Urine Culture SEE RESULT [address] [place] [address] [phone] Laboratory test 03/30/2014 [facility] Blue Mussel <0.35 kU/L N [address] [place] [address] [phone] Clam Allergen IgE <0.35 kU/L N 4 Codfish Allergen IgE <0.35 kU/L N 5 Crab Allergen IgE <0.35 kU/L N 6 Lobster Allergen IgE <0.35 kU/L N 7 Oyster Allergen IgE <0.35 kU/L N 8 [place] Allergen IgE <0.35 kU/L N 9 Scallop Allergen IgE <0.35 kU/L N 10 Shrimp Allergen IgE <0.35 kU/L N 11 Laboratory test 09/12/2012 [facility] Honey Bee <0.35 kU/L [address] [place] [address] [phone] Paper Wasp Allergen IgE <0.35 kU/L 13 Soybean Allergen IgE <0.35 kU/L 14 White-Faced Hornet Allerg IgE <0.35 kU/L 15 Yellow Hornet Allergen IgE <0.35 kU/L 16 Yellow Jacket Allergen IgE <0.35 kU/L 17 Tryptase 4.8 ng/mL <11.5 18 Vitamin D, 25 09/12/2012 [facility] 25-Hydroxy Vitamin <4.0 ng/ mL Hydroxy [address] [place] [address] [phone] 25-Hydroxy Vitamin D3 61 ng/mL 25-Hydroxy Vitamin D Total 61 ng/mL 19 Laboratory test 09/12/2012 [facility] Ferritin 19 ng/mL 11- [address] [place] [address] [phone] Comp Metabolic Panel 09/12/2012 [facility] Sodium 141 mmol/L 133-[address] [place] [address] [phone] Potassium 3.8 mmol/L 3.5-5.0 Chloride 108 mmol/L [...] Egfr Non- 91.8 >60 Egfr 118.0 >60 20 1 SEE RESULT BELOW Name: RUSSELL VYAS : [address]: Priyank Recinos MD Acct: [id number] Unit: [id number] AGE: 44 Location: [facility] Re07/08/14 SEX: F Status: DEP ER SPEC: [id number] AIDE: 07/08/[address] [facility] [address]: Priyank Recinos MD REQ: [id number] RECD: 07/09/14 STATUS: JESICA WHITTINGTON DR: John Spence RPA-C _ SOURCE: URINE SPDESC: ORDERED: Urine Culture Procedure Result Verified Site Urine Culture Final 07/11/14- 0833 ML Organism 1 ESCHERICHIA COLI [place] Count >100,000 (Many) CFU/ML Organism 2 NORMAL KAREN [place] Count 50-75,000 (Many) CFU/ML 1. ESCHERICHIA COLI [...] antibiotic reporting. * ML - MAIN LAB ([facility]) . END OF REPORT * ML=Testing performed at Main Lab DEPARTMENT OF PATHOLOGY, [address] [place] [address] Nuon Birmingham M.D. Director [facility] # [id number] 2 SEE RESULT BELOW Name: ASAELRUSSELL : [address]: Priyank Recinos MD Acct: [id number] Unit: [id number] AGE: 44 Location: [facility] Re07/08/14 SEX: F Status: DEP ER SPEC: [id number] AIDE: 07/08/[address] [facility] [address]: Priyank Recinos MD REQ: [id number] RECD: 07/09/14 STATUS: RES ELAINE DR: John Spence RPA-C _ SOURCE: URINE SPDESC: ORDERED: Urine Culture Procedure Result Verified Site Urine Culture Preliminary 07/10/14- 1146 ML Organism 1 ESCHERICHIA COLI [place] Count >100,000 (Many) CFU/ML * ML - MAIN LAB ([facility]) . END OF REPORT * ML=Testing performed at Main Lab DEPARTMENT OF PATHOLOGY, [address] [place] [address] Nuno Birmingham M.D. Director [facility] # [id number] 3 Class 0 (Negative <0.35) Test Performed by: [place] [address] Media Relations Coordinator: Matt Yang M.D. 4 Class 0 (Negative <0.35) Test Performed by: [place] [address] Media Relations Coordinator: Matt Yang M.D. 5 Class 0 (Negative <0.35) Test Performed by: [place] [address] Media Relations Coordinator: Matt Yang M.D. 6 Class 0 (Negative <0.35) Test Performed by: [place] [address] Media Relations Coordinator: Matt Yang M.D. 7 Class 0 (Negative <0.35) Test Performed by: [place] [address] Media Relations Coordinator: Matt Yang M.D. 8 Class 0 (Negative <0.35) Test Performed by: [place] [address] Media Relations Coordinator: Matt Yang M.D. 9 Class 0 (Negative <0.35) Test Performed by: [place] [address] Media Relations Coordinator: Matt Yang M.D. 10 Class 0 (Negative <0.35) Test Performed by: [place] [address] Media Relations Coordinator: Matt Yang M.D. 11 Class 0 (Negative <0.35) Test Performed by: [place] [address] Media Relations Coordinator: Matt Yang M.D. 12 Class 0 (Negative <0.35) 13 Class 0 (Negative <0.35) 14 Class 0 (Negative <0.35) Test Performed by: [place] [address] Media Relations Coordinator: Phan Ordaz III, M.D. 15 Class 0 (Negative <0.35) Test Performed by: [place] [address] Media Relations Coordinator: Phan Ordaz III, M.D. 16 Class 0 (Negative <0.35) 17 Class 0 (Negative <0.35) 18 Test Performed by: [place] [address] Media Relations Coordinator: Phan Ordaz III, M.D. 19 -- REFERENCE VALUE -- 25-HYDROXY D TOTAL (D2+D3) Optimum levels in the normal population are 25-80 Test Performed by: [place] [address] Media Relations Coordinator: Phan Ordaz III, M.D. 20 Because ethnic data is not always readily [...] 15-29 5 Kidney failure <15 (or dialysis) Procedures Date Code Description Status 02/04/2018 48756 Nitric Oxide Gas Determination Completed 02/04/2018 33329 Pre PFT Completed 12/08/2017 52788 Nitric Oxide Gas Determination Completed 12/08/2017 88128 Pre PFT Completed 07/30/2017 73270 Pre PFT Completed 04/29/2017 01242 Pre PFT Completed 01/29/2017 40518 Pre PFT Completed 11/20/2016 56031 Pre PFT Completed 10/23/2016 64250 Pre PFT Completed 09/18/2016 34503 Pre PFT Completed 12/20/2015 90184 Pre PFT Completed 09/13/2015 44833 Pre PFT Completed 07/19/2015 68556 Pre PFT Completed 06/24/2015 64808 Ippb Completed 10/25/2014 86530 Pre PFT Completed 03/09/2014 63900 Pulmonary Function Test Completed 11/04/2012 93657 Injection Completed 11/02/2012 12860 Extract Stings-Three Completed 10/14/2012 72471 Skin Tests Id Completed 10/14/2012 87202 Misc Tests 11-15 Completed 10/14/2012 95291 Skin Test Scratch # Of Units ____ Completed 10/14/2012 29114 Oxygen Level - Pulse Oximiter Completed 10/07/2012 89680 Skin Tests Id Completed 10/07/2012 98144 Oxygen Level - Pulse Oximiter Completed 09/09/2012 65820 Oxygen Level - Pulse Oximiter Completed Encounters Type Date Location Provider Dx Diagnosis Office Visit 02/04/2018 Nan Medina J45.40 Moderate persistent 11:40a M.D. asthma, uncomplicated J30.89 Other allergic rhinitis J30.2 Other seasonal allergic rhinitis Office Visit 12/08/2017 11:00a Nan Medina J45.40 Moderate persistent M.D. asthma, uncomplicated J30.89 Other allergic rhinitis J30.2 Other seasonal allergic rhinitis Office Visit 07/30/2017 11:00a Nan Medina J45.40 Moderate persistent M.D. asthma, uncomplicated J30.89 Other allergic rhinitis J30.2 Other seasonal allergic rhinitis Office Visit 04/29/2017 4:00p Darwin Tompkins45.40 Moderate persistent UNDERPRESSER HAND-C asthma, uncomplicated J30.89 Other allergic rhinitis J30.9 Allergic rhinitis, unspecified J30.2 Other seasonal allergic rhinitis J01.90 Acute sinusitis, unspecified Office Visit 01/29/2017 10:00a Darwin Tompkins45.40 Moderate persistent UNDERPRESSER HAND-C asthma, uncomplicated J30.89 Other allergic rhinitis J30.9 Allergic rhinitis, unspecified J30.2 Other seasonal allergic rhinitis Office Visit 12/11/2016 8:40a Nan Au M.D. R05 Cough J01.90 Acute sinusitis, unspecified J45.40 Moderate persistent asthma, uncomplicated Office Visit 11/20/2016 10:00a Darwin Tompkins45.40 Moderate persistent UNDERPRESSER HAND-C asthma, uncomplicated J01.90 Acute sinusitis, unspecified J30.89 Other allergic rhinitis J30.9 Allergic rhinitis, unspecified Office Visit 11/12/2016 1:40p Darwin Tompkins45.40 Moderate persistent UNDERPRESSER HAND-C asthma, uncomplicated J01.90 Acute sinusitis, unspecified J30.89 Other allergic rhinitis J30.9 Allergic rhinitis, unspecified Office Visit 10/23/2016 9:20a Nan Taylor Z23 Encounter for UNDERPRESSER HAND-C immunization J45.40 Moderate persistent asthma, uncomplicated J30.9 Allergic rhinitis, unspecified T63.441D Toxic effect of venom of bees, accidental, subs J30.89 Other allergic rhinitis Office Visit 09/18/2016 3:40p Nan Medina, J45.40 Moderate persistent M.D. asthma, uncomplicated J30.9 Allergic rhinitis, unspecified T63.441D Toxic effect of venom of bees, accidental, subs Office Visit 04/02/2016 1:20p Duartekaitlynn Christian, J01.90 Acute sinusitis, M.D. unspecified J30.89 Other allergic rhinitis J45.40 Moderate persistent asthma, uncomplicated Z68.23 Body mass index (BMI) 23.0-23.9, adult Office Visit 12/20/2015 8:40a Nan Medina, J30.9 Allergic rhinitis, M.D. unspecified J30.2 Other seasonal allergic rhinitis J30.89 Other allergic rhinitis J45.40 Moderate persistent asthma, uncomplicated T63.441D Toxic effect of venom of bees, accidental, subs Office Visit 09/13/2015 3:40p Nan Medina, T63.441D Toxic effect of M.D. venom of bees, accidental, subs J45.40 Moderate persistent asthma, uncomplicated J30.9 Allergic rhinitis, unspecified Office Visit 07/19/2015 8:40a Nan Medina, J45.40 Moderate persistent M.D. asthma, uncomplicated J30.2 Other seasonal allergic rhinitis J30.89 Other allergic rhinitis T63.441D Toxic effect of venom of bees, accidental, subs Office Visit 06/24/2015 3:20p Nan Vital, J45.31 Mild persistent asthma UNDERPRESSER HAND-C with (acute) exacerbation J30.1 Allergic rhinitis due to pollen J30.81 Allergic rhinitis due to animal (cat) (dog) hair and dander J30.89 Other allergic rhinitis J30.2 Other seasonal allergic rhinitis Z68.24 Body mass index (BMI) 24.0-24.9, adult Office Visit 01/21/2015 5:20p Nan Au M.D. R05 Cough Office Visit 10/25/2014 9:00a Duartekaitlynn Velásquez, 989.5 Toxic Effect Of PH.D, RPA-C Venom 477.8 Rhinitis Allergic Due To Other Allergen 477.0 Rhinitis Allergic Due To Pollen V85.1 Body Mass Index Between 19-24 Adult Office Visit 08/17/2014 3:40p Duarte Sandrarustam Medina, 477.0 Rhinitis Allergic M.D. Due To Pollen 477.8 Rhinitis Allergic Due To Other Allergen 989.5 Toxic Effect Of Venom 493.00 Asthma Extrinsic Unspecified V85.21 Body Mass Index 25.0-25.9 Adult Office Visit 05/23/2014 3:00p Duarte Sandra Medina, 477.0 Rhinitis Allergic M.D. Due To Pollen 477.8 Rhinitis Allergic Due To Other Allergen 989.5 Toxic Effect Of Venom 493.00 Asthma Extrinsic Unspecified Office Visit 03/09/2014 11:00a Duarte Temitope Welch, 477.0 Rhinitis Allergic Due RPA-C To Pollen 477.8 Rhinitis Allergic Due To Other Allergen 989.5 Toxic Effect Of Venom 493.00 Asthma Extrinsic Unspecified V15.04 Allergy To Seafood Office Visit 2014 3:40p Duarte Temitope Welch, 477.0 Rhinitis Allergic Due RPA-C To Pollen 477.8 Rhinitis Allergic Due To Other Allergen 989.5 Toxic Effect Of Venom 493.00 Asthma Extrinsic Unspecified Office Visit 01/26/2014 10:20a Duarte Temitope Welch, 477.0 Rhinitis Allergic Due RPA-C To Pollen 477.8 Rhinitis Allergic Due To Other Allergen 989.5 Toxic Effect Of Venom 493.00 Asthma Extrinsic Unspecified Office Visit 12/15/2013 11:20a Duarte Sandra Medina, 989.5 Toxic Effect Of M.D. Venom 995.3 Allergy Unspec Office Visit 12/09/2012 11:40a Nan Medina 989.5 Toxic Effect Of M.D. Venom Office Visit 10/07/2012 9:40a Duarte Temitope Welch, RPA-C 995.3 Allergy Unspec 477.0 Rhinitis Allergic Due To Pollen 477.8 Rhinitis Allergic Due To Other Allergen 989.5 Toxic Effect Of Venom Office Visit 09/09/2012 9:00a Nan Medina M.D. 995.3 Allergy Unspec Plan of Treatment Future Appointment(s):06/03/2018 11:00 am - Sandra Medina M.D. at [email or web address] - Sandra Medina M.D.J45.40 Moderate persistent asthma, clejrbcyvopbkL14.89 Other allergic ggeidgnnR81.2 Other seasonal allergic rhinitisFollow up:3-4 months, CHECK-UP/FOLLOW UP VISIT: Continued management of patient's medical care.Recommendations:Venom Avoidance Continue to carry EpiPen at all times. pre-PFT today [place] reviewed stop Dulera 100/5 -stop Symbicort 80/ 4.5 1 puff twice daily; rinse mouth after use (change made as required by insurance) -will consider reduction to [place] in the spring. -use Proair 2 puffs every 4 hours as needed for cough, shortness of breath or chest tightness ; call if using consistently >2x/week use Zyrteconce daily as needed
[2018-02-15 14:46] VITALS: BP 114/62
[2018-02-15] MEDS ORDERED: predniSONE TAB* 20 MG PO ONE (14:51)
[2018-02-15] MEDS ORDERED: Amoxicillin PO (*) 500 MG CAP PO ONE (14:51)
--- NOTE | 2018-02-15 14:52 | UC ---
Ear Complaint HPI - HPI Summary HPI Summary: Patient with a history of MS, she has had sinus congestion for a 8 days, no has peircing pain in the left ear. she is worried about infection suppose to receive her medication infusion next week - History of Current Complaint Stated Complaint: sinus CONGESTION, AND EAR ACHE Time Seen by Provider: 02/15/18 14:36 Hx Obtained From: Patient Hx Last Menstrual Period: 10/15/17 ?: No Onset/Duration: Gradual Onset, Lasting Days Severity Initially: Moderate Severity Currently: Moderate Associated Signs/Symptoms: Positive: URI Symptoms - Allergies/Home Medications Allergies/Adverse Reactions: Allergies Allergy/AdvReac Type Severity Reaction Status Date / Time azithromycin Allergy Severe Rash, Verified 02/15/18 14:46 DIFFICULTY BREATHING sulfamethoxazole Allergy Severe FLUSHING Verified 02/15/18 14:46 [From Bactrim] RASH, CHILLS, JOINT PAIN trimethoprim [From Bactrim] Allergy Severe FLUSHING Verified 02/15/18 14:46 RASH, CHILLS, JOINT PAIN bee venom protein (honey bee) Allergy Intermediate Anaphylatic Verified 14:46 Shock SURGICAL TAPE Allergy RED RASH Uncoded 02/15/18 14:46 Home Medications: Home Medications Norgestimate-Ethinyl Estradiol [Tri-Sprintec 0.18/0.215/0.25 mg-35 Mcg] 1 tab PO DAILY 02/15/18 [History Confirmed 02/15/18] PMH/Surg Hx/FS Hx/Imm Hx Previously Healthy: Yes - Surgical History Surgical History: Yes Surgery Procedure, Year, and Place: 1986 TONSILLECTOMY, [place]. 2013 THYROID BIOPSY. Gallbladder - Family History Known Family History: Positive: None Negative: Respiratory Disease Family History: Noncontributory - Social History Alcohol Use: None Alcohol Amount: 1-2 Substance Use Type: None Smoking Status (MU): Never Smoked Tobacco - Immunization History Most Recent Influenza Vaccination: 2014/2015 Review of Systems All Other Systems Reviewed And Are Negative: Yes Constitutional: Positive: Fatigue Skin: Positive: Negative Eyes: Positive: Negative ENT: Positive: Sore Throat, Ear Ache, Sinus Congestion, Sinus Pain/Tenderness Respiratory: Positive: Cough Cardiovascular: Positive: Negative Gastrointestinal: Positive: Negative Genitourinary: Positive: Negative Motor: Positive: Negative Neurovascular: Positive: Negative Musculoskeletal: Positive: Negative Neurological: Positive: Headache Psychological: Positive: Negative Is Patient Immunocompromised?: No Physical Exam Triage Information Reviewed: Yes Appearance: Well-Nourished, Ill-Appearing, Pain Distress Eye Exam: Normal ENT: Positive: Nasal congestion, Nasal drainage, TM bulging, TM red - left, Sinus tenderness Dental Exam: Normal Neck exam: Normal Neck: Positive: Supple, Nontender, No Lymphadenopathy, Other: - goiter present Respiratory Exam: Normal Respiratory: Positive: Chest non-tender, No respiratory distress, No accessory muscle use, Wheezing, Inspiration Cardiovascular Exam: Normal Cardiovascular: Positive: RRR, No Murmur, Pulses Normal Abdominal Exam: Normal Abdomen Description: Positive: Nontender, No Organomegaly, Soft Bowel Sounds: Positive: Present Musculoskeletal Exam: Normal Neurological Exam: Normal Psychological Exam: Normal Skin Exam: Normal Ear Complaint Course/Dx - Course Course Of Treatment: hx obtained, exam performed ,meds reviewed, treated with abx and prednisone to help with the wheezing. - Differential Dx/Diagnosis Provider Diagnosis: Wheezing, Serous otitis media, Sinusitis Discharge - Sign-Out/Discharge Documenting (check all that apply): Patient Departure All imaging exams completed and their final reports reviewed: No Studies - Discharge Plan Condition: Stable Disposition: HOME Patient Education Materials: Sinusitis (ED), Serous Otitis Media (ED) Referrals: John Pearson MD [Primary Care Provider] - Additional Instructions: 1. take them medication as prescribed 2. Warm compresses to the ear to help with pain. 3. Follow up if not improving in the next 2-3 days - Billing Disposition and Condition Condition: STABLE Disposition: Home
== END 2018-02-15 15:02 | disposition home or self-care (01) ==
LOC: UCEAST 14:34
DX: J32.9 Chronic sinusitis, unspecified (principal); H65.90 Unspecified nonsuppurative otitis media, unspecified ear; R06.2 Wheezing; G35 Multiple sclerosis; Z88.1 Allergy status to other antibiotic agents; Z88.2 Allergy status to sulfonamides; Z91.030 Bee allergy status; Z91.048 Other nonmedicinal substance allergy status
CPT/HCPCS: 99213; A9270-GY; G0463; J7512

== ENCOUNTER 2019-01-20 14:31 | Emergency (ER) | payer OTHER ==
[2019-01-20 16:02] VITALS: BP 119/69
--- NOTE | 2019-01-20 17:17 | UC ---
Respiratory Complaint HPI - HPI Summary HPI Summary: patient with PMH of asthma---she has been traveling and diagnosed with influenza A---she has been on Augmentin for 4 days and has continued end expiratory wheeze and cough--she gets temp relief of wheeze with albuterol--- fevers seem to be getting better--pcp wanted her to get a cxr - History of Current Complaint Chief Complaint: UCRespiratory Stated Complaint: RESP COMPLAINT Time Seen by Provider: 01/20/19 17:11 Hx Obtained From: Patient Hx Last Menstrual Period: unknown ?: No Onset/Duration: Sudden Onset, Lasting Days - 5, Still Present Timing: Constant Pain Intensity: 0 Pain Scale Used: 0-10 Numeric Character: Cough: Productive Aggravating Factors: Recumbent Position Alleviating Factors: Bronchodilator Associated Signs And Symptoms: Positive: URI - Allergies/Home Medications Allergies/Adverse Reactions: Allergies Allergy/AdvReac Type Severity Reaction Status Date / Time azithromycin Allergy Severe Rash, Verified 01/20/19 16:02 DIFFICULTY BREATHING sulfamethoxazole Allergy Severe FLUSHING Verified 01/20/19 16:02 [From Bactrim] RASH, CHILLS, JOINT PAIN trimethoprim [From Bactrim] Allergy Severe FLUSHING Verified 01/20/19 16:02 RASH, CHILLS, JOINT PAIN bee venom protein (honey bee) Allergy Intermediate Anaphylatic Verified 16:02 Shock SURGICAL TAPE Allergy RED RASH Uncoded 02/15/18 14:46 Home Medications: Home Medications Amoxicillin/Clavulanate TAB* [Augmentin TAB 875*] 875 mg PO BID 01/20/19 [ History Confirmed 01/20/19] Budesonide/Formote 160/4.5(NF) [Symbicort 160/4.5 (NF)] 1 puff INH Q6HR [History Confirmed 01/20/19] Pseudoephedrine HCL ER TAB* [Sudafed 12 Hour*] 120 mg PO Q12HR 01/20/19 [ History Confirmed 01/20/19] Valacyclovir HCl [Valacyclovir] 500 mg PO DAILY 01/20/19 [History Confirmed ] guaiFENesin 100 mg/5 ml LIQ [Robitussin 100 mg/5ml LIQ] 5 ml PO Q6HR 01/20/19 [ History Confirmed 01/20/19] PMH/Surg Hx/FS Hx/Imm Hx Previously Healthy: No Respiratory History: Asthma - Surgical History Surgical History: Yes Surgery Procedure, Year, and Place: 1986 TONSILLECTOMY, [place]. 2013 THYROID BIOPSY. Gallbladder removed 2016 - Family History Known Family History: Positive: None Negative: Respiratory Disease Family History: Noncontributory - Social History Occupation: Employed Full-time Lives: With Family Alcohol Use: None Alcohol Amount: 1-2 Substance Use Type: None Smoking Status (MU): Never Smoked Tobacco - Immunization History Most Recent Influenza Vaccination: Review of Systems All Other Systems Reviewed And Are Negative: Yes Constitutional: Positive: Fever - that is resolving Skin: Positive: Negative Eyes: Positive: Negative ENT: Positive: Negative Respiratory: Positive: Cough, Other - expiratory wheeze Cardiovascular: Positive: Negative Gastrointestinal: Positive: Negative Genitourinary: Positive: Negative Motor: Positive: Negative Neurovascular: Positive: Negative Musculoskeletal: Positive: Negative Neurological: Positive: Negative Psychological: Positive: Negative Is Patient Immunocompromised?: No Physical Exam Triage Information Reviewed: Yes Appearance: Well-Appearing, No Pain Distress, Well-Nourished Vital Signs: Initial Vital Signs Temp 99.3 F 01/20/19 15:59 Pulse 75 01/20/19 15:59 Resp 16 01/20/19 15:59 BP 119/69 01/20/19 15:59 Pulse Ox 100 01/20/19 15:59 Vital Signs Reviewed: Yes Eye Exam: Normal Eyes: Positive: Conjunctiva Clear ENT Exam: Normal ENT: Positive: Normal ENT inspection, Hearing grossly normal, Pharynx normal, TMs normal. Negative: Nasal congestion, Trismus, Muffled voice, Hoarse voice Dental Exam: Normal Neck exam: Normal Neck: Positive: Supple, Nontender, No Lymphadenopathy Respiratory Exam: Normal Respiratory: Positive: Chest non-tender, No respiratory distress, No accessory muscle use, Wheezing Cardiovascular Exam: Normal Cardiovascular: Positive: RRR, No Murmur, Pulses Normal, Brisk Capillary Refill Musculoskeletal Exam: Normal Musculoskeletal: Positive: Strength Intact, ROM Intact, No Edema Neurological Exam: Normal Neurological: Positive: Alert, Muscle Tone Normal Psychological Exam: Normal Skin Exam: Normal Diagnostics - Radiology No standard instances Radiology Interpretation Completed By: Radiologist - CXR-no active cardiovascular disease Respiratory Course/Dx - Course Course Of Treatment: discussed prednisone option with patient---patient would like the rx but thinks she is going to wait a few days before she starts taking it--patient will finish Augmentin, start prednisone as needed and rx robitussin and codeine for unrelieved cough---plan to follow with pcp - Differential Dx/Diagnosis Provider Diagnosis: Acute bronchospasm due to viral infection Discharge ED - Sign-Out/Discharge Documenting (check all that apply): Patient Departure All imaging exams completed and their final reports reviewed: Yes - Discharge Plan Condition: Stable Disposition: HOME Prescriptions: guaiFENesin/CODIENE 100mg/10mg [Robitussin AC 100Mg/10Mg in 5 ml] 10 ml PO Q4H PRN #120 ml MDD 60 cc PRN Reason: Cough predniSONE [Prednisone 20 MG TAB] 20 mg PO DAILY 8 Days #12 tablet Patient Education Materials: Influenza (ED), Bronchospasm (ED) Referrals: Bigg Olivas MD [Primary Care Provider] - If Needed - Billing Disposition and Condition Condition: STABLE Disposition: Home
== END 2019-01-20 17:37 | disposition home or self-care (01) ==
LOC: UCEAST 14:31
DX: J98.01 Acute bronchospasm (principal); B97.89 Other viral agents as the cause of diseases classified elsewhere; J45.909 Unspecified asthma, uncomplicated; Z88.1 Allergy status to other antibiotic agents; Z88.2 Allergy status to sulfonamides; Z91.030 Bee allergy status; Z91.09 Other allergy status, other than to drugs and biological substances
CPT/HCPCS: 71046; 99212; G0463

== ENCOUNTER 2019-02-27 18:50 | Emergency (ER) | payer OTHER ==
--- OUTSIDE RECORDS SUMMARY | 2019-02-27 19:08 | XMS REPORT | Continuity of Care Document ---
:1970 External Reference #:[id number] Author Name Jc Keene M.D. (transmitted by agent of provider Krystina Whitley) Address [address] [place] [id number] Care Team Providers Name Role Phone Jarvis Dickerson MD - Sports Medicine Care Team Information Clinical Nutritionist [phone] Criselda Quintero MD - Neurology Care Team Information Clinical Nutritionist Apple Duron MD - Care Team Information Clinical Nutritionist [phone] Dermatology [facility] - Clinic/Center Care Team Information Clinical Nutritionist Maeve Waterman MD - Care Team Information Clinical Nutritionist [phone] Obstetrics & Gynecology Bigg Olivas MD - Endocrinology, Care Team Information Clinical Nutritionist [phone] Diabetes & Metabolism Problems Active Problems Provider Date Multiple sclerosis John Pearson M.D.,FACP Onset: 06/28/2009 Chronic interstitial cystitis John Pearson M.D.,FACP Onset: 10/14/2017 Vitamin D deficiency John Pearson M.D.,FACP Onset: 06/28/2009 Genital herpes simplex John Pearson M.D.,FACP Onset: 02/27/2013 Intermittent asthma John Pearson M.D.,FACP Onset: 10/05/2013 Ventricular premature beats John Pearson M.D.,FACP Onset: 10/05/2013 Non-toxic nodular goiter John Pearson M.D.,FACP Onset: 10/17/2014 Cholecystectomy John Pearson M.D.,FACP Onset: 09/16/2016 Note: h/o Migraine with aura John Pearson M.D.,FACP Onset: 05/21/2017 Note: rare Sprain of ankle Armando Healy MD Onset: 09/20/2017 Psoas tendinitis Nohelia Brink M.D. Onset: 11/25/2018 Social History Type Date Description Comments Sex Unknown Tobacco Use Start: Unknown Never Smoked Cigarettes ETOH Use Denies alcohol use Recreational Drug Use Denies Drug Use Tobacco Use Start: Unknown Patient has never smoked Smoking Status Reviewed: 02/23/19 Patient has never smoked Exercise Type/Frequency Exercises regularly 6-7days/week Allergies, Adverse Reactions, Alerts Active Allergies Reaction Severity Comments Date Azithromycin rash 05/04/2013 Bee Sting Shock Severe 10/05/2013 Sulfamethoxazole / Trimethoprim Moderate flushing, joint pain, 01/16/2017 headaches Sulfa Antibiotics 03/25/2018 Inactive Allergies NKDA 03/15/2008 Medications Active Medications SIG Qnty Indications Ordering Date Provider Ciprofloxacin HCL 1 tab by mouth 6tabs Z71.84 Kelby Lynch 2019 twice a day if Laurie Rojas 500mg Tablets needed for diarrhea Meloxicam 1 by mouth every 30tabs M25.552 Nohelia Brink, 11/25/2018 15mg day M.DChago Tablets Valtrex 2 pills by mouth 40tabs [facility], 06/17/2018 500mg Tablets twice a day x 10 MD days Lidocaine HCL (PF) 20mL to instill in 40ml N30.10 [facility], 2017 1% bladder [id number] MD Solution Lidocaine HCL (PF) for bladder John Lynch 10/14/2017 1% instillation Laurie Pearson,FACP Solution Famciclovir one tablet by mouth 30tabs A60.00 [facility], 07/29/2017 500mg twice a day x 5 MD Tablets days as needed exacerbation Norgestim-Eth Estrad one tablet by mouth 28tabs A60.00 [facility], 08/2017 Triphasic daily, skip placebo MD pills 0.18/0.215/0.25 mg-35 mcg Tablets Maxalt take one daily as 12tabs Criselda Quintero, 02/18/2016 10mg Tablets needed for M.D. migraines Eszopiclone take 1 tablet by 30tabs John Lynch 10/17/2014 3mg mouth every night Laurie Pearson,FACP Tablets at bedtime as needed for insomnia -- maximum daily dose of 1 tablet per day Epipen 2-Zane use prn 1units 995.0 Darcy Capps, 08/24/2012 N.P. 0.3mg/0.3ML Device Vitamin D 5 po every other Criselda Quintero, 08/05/2012 1000Unit day M.D. Tablets Prelief Unknown 340(65-50)mg (CA-P) Tablets Famotidine 1 by mouth every Unknown 20mg day Tablets Symbicort 1 puff twice a day Unknown 160-4.5mcg/Act Aerosol Heparin Sodium Instill 1 ML Into Unknown (Porcine) The Bladder as Needed For Bladder 16523Sxfk/ML Pain - Maximum Tamara Solution VSL#3 daily Unknown 112.5Bil Capsules Aloe Vera 2 tabs twice a day Unknown 25mg Capsules Quercetin 2 tabs once a day Unknown 50mg Tablets Zyrtec Allergy take one tablet by Unknown 10mg mouth in the Capsules evening prn Ocrevus Q6 months Unknown 300mg/10ML Solution Valacyclovir HCL 1 tab daily except 50tabs Melisa Gonsalves, 2 daily for 5 days MD 500mg Tablets pre-menstrual Flonase Inhale One [place] 16units 477.9 Ezekiel EChago 50mcg/Act Into Each Nostril Laurie Wills Suspension Once Daily prn Proair HFA 2 puffs by mouth 1units Unknown every 4 hours as 108(90Base) mcg/Act needed Aerosol Magnesium Citrate 2 tab po daily Unknown 120mg Tablets Immunizations CPT Code Status Date Vaccine Lot # [id number] Given 2019 Typhoid Vaccine [id number] Given 12/03/2017 Fluzone High Dose 77795 Given 11/25/2016 Influenza Virus Vaccine, Quadrivalent, Split, [id number] Preservative Free 40257 Given 09/24/2016 Pneumococcal Conjugate Vaccine 13 Valent For [id number] Intramuscular Use 31965 Given 10/24/2015 Influ Virus Vaccine, Quadrivalent, Split Virus, Im Fluzone not PF [id number] Given 11/30/2014 Fluvirin Im 3Yrs And Older [id number] Given 11/10/2013 Fluvirin Im 3Yrs And Older 96608 Given 11/10/2013 Influenza Virus Vaccine, Quadrivalent, Split, [id number] Preservative Free 95184 Given 10/05/2013 Hepatitis A Vaccine Adult Dosage [id number] 47854 Given 10/05/2013 Pneumonia Vaccine [id number] 58237 Given 01/02/2013 Flu Vaccine Split Virus Preservative Free For Indiv 3Yr Older 54053 Given 05/15/2011 Tdap - Tetanus/Diptheria/Acellular Pertussis [id number] 30853 Given 12/01/2010 Influenza Virus 3Yrs & Over [id number] 60239 Given 12/01/2009 Influenza Virus 3Yrs & Over 35595 Given 01/04/2009 Influenza Virus Vaccine, Pandemic Formulation [id number] 72801 Given 01/04/2009 Administration Swine Flu Shot 59396 Given 01/02/2009 Influenza Virus 3Yrs & Over Vital Signs Date Vital Result Comment 02/23/2019 11:13am Height 64 inches 5'4" Weight 140.00 lb Heart Rate 74 /min BP Systolic 114 mmHg BP Diastolic 66 mmHg Respiratory Rate 16 /min Pain Level 2 BMI (Body Mass Index) 24.0 kg/m2 2019 3:42pm Height 64 inches 5'4" Weight 144.12 lb Heart Rate 60 /min BP Systolic Sitting 104 mmHg BP Diastolic Sitting 60 mmHg Respiratory Rate 14 /min Body Temperature 97.8 F BMI (Body Mass Index) 24.7 kg/m2 Results Description No Information Available Procedures Date Code Description Status 11/10/2017 [id number] Mammogram Completed 10/30/2016 [id number] Mammogram Completed 10/30/2015 [id number] Mammogram Completed 10/04/2014 [id number] Mammogram Completed 08/18/2013 [id number] Mammogram Completed 02/08/2012 [id number] Mammogram Completed 02/14/2010 [id number] Mammogram Completed Medical Devices Description No Information Available Encounters Type Date Location Provider Dx Diagnosis Office Visit 2019 [facility] For Kelby Lynch Z23 Encounter for 3:40p Infectious Diseases Laurie Rojas immunization Z71.84 Encounter for health counseling related to travel Office Visit 11/25/2018 10:45a [facility] Nohelia Brink, M25.552 Pain in left at [place] Evette.Cris hip M76.12 Psoas tendinitis, left hip Assessments Date Code Description Provider 02/23/2019 M76.822 Posterior tibial tendinitis, left leg Jc Keene M.D. 2019 Z23 Encounter for immunization Kelby Rojas M.D. 2019 Z71.84 Encounter for health counseling related Kelby Rojas M.D. to travel 11/25/2018 M25.552 Pain in left hip Nohelia Brink M.D. 11/25/2018 M76.12 Psoas tendinitis, left hip Nohelia Brink M.D. 11/21/2018 Z01.419 Encounter for gynecological examination Deshawn Monreal (general) (routine) without abnormal findings 11/21/2018 A60.00 Herpesviral infection of urogenital OZ Monreal-Juanita system, unspecified 11/21/2018 Z12.31 Encounter for screening mammogram for COY Monreal malignant neoplasm of breast Plan of Treatment Future Appointment(s):03/24/2019 1:00 pm - Criselda Quintero M.D. at [facility]02/23/2019 - Jc Keene M.D.M76.822 Posterior tibial tendinitis, left legNew Therapy:Physical TherapyFollow up:Follow up: As needed Functional Status Description No Information Available Mental Status Description No Information Available Referrals Refer to Reason for Referral Status Appt Date Kelby Rojas MD Recurrent genital herpes Patient Declined becoming resistent to usual Rx. MS infusions likely exacerbating but help the MS. Valtrex 500mg for suppression, Famvir used to work well if had exacerbation while on Valtrex. Famvir no longer working. Taking Valtrex 1000 mg bid x 5-10 days if severe exacerbation. May 2018, Nov 2018. Thank you [address] [facility] [place] [address] [phone]
--- OUTSIDE RECORDS SUMMARY | 2019-02-27 19:08 | XMS REPORT | Continuity of Care Document ---
:1970 External Reference #:[id number] Author Name Kelby Rojas M.D. (transmitted by agent of provider Tonya Reed ) Address [address] [place] [id number] Care Team Providers Name Role Phone Jarvis Dickerson MD - Sports Medicine Care Team Information Grappler Criselda Quintero MD - Neurology Care Team Information Grappler [phone] Apple Duron MD - Care Team Information Grappler [phone] Dermatology [facility] - Clinic/Center Care Team Information Grappler Maeve Waterman MD - Care Team Information Grappler [phone] Obstetrics & Gynecology Bigg Olivas MD - Endocrinology, Care Team Information Grappler Diabetes & Metabolism Problems Active Problems Provider [...] Patient has never smoked Smoking Status Reviewed: 02/02/19 Patient has never smoked Exercise Type/Frequency Exercises regularly 6-7days/week Allergies, Adverse Reactions, Alerts Active Allergies Reaction Severity Comments Date Azithromycin rash 05/04/2013 Bee Sting Shock Severe 10/05/2013 Sulfamethoxazole / Trimethoprim Moderate flushing, joint pain, 01/16/2017 headaches Sulfa Antibiotics 03/25/2018 Inactive Allergies NKDA 03/15/2008 Medications Active Medications SIG Qnty Indications Ordering Date Provider Ciprofloxacin HCL 1 tab by mouth 6tabs Z71.84 Kelby DChago 2019 twice a day if Laurie Rojas 500mg Tablets needed for diarrhea Meloxicam 1 by mouth every 30tabs M25.552 Nohelia Brink, 11/25/2018 15mg day M.D. Tablets Valtrex 2 pills by mouth 40tabs [facility], 06/17/2018 500mg Tablets twice a day x 10 MD days Lidocaine HCL (PF) 20mL to instill in 40ml N30.10 [facility], 2017 1% bladder [id number] MD Solution Lidocaine HCL (PF) for bladder John Lynch 10/14/2017 1% instillation Laurie Pearson,FACP Solution Famciclovir one tablet by mouth 30tabs A60.00 [facility], 07/29/2017 500mg twice a day x 5 MD Tablets days as needed exacerbation Norgestim-Eth Estrad one tablet by mouth 28tabs A60.00 [facility]2017 Triphasic daily, skip placebo MD pills [...] Epipen 2-Zane use prn 1units 995.0 Darcy Génesis, 08/24/2012 N.P. 0.3mg/0.3ML Device Vitamin D 5 po every other Criselda Quintero, 08/05/2012 1000Unit day M.D. Tablets Prelief Unknown 340(65-50)mg (CA-P) Tablets Famotidine 1 by mouth every Unknown 20mg day Tablets Symbicort 1 puff twice a day Unknown 160-4.5mcg/Act Aerosol Heparin Sodium Instill 1 ML Into Unknown (Porcine) The Bladder as Needed For Bladder 47411Gpnu/ML Pain - Maximum Tamara Solution VSL#3 daily [...] MD 500mg Tablets pre-menstrual Flonase Inhale One Mosby 16units 477.9 Ezekiel Mix 50mcg/Act Into Each Nostril Laurie Wills Suspension Once Daily prn Proair HFA 2 puffs by mouth 1units Unknown every 4 hours as 108(90Base) mcg/Act needed Aerosol Magnesium Citrate 2 tab po daily Unknown 120mg Tablets Immunizations CPT Code Status Date Vaccine Lot # [id number] Given 2019 Typhoid Vaccine [id number] Given 12/03/2017 Fluzone High Dose 14897 Given 11/25/2016 Influenza Virus Vaccine, Quadrivalent, Split, [id number] Preservative Free 31276 Given 09/24/2016 Pneumococcal Conjugate Vaccine 13 Valent For [id number] Intramuscular Use 02252 Given 10/24/2015 Influ Virus Vaccine, Quadrivalent, Split Virus, Im Fluzone not PF Q2037 Given 11/30/2014 Fluvirin Im 3Yrs And Older Q2037 Given 11/10/2013 Fluvirin Im 3Yrs And Older 65355 Given 11/10/2013 Influenza Virus Vaccine, Quadrivalent, Split, [id number] Preservative Free 91368 Given 10/05/2013 Hepatitis A Vaccine Adult Dosage [id number] 65052 Given 10/05/2013 Pneumonia Vaccine [id number] 00827 Given 01/02/2013 Flu Vaccine Split Virus Preservative Free For Indiv 3Yr Older 15560 Given 05/15/2011 Tdap - Tetanus/Diptheria/Acellular Pertussis [id number] 07908 Given 12/01/2010 Influenza Virus 3Yrs & Over [id number] 08818 Given 12/01/2009 Influenza Virus 3Yrs & Over 69737 Given 01/04/2009 Influenza Virus Vaccine, Pandemic Formulation [id number] 47669 Given 01/04/2009 Administration Swine Flu Shot 31311 Given 01/02/2009 Influenza Virus 3Yrs & Over Vital Signs Date Vital Result Comment 2019 3:42pm Height 64 inches 5'4" Weight 144.12 lb Heart Rate 60 /min BP Systolic Sitting 104 mmHg BP Diastolic Sitting 60 mmHg Respiratory Rate 14 /min Body Temperature 97.8 F BMI (Body Mass Index) 24.7 kg/m2 11/25/2018 10:52am Height 62.75 inches 5'2.75" Weight 143.00 lb Heart Rate 76 /min BP Systolic 98 mmHg BP Diastolic 64 mmHg BMI (Body Mass Index) 25.5 kg/m2 Results Description No Information Available Procedures Date Code Description Status 11/10/2017 [id number] Mammogram Completed 10/30/2016 [id number] Mammogram Completed 10/30/2015 [id number] Mammogram Completed 10/04/2014 [id number] Mammogram Completed 08/18/2013 [id number] Mammogram Completed 02/08/2012 [id number] Mammogram Completed 02/14/2010 [id number] Mammogram Completed Medical Devices Description No Information Available Encounters Type Date Location Provider Dx Diagnosis Office Visit 11/25/2018 [facility] Nohelia Brink, M25.552 Pain in left [place] [facility] M76.12 Psoas tendinitis, left hip Assessments Date Code Description Provider 2019 Z23 Encounter for immunization Kelby Rojas [...] 1:00 pm - Criselda Quintero M.D. at [facility]2019 - Kelby Rojas M.D.Z23 Encounter for jtutvgnprtsbV04.84 Encounter for health counseling related to travelNew Medication:Ciprofloxacin HCL 500 mg - 1 tab by mouth twice a day if needed for diarrheaRecommendations:Typhoid vaccine today Traveller's diarrhea and insect bite prevention discussed Functional Status Description No Information Available Mental Status Description No Information Available Referrals Refer to Reason for Referral Status Appt Kelby Rojas MD Recurrent genital herpes Patient Declined becoming resistent to usual Rx. MS infusions likely exacerbating but help the MS. Valtrex 500mg for suppression, Famvir used to work well if had exacerbation while on Valtrex. Famvir no longer working. Taking Valtrex 1000 mg bid x 5-10 days if severe exacerbation. May 2018, Nov 2018. Thank you [address] [place] [place] [address] [place] [id number] [phone]
--- OUTSIDE RECORDS SUMMARY | 2019-02-27 19:09 | XMS REPORT | Continuity of Care Document ---
:1970 External Reference #:[id number] Author Name AALIYAH Crews Address [address] [place] [id number] Care Team Providers Name Role Phone Zeke Pearson M.D. - Family Care Team Information Record Center Specialist Medicine Bigg Olivas M.D. - Family Medicine Care Team Information Record Center Specialist [phone] Problems Active Problems Provider Date Toxic effect of venom Sandra Medina M.D. Onset: 05/18/2013 Allergic rhinitis due to pollen Sandra Medina M.D. Onset: 05/18/2013 Allergic rhinitis Sandra Medina M.D. Onset: 05/18/2013 Allergy Sandra Medina M.D. Onset: 05/18/2013 Allergic condition Sandra Medina M.D. Onset: 12/15/2013 Allergic asthma without status asthmaticus Sandra Medina M.D. Onset: 02/2014 Cough Marcin Au M.D. Onset: 01/21/2015 Exacerbation of mild persistent asthma AALIYAH Avila Onset: 06/24/2015 Allergic rhinitis due to animals AALIYAH Avila Onset: 06/24/2015 Uncomplicated moderate persistent asthma Sandra Medina M.D. Onset: 07/18 Toxic effect of venom of bees, accidental Sandra Median M.D. Onset: (unintentional), subsequent encounter Body mass index 20-24 - normal Jeremiah Christian M.D. Onset: 04/02/2016 Acute sinusitis Jeremiah Christian M.D. Onset: 04/02/2016 Uncomplicated moderate persistent asthma Sandra Medina M.D. Onset: 09/18 Social History Type Date Description Comments Sex Unknown ETOH Use Occasionally consumes alcohol Tobacco Use Start: Unknown Patient has never smoked Recreational Drug Use Former Drug User Allergies, Adverse Reactions, Alerts Active Allergies Reaction Severity Comments Date Azithromycin rash 12/15/2013 Bactrim Urticaria 01/29/2017 Medications Active Medications SIG Qnty Indications Ordering Date Provider Prednisone 10mg tomorrow, 14tabs J45.40 Ciera Taylor, 01/27/2019 5mg Tablets then 5 mg days 4 MANAGEMENT SCIENTIST-C days please give 14 pills Prednisone 40mg for 3 days, qs J45.40 Ciera Taylor, 01/27/2019 10mg Tablets 30mg for 3 days, MANAGEMENT SCIENTIST-C 20 mg for 3 days, 10mg for 3 days and 5mg for 2 days Use in [place] if needed Auvi-Q use as directed. 2units J45.40 Sandra Alas 09/09/2018 0.3mg/0.3ML im. Laurie Medina Solution Auto-Inject Flovent HFA 2 puff inhalation 36gm Cieracat Taylor, 06/14/2018 110mcg/Act twice a day MANAGEMENT SCIENTIST-C Aerosol Symbicort 1 puffs inhalation 3units Ciera Taylor, 02/04/2018 80-4.5mcg/Act twice a day MANAGEMENT SCIENTIST-C Aerosol Proair Respiclick 2 puffs every 4 1units J45.40 Ciera Taylor, 2016 hours as needed MANAGEMENT SCIENTIST-C 108(90Base) mcg/Act for cough, wheeze Aerosol or shortness of breath Epipen 2-Zane use as directed 2unvikash Alas 12/20/2015 Laurie Medina 0.3mg/0.3ML Solution Auto-Inject Prednisone Take 2 Tablets By Unknown 20mg Tablets Mouth In The Morning For 4 Days, Then Take 1 Tablet By Mouth Inthe Morning For 4 Days Quercetin Unknown 50mg Tablets Lidocaine HCL (PF) Instill Into Unknown 1% Bladder as Needed Solution For Bladder Pain But No More Than Once Per Day Heparin Sodium Instill 1 ML Into Unknown (Porcine) The Bladder as 26603Psae/ML Needed For Bladder Solution Pain - Maximum Daily Dose Of 1 ML Aloe Vera 3 caps TiD Unknown 25mg Capsules Valacyclovir HCL 2 tab once a day Unknown 500mg Tablets Ocrevus Unknown 300mg/10ML Solution Zyrtec Allergy 1 every day prn Unknown 10mg Tablets Flonase Allergy 1 spray each 47.4ml Lilia McNairn, Relief nostril everyday M.D. 50mcg/Act Suspension Lunesta prn Unknown 5mg Tablets Magnesium Citrate Unknown 200mg Tablets Vitamin D Unknown 5000Unit Tablets Medications Administered in Office Medication SIG Qnty Indications Ordering Provider Date AALIYAH Green 10/23/2016 [id number] 1 cc Injection Injection Allergy Injection 11/04/2012 Injection Immunizations CPT Code Status Date Vaccine Lot # [id number] Given 11/22/2013 Influenza Vaccine 24682 Given 10/23/2013 Influenza Vaccine 69123 Given 09/22/2013 Pneumococcal Vaccine 41354 Given Unknown Pneumococcal Vaccine 08966 Given Unknown Pneumococcal Vaccine 31009 Given Unknown Influenza Vaccine 94595 Given Unknown Influenza Vaccine 36566 Given Unknown Influenza Vaccine 87670 Given Unknown Influenza Vaccine 38555 Given Unknown Influenza Vaccine 53879 Given Unknown Influenza Vaccine 71114 Given Unknown Influenza Preservative Free. 3+ Years Of Age Vital Signs Date Vital Result Comment 01/27/2019 2:23pm Height 63 inches 5'3" Weight 144.00 lb Weight 65.318 kg Respiratory Rate 2076 /min O2 % BldC Oximetry 98 % BP Systolic 104 mmHg BP Diastolic 64 mmHg Asthma Control Test 6 Fractional Exhaled Nitric Oxide 9 BMI (Body Mass Index) 25.5 kg/m2 09/09/2018 3:29pm Height 63 inches 5'3" Weight 144.00 lb Weight 65.318 kg Respiratory Rate 16 /min Heart Rate 77 /min O2 % BldC Oximetry 98 % BP Systolic 110 mmHg BP Diastolic 62 mmHg Asthma Control Test 24 Fractional Exhaled Nitric Oxide 11 BMI (Body Mass Index) 25.5 kg/m2 Results Description No Information Available Procedures Date Code Description Status 01/27/2019 94596 Nitric Oxide Gas Determination Completed 09/09/2018 93547 Nitric Oxide Gas Determination Completed 09/09/2018 98583 Pre PFT Completed Medical Devices Description No Information Available Encounters Type Date Location Provider Dx Diagnosis Office Visit 01/27/2019 Nan Taylor, J45.40 Moderate persistent 2:20p MANAGEMENT SCIENTIST-C asthma, uncomplicated J30.89 Other allergic rhinitis J30.2 Other seasonal allergic rhinitis J01.90 Acute sinusitis, unspecified T63.441D Toxic effect of venom of bees, accidental, subs Office Visit 09/09/2018 3:20p Nan Medina J45.40 Moderate persistent M.D. asthma, uncomplicated J30.89 Other allergic rhinitis T63.441D Toxic effect of venom of bees, accidental, subs J30.2 Other seasonal allergic rhinitis Assessments Date Code Description Provider 01/27/2019 J45.40 Moderate persistent asthma, uncomplicated Sandra Medina M.D. 01/27/2019 J45.40 Moderate persistent asthma, uncomplicated Ciera Uldrich , MANAGEMENT SCIENTIST-C 01/27/2019 J30.89 Other allergic rhinitis Sandra Medina M.D. 01/27/2019 J30.89 Other allergic rhinitis Cierarosmery Stephensonich, MANAGEMENT SCIENTIST-C 01/27/2019 J30.2 Other seasonal allergic rhinitis Sandra Medina M.D. 01/27/2019 J30.2 Other seasonal allergic rhinitis Ciera Uldrich, MANAGEMENT SCIENTIST-C 01/27/2019 J01.90 Acute sinusitis, unspecified Sandra Medina M.D. 01/27/2019 J01.90 Acute sinusitis, unspecified Ciera Uldrich, MANAGEMENT SCIENTIST-C 01/27/2019 T63.441D Toxic effect of venom of bees, accidental Ciera Uldrich, MANAGEMENT SCIENTIST-C (unintentional), s 09/09/2018 J45.40 Moderate persistent asthma, uncomplicated Sandra Medina M.D. 09/09/2018 J30.89 Other allergic rhinitis Sandra Medina M.D. 09/09/2018 T63.441D Toxic effect of venom of bees, accidental Sandra Medina M.D. (unintentional), s 09/09/2018 J30.2 Other seasonal allergic rhinitis Sandra Medina M.D. Plan of Treatment Future Appointment(s):05/19/2019 8:40 am - Sandra Medina M.D. at [place] Functional Status Description No Information Available Mental Status Description No Information Available Referrals Description No Information Available
[2019-02-27] MEDS ORDERED: oxyCODONE/Acetamin 5/325 MG* TAB PO ONE (19:17)
--- NOTE | 2019-02-27 19:17 | ED ---
Burn - HPI Summary HPI Summary: This patient is a 49 year old female presenting to [facility] with a chief complaint of oil san to the skin. She states she was cooking fish when the oil in the randolph splashed and she experienced san to the right side of the face, mouth and chin, down her neck and inside her lips. She states she has a Hx of MS and has an infusion tomorrow. She rates her pain 9/10 in severity. - History of Current Complaint Chief Complaint: EDBurnSmokeInh Stated Complaint: OIL BURN ON FACE PER PT Time Seen by Provider: 02/27/19 19:11 Hx Obtained From: Patient Hx Last Menstrual Period: unknown Occurred: Hours Ago Length of Exposure: Hours Pain Intensity: 9 Pain Scale Used: 0-10 Numeric Location: Face - Allergy/Home Medications Allergies/Adverse Reactions: Allergies Allergy/AdvReac Type Severity Reaction Status Date / Time azithromycin Allergy Severe Rash, Verified 02/27/19 19:04 DIFFICULTY BREATHING sulfamethoxazole Allergy Severe FLUSHING Verified 02/27/19 19:04 [From Bactrim] RASH, CHILLS, JOINT PAIN trimethoprim [From Bactrim] Allergy Severe FLUSHING Verified 02/27/19 19:04 RASH, CHILLS, JOINT PAIN bee venom protein (honey bee) Allergy Intermediate Anaphylatic Verified 19:04 Shock SURGICAL TAPE Allergy RED RASH Uncoded 02/27/19 19:04 PMH/Surg Hx/FS Hx/Imm Hx Endocrine/Hematology History: Reports: Hx Thyroid Disease - goiter Denies: Hx Diabetes, Hx Anemia Cardiovascular History: Denies: Hx Hypertension, Hx Pacemaker/ICD Respiratory History: Reports: Hx Asthma Denies: Hx Chronic Obstructive Pulmonary Disease (COPD) GI History: Reports: Hx Gastroesophageal Reflux Disease - ACID REFLUX, Other GI Disorders - HX MILD GASTRITIS - 2016 Denies: Hx Jaundice, Hx Ulcer History: Reports: Other Problems/Disorders - HX OF UTI'S NONE IN LAST YEAR Denies: Hx Renal Disease Musculoskeletal History: Reports: Hx Bursitis - HX OF LEFT HIP, Other Musculoskeletal History - MS Denies: Hx Osteoporosis Sensory History: Reports: Hx Contacts or Glasses - READING GLASSES Opthamlomology History: Reports: Hx Contacts or Glasses - READING GLASSES Neurological History: Reports: Hx Migraine - RARELY 1 PER YEAR, Other Neuro Impairments/Disorders - MULTIPLE SCLEROSIS - MILD WEAKNESS ON LEFT SIDE - FOOT AND HAND Psychiatric History: Denies: Hx Panic Disorder - Cancer History Hx Chemotherapy: No Hx Radiation Therapy: No - Surgical History Surgery Procedure, Year, and Place: 1986 TONSILLECTOMY, [place]. 2013 THYROID BIOPSY. Gallbladder removed 2017 Hx Anesthesia Reactions: Yes - VOMITING/ THYROID - LOCAL- NEEDED TO INCREASE FOR EFFECT Infectious Disease History: No Infectious Disease History: Reports: History Other Infectious Disease - HSV Denies: Hx Clostridium Difficile, Hx Hepatitis, Hx Human Immunodeficiency Virus (HIV), Hx of Known/Suspected MRSA, Hx Shingles, Hx Tuberculosis, Hx Known/ Suspected VRE, Hx Known/Suspected VRSA, Traveled Outside the [place] in Last 30 Days - Family History Known Family History: Negative: Respiratory Disease Family History: Noncontributory - Social History Alcohol Use: None Alcohol Amount: 1-2 Hx Substance Use: No Substance Use Type: Reports: None Hx Tobacco Use: No Smoking Status (MU): Never Smoked Tobacco Review of Systems Negative: Fever Positive: Other - San All Other Systems Reviewed And Are Negative: Yes Physical Exam - Summary Physical Exam Summary: Appearance: Well-appearing, Well-nourished, lying in bed comfortable Skin: Warm, dry, no obvious rash. 2nd degree san about the chin and onto the lip. Eyes: sclera anicteric, no conjunctival pallor ENT: mucous membranes moist Neck: deferred Respiratory: No signs of respiratory distress Cardiovascular: Appears well perfused, pulses are nml Abdomen: deferred Musculoskeletal: Moving all 4 extremities without obvious discomfort Neurological: Awake and alert, mentation is normal, speech is fluent and appropriate Psychiatric: affect is normal, does not appear anxious or depressed Triage Information Reviewed: Yes Vital Signs On Initial Exam: Initial Vitals Temp Pulse Resp BP Pulse Ox 99.1 F 78 19 158/98 99 02/27/19 19:02 02/27/19 19:02 02/27/19 19:02 02/27/19 19:02 02/27/19 19:02 Vital Signs Reviewed: Yes Burn Calculation - [place] Formula for Fluid Resuscitation Weight: 63.503 kg 24 -Hour Fluid Replacement: 0.0 Procedures - Sedation Patient Received Moderate/Deep Sedation with Procedure: No Diagnostics - Vital Signs Vital Signs Temp Pulse Resp BP Pulse Ox 02/27/19 19:02 99.1 F 78 19 158/98 99 - Laboratory Lab Statement: Any lab studies that have been ordered have been reviewed, and results considered in the medical decision making process. Burn Course/Dx - Course Course Of Treatment: This patient is a 49 year old female presenting to [facility] with a chief complaint of oil san to the skin. She states she was cooking fish when the oil in the randolph splashed and she experienced san to the right side of the face, mouth and chin, down her neck and inside her lips. Physical exam revealed 2nd degree san to the chin onto the lip. Burn care was discussed with the patient, including with exposure to the sun as they are planning a trip to [place]. Pain medication was administered. Plan for discharge was discussed with the patient and she was agreeable with this plan. - Diagnoses Provider Diagnosis: Superficial burn Discharge ED - Sign-Out/Discharge Documenting (check all that apply): Patient Departure - Discharge - Discharge Plan Condition: Stable Disposition: HOME Patient Education Materials: Superficial Burn (ED) Referrals: Bigg Olivas MD [Primary Care Provider] - If Needed - Billing Disposition and Condition Condition: STABLE Disposition: Home - Attestation Statements Document Initiated by Viktoriya: Yes Documenting Walteribe: Jc Chacko Provider For Whom Viktoriya is Documenting (Include Credential): Carlito Tenorio MD Scribe Attestation: Jc Orlando, milesed for Carlito Tenorio MD on 02/28/19 at 0523. Scribe Documentation Reviewed: Yes Provider Attestation: The documentation as recorded by the Jc esteves accurately reflects the service I personally performed and the decisions made by me, Carlito Tenorio MD Status of Scribe Document: Viewed
[2019-02-27 21:08] VITALS: BP 119/67
== END 2019-02-27 20:40 | disposition home or self-care (01) ==
LOC: ED 18:50
DX: T20.23XA Burn of second degree of chin, initial encounter (principal); T20.22XA Burn of second degree of lip(s), initial encounter; X10.2XXA Contact with fats and cooking oils, initial encounter; Y92.9 Unspecified place or not applicable; E03.9 Hypothyroidism, unspecified; K21.9 Gastro-esophageal reflux disease without esophagitis
CPT/HCPCS: 99282; A9270-GY

== ENCOUNTER 2020-07-30 11:34 | Observation (INO) ==
[2020-07-30 12:12] LABS: ABS Lymphocytes 0.4 10^3/ul (1.0-4.8); ABS Monocytes 0.1 10^3/ul (0-0.8); ABS Neutrophils 5.5 10^3/ul (1.5-7.7); Eosinophil % 0.1 %; Hematocrit 40 % (35-47); Hemoglobin 13.6 g/dL (12.0-16.0); Mean Corpuscular HGB Conc 34 g/dL (31-36); Mean Corpuscular Hemoglobin 32 pg (27-31); Mean Corpuscular Volume 94 fL (80-97); Mean Platelet Volume 8.1 fL (7.4-10.4); Platelet Count 193 10^3/uL (150-450); Red Blood Count 4.24 10^6 /uL (3.70-4.87); Red Cell Distribution Width 12 % (10-15)
[2020-07-30] MEDS ORDERED: diPHENhydraMINE IV 50 MG/ML 1 ml VIAL (BENADRYL) IV PRN (12:28)
[2020-07-30] MEDS ORDERED: Ondansetron ODT 4 mg TAB 4 MG TAB PO PRN (12:28)
[2020-07-30] MEDS ORDERED: Ondansetron 4 mg VIAL 2 MG/ML 2 ml VIAL IV PRN (12:28)
[2020-07-30] MEDS ORDERED: Magnesium Hydroxide LIQ 30 ML UDC PO PRN (12:28)
[2020-07-30] MEDS ORDERED: Lactulose 30 ml UDC PO PRN (12:28)
[2020-07-30] MEDS ORDERED: diPHENhydraMINE 25 mg TAB PO PRN (12:28)
[2020-07-30 12:31] LABS: Albumin 4.6 g/dL (3.2-5.2); Albumin/Globulin Ratio 1.8 (1-3); Calcium 8.7 mg/dL (8.6-10.3); EGFR African American 112.7 (>60); EGFR Non-African American 93.2 (>60); Globulin 2.5 g/dL (2-4); Potassium 3.8 mmol/L (3.5-5.0); Total Bilirubin 0.3 mg/dL (0.2-1.0); Total Protein 7.1 g/dL (6.4-8.9)
[2020-07-30 16:41] LABS: INR 1.15 (0.82-1.09)
[2020-07-30] MEDS ORDERED: Rizatriptan ODT 10 mg TAB (NF) PO PRN (16:57)
[2020-07-30] MEDS ORDERED: Eszopiclone 3 mg TAB (NF) PO PRN (16:57)
[2020-07-30] MEDS ORDERED: Albuterol HFA INHALER 8 gm MDI INH PRN (17:09)
[2020-07-30] MEDS: HYDROcodone/ACETAMIN 5/325 mg TAB PO PRN ×2 (17:57→22:22)
[2020-07-30] MEDS ORDERED: Mometasone 220 MCG MDI INH SCH (20:00)
[2020-07-30] MEDS ORDERED: FAMCICLOVIR 500 MG PO SCH (21:00)
[2020-07-30] MEDS: Magnesium Hydroxide LIQ 30 ML UDC PO SCH (22:23)
[2020-07-30] MEDS: CALCIUM GLYCEROPHOSPHATE 65 MG PO SCH (23:41)
[2020-07-31] MEDS: HYDROcodone/ACETAMIN 5/325 mg TAB PO PRN ×2 (03:14→09:37)
[2020-07-31 06:56] LABS: Hematocrit 35 % (35-47); Hemoglobin 11.9 g/dL (12.0-16.0); Mean Platelet Volume 8.4 fL (7.4-10.4); Platelet Count 188 10^3/uL (150-450)
[2020-07-31 07:01] LABS: Calcium 8.2 mg/dL (8.6-10.3); EGFR African American 123.3 (>60); EGFR Non-African American 101.9 (>60)
[2020-07-31] MEDS ORDERED: Estradiol VAG CM (NF) 1 APPLIC TUBE VAGINAL SCH (09:00)
[2020-07-31] MEDS ORDERED: GLATIRAMER 20 MG/ML SUBCUT SCH (09:00)
[2020-07-31] MEDS ORDERED: Fluticasone HFA 220 mcg(NF) MDI INH SCH (09:00)
[2020-07-31] MEDS ORDERED: Vitamin THERAPEUTIC TAB PO SCH (09:00)
[2020-07-31] MEDS: Magnesium Hydroxide LIQ 30 ML UDC PO SCH (09:37)
[2020-07-31] MEDS: CALCIUM GLYCEROPHOSPHATE 65 MG PO SCH (09:39)
[2020-07-31 13:06] VITALS: BP 110/57
== END 2020-07-31 12:44 | disposition home or self-care (01) ==
LOC: ED 11:34 → MEDTELE 11:34
PROVIDERS: ADMIT Internal Medicine; ATTEND Orthopaedic Surgery Adult Reconstructive Orthopaedic Surgery